=== PATIENT | female | born 1965 | race Caucasian/White ===

== ENCOUNTER 2016-06-19 12:49 | Emergency (ER) | payer SELFPAY ==
[~2016-06-19] VITALS: Ht 162.6 cm; Wt 118.0 kg
[~2016-06-19 12:49] MED LIST: AUGM875T PO; CYCL5TAB PO; GLIP5TAB8 PO; METF500T PO; OMEP40CA2 PO; VENTAER INH
[2016-06-19 12:55] VITALS: BP 136/88; PULSE 80; RESP 20; TEMP 97.7; O2SAT 97
--- NOTE | 2016-06-19 13:01 | PD ---
Physical Exam Date Seen by Provider: Jun 19, 2016 Time Seen by Provider: 12:56 Narrative Patient seen in Triage with Complaints of possible Hyperglycemia. Patient hasn' t been checking her Glucose due to being low on her Test Strips. Patient hasn' t felt well the past couple of days, with increased ROSADO, generalized Weakness, and increased Urination. Denies Fever, Chills, Nausea, Vomiting, Diarrhea, or Abdominal Pain. Glucose Finger Stick 326 in Triage. Vital Signs Stable. Patient awaiting Bed Placement. [facility] Medical Record Reviewed: Yes Supervised Visit with ARTURO: Yes Condition: Stable Alex Hernandez Jun 19, 2016 13:01
[2016-06-19] MEDS ORDERED: SODIUM CHLOR 0.9% 1000 ML INJ 1,000 ML IV SCH (14:09)
[2016-06-19] MEDS ORDERED: SODIUM CHLOR 0.9% 1000 ML INJ 1,000 ML IV ONE (14:15)
[2016-06-19] MEDS ORDERED: SODIUM CHLORIDE 0.9% FLUSH 10 ML FLUSH IV FLUSH PRN (14:15)
[2016-06-19] MEDS ORDERED: ONDANSETRON HCL 4 MG/2 ML VIAL IVP ONE (14:15)
--- NOTE | 2016-06-19 14:42 | RADRPT ---
EXAM DATE/TIME: 06/19/2016 14:21 [place] COMPARISON: CHEST SINGLE AP, February 16, 2016, 21:34. INDICATIONS : Cough, wheezing, shortness of breath for 1 week. MEDICAL HISTORY : None. SURGICAL HISTORY : None. ENCOUNTER: Initial ACUITY: 1 week PAIN SCORE: 0/10 LOCATION: chest FINDINGS: A single view of the chest demonstrates the lungs to be symmetrically aerated without evidence of mas s, infiltrate or effusion. The cardiomediastinal contours are unremarkable. Osseous structures are intact. CONCLUSION: 1. No acute cardiopulmonary disease. Alden Aguirre MD on June 19, 2016 at 14:41 Board Certified Radiologist. This report was verified electronically.
--- NOTE | 2016-06-19 14:53 | PD ---
HPI Chief Complaint: Diabetic Time Seen by Provider: 14:04 Travel History International Travel<30 days: No Contact w/Intl Traveler<30days: No Traveled to known affect area: No History of Present Illness HPI Patient is a 51-year-old female with history of diabetes type II who presents to emergency room with multiple complaints. Patient reports that she has not been feeling well for the past few days. Patient reports that she has been coughing, reports that she has been bringing up thick green mucous. Reports that she has grandchildren at home who were sick with similar symptoms. Patient reports that she has been having subjective fevers and chills, reports that she isn't feeling nauseous but has not vomited. Reports no recent travels or trips. Reports that she is not having any chest pain or shortness of breath at this time. Patient was concerned as she has overall decreased by mouth intake but blood sugar prior to coming to the emergency room was 439. PFSH Past Medical History Asthma: Yes Autoimmune Disease: No Blood Disorders: No Heart Rhythm Problems: No Cancer: No Cardiac Catheterization: Yes (2011) Cardiovascular Problems: Yes High Cholesterol: No Chest Pain: Yes Congestive Heart Failure: No COPD: No Diabetes: Yes Patient Takes Glucophage: Yes Diminished Hearing: No Endocrine: No Gastrointestinal Disorders: Yes (gerd) GERD: Yes Genitourinary: No Headaches: Yes Hypertension: No Implanted Vascular Access Dvce: No Kidney Stones: Yes Musculoskeletal: Yes (lower back pain) Neurologic: Yes Psychiatric: No Reproductive: No Respiratory: No Immunizations Current: Yes Migraines: Yes Myocardial Infarction: No Sleep Apnea: No Thyroid Disease: No Ulcer: No Tetanus Vaccination: > 5 Years Influenza Vaccination: No ?: Not Menopausal: Yes : 3 Para: 3 Tubal Ligation: Yes Past Surgical History Abdominal Surgery: Yes (EXPLORATORY FOR A MASS IN ABDOMEN) Cardiac Surgery: Yes (CATH, NO STENT. ARTERY OCCLUSION IN RIGHT FOREARM) Coronary Artery Bypass Graft: No Ear Surgery: No Endocrine Surgery: No Eye Surgery: No Genitourinary Surgery: No Gynecologic Surgery: Yes (OOPHERECTOMY 1998) Hysterectomy: Yes Neurologic Surgery: No Oral Surgery: No Thoracic Surgery: No Other Surgery: Yes (EXP LAP) Family History Family Myocardial Infarction: Yes (mother and father) Social History Alcohol Use: No Tobacco Use: No (never) Substance Use: No Allergies-Medications (Allergen,Severity, Reaction): Coded Allergies: Chocolate (Verified Allergy, Severe, Anaphylaxis, 06/19/16) Vancomycin (Verified Allergy, Severe, ITCH AND FEELS HOT STS LIKE RED MAN SYNDROME, 06/19/16) Reported Meds & Prescriptions Reported Meds & Active Scripts Active Azithromycin 500 Mg Tab 500 Mg PO DAILY Omeprazole 40 Mg Cap 40 Mg PO DAILY Reported Glipizide 5 Mg Tab 5 Mg PO BIDAC Take 30 minutes before a meal Metformin (Metformin HCl) 500 Mg Tab 500 Mg PO QID With meals Review of Systems General / Constitutional: No: Fever Eyes: No: Visual changes HENT: No: Headaches Cardiovascular: No: Chest Pain or Discomfort Respiratory: Positive: Cough, No: Shortness of Breath Gastrointestinal: Positive: Nausea, No: Vomiting, Abdominal Pain Genitourinary: No: Dysuria Musculoskeletal: No: Pain Skin: No Rash Neurologic: No: Weakness Psychiatric: No: Depression Endocrine: No: Polydipsia Hematologic/Lymphatic: No: Easy Bruising Physical Exam Narrative GENERAL: NAD, Nontoxic SKIN: Focused skin assessment warm/dry. HEAD: Atraumatic. Normocephalic. EYES: Pupils equal and round. ENT: No nasal bleeding or discharge. Mucous membranes pink and moist. NECK: Trachea midline. No JVD. CARDIOVASCULAR: Regular rate and rhythm. No murmur appreciated. RESPIRATORY: No accessory muscle use. Clear to auscultation. Breath sounds equal bilaterally. GASTROINTESTINAL: Abdomen soft, non-tender, nondistended. Hepatic and splenic margins not palpable. MUSCULOSKELETAL: No obvious deformities. No clubbing. No cyanosis. No edema. NEUROLOGICAL: Awake and alert. Normal speech. PSYCHIATRIC: Appropriate mood and affect; insight and judgment normal. Data Data Last Documented VS Vital Signs Date Time Temp Pulse Resp B/P Pulse Ox O2 Delivery O2 Flow Rate FiO2 06/19/16 16:00 65 16 98 Room Air 06/19/16 12:55 97.7 136/88 Orders Complete Blood Count With Diff (06/19/16 14:09) Comprehensive Metabolic Panel (06/19/16 14:09) Urinalysis - C+S If Indicated (06/19/16 14:09) Iv Access Insert/Monitor (06/19/16 14:09) Ecg Monitoring (06/19/16 14:09) Ondansetron Inj (Zofran Inj) (06/19/16 14:15) Sodium Chlor 0.9% 1000 Ml Inj (Ns 1000 M (06/19/16 14:09) Sodium Chloride 0.9% Flush (Ns Flush) (06/19/16 14:15) Chest, Single Ap (06/19/16 14:09) Influenzae A/B Antigen (06/19/16 14:09) Bedside Glucose IVANNA.AC&HS (06/19/16 14:09) Sodium Chlor 0.9% 1000 Ml Inj (Ns 1000 M (06/19/16 14:15) Azithromycin (Zithromax) (06/19/16 16:45) Azithromycin (Zithromax) (06/19/16 16:45) Bedside Glucose IVANNA.AC&HS (06/19/16 16:39) Labs Laboratory Tests Test 06/19/16 06/19/16 14:30 14:50 Urine Color YELLOW Urine Turbidity CLEAR Urine pH 5.0 Urine Specific [place] 1.022 Urine Protein NEG mg/dL Urine Glucose (UA) 1000 mg/dL Urine Ketones NEG mg/dL Urine Occult Blood NEG Urine Nitrite NEG Urine Bilirubin NEG Urine Urobilinogen LESS THAN 2.0 MG/DL Urine Leukocyte Esterase NEG Urine RBC 1 /hpf Urine WBC 3 /hpf Urine Squamous Epithelial <1 /hpf Cells Urine Bacteria FEW /hpf Urine Mucus FEW /lpf Urine Yeast (Budding) FEW Microscopic Urinalysis Comment CULT NOT INDICATED White Blood Count 7.5 TH/MM3 Red Blood Count 5.66 MIL/MM3 Hemoglobin 15.9 GM/DL Hematocrit 46.9 % Mean Corpuscular Volume 82.9 FL Mean Corpuscular Hemoglobin 28.2 PG Mean Corpuscular Hemoglobin 34.0 % Concent Red Cell Distribution Width 13.3 % Platelet Count 227 TH/MM3 Mean Platelet Volume 8.1 FL Neutrophils (%) (Auto) 62.8 % Lymphocytes (%) (Auto) 28.0 % Monocytes (%) (Auto) 6.9 % Eosinophils (%) (Auto) 1.9 % Basophils (%) (Auto) 0.4 % Neutrophils # (Auto) 4.7 TH/MM3 Lymphocytes # (Auto) 2.1 TH/MM3 Monocytes # (Auto) 0.5 TH/MM3 Eosinophils # (Auto) 0.1 TH/MM3 Basophils # (Auto) 0.0 TH/MM3 CBC Comment DIFF FINAL Differential Comment Sodium Level 136 MEQ/L Potassium Level 3.9 MEQ/L Chloride Level 102 MEQ/L Carbon Dioxide Level 25.1 MEQ/L Anion Gap 9 MEQ/L Blood Urea Nitrogen 10 MG/DL Creatinine 0.81 MG/DL Estimat Glomerular Filtration 75 ML/MIN Rate Random Glucose 291 MG/DL Calcium Level 9.9 MG/DL Total Bilirubin 0.5 MG/DL Aspartate Amino Transf 60 U/L (AST/SGOT) Alanine Aminotransferase 70 U/L (ALT/SGPT) Alkaline Phosphatase 162 U/L Total Protein 7.8 GM/DL Albumin 4.0 GM/DL MDM Medical Decision Making Medical Screen Exam Complete: Yes Emergency Medical Condition: Yes Interpretation(s) Vital Signs Date Time Temp Pulse Resp B/P Pulse Ox O2 Delivery O2 Flow Rate FiO2 06/19/16 14:23 16 97 Room Air 06/19/16 12:55 97.7 80 20 136/88 97 Room Air Differential Diagnosis Hyperglycemia, pneumonia, influenza, viral illness, electrolyte abnormality Narrative Course Patient is a 51-year-old female who presents to emergency room with multiple complaints. Patient reports that she has not been feeling well for the past few days, reports that she has been coughing, reports that she has been bringing up thick green mucous. Patient reports that she has also had subjective fevers and chills, reports that her grandchildren are sick with similar symptoms at home. Patient was concerned today as her blood sugar was elevated a low she has been taking her metformin and glipizide. Patient reports her blood sugar was 439 prior to arrival to emergency room. Overall, patient is nontoxic and evaluation, patient is afebrile with a temperature of 97.7, vital signs are stable. Labs as well as x-ray of the chest, influenza, ordered. Blood sugar checked here which was 326. Will give IVF at this time. CBC & BMP Diagram 06/19/16 14:50 Last Impressions Chest X-Ray 06/19/16 1409 Signed Impressions: Service Date/Time: May 14:21 - CONCLUSION: 1. No acute cardiopulmonary disease. Alden Aguirre MD Last Impressions Chest X-Ray 06/19/16 1409 Signed Impressions: Service Date/Time: May 14:21 - CONCLUSION: 1. No acute cardiopulmonary disease. Alden Aguirre MD Microbiology Date/Time Procedure Status Source Growth 06/19/16 14:33 Influenza Types A,B Antigen (SELENE) - Final Complete Nasal Aspirate NEGATIVE FOR FLU A AND B ANTIGEN.... Patient feeling much better at this time, did all labs and all studies with patient detail. Will treat patient for her bronchitis. Discussed need to follow up with PCP. She will return to ER if symptoms progress or worsen Diagnosis Primary Impression: Bronchitis Additional Impression: Hyperglycemia Patient Instructions: General Instructions Additional Instructions: Please follow-up with your primary care doctor Please drink plenty of fluids Take all medications as prescribed Return to emergency room if symptoms progress or worsen Med/Other Pt SpecificInfo: Prescription(s) given Scripts Azithromycin 500 Mg [id number] Mg PO DAILY #5 TAB Ref 0 Prov:Skylar Morales DO 06/19/16 Disposition: 01 DISCHARGE HOME Condition: Stable Skylar Morales DO Jun 19, 2016 14:53
[2016-06-19 15:09] LABS: AUTOMATED NEUTROPHIL # 4.7 TH/MM3 (1.8-7.7); BASOPHIL % 0.4 % (0.0-2.0); EOSINOPHIL # 0.1 TH/MM3 (0-0.4); EOSINOPHIL % 1.9 % (0.0-4.0); HEMATOCRIT 46.9 % (35.0-46.0); HEMO FLAGS DIFF FINAL; LYMPHOCYTE # 2.1 TH/MM3 (1.0-4.8); MEAN CELL VOLUME 82.9 FL (80.0-100.0); MEAN CORPUSCULAR HEMOGLOBIN 28.2 PG (27.0-34.0); MONO % 6.9 % (0.0-8.0); NEUT % 62.8 % (16.0-70.0); PLATELET COUNT 227 TH/MM3 (150-450); RED BLOOD COUNT 5.66 MIL/MM3 (4.00-5.30); RED CELL DISTRIBUTION WIDTH 13.3 % (11.6-17.2); WHITE BLOOD COUNT 7.5 TH/MM3 (4.0-11.0)
[2016-06-19 15:15] LABS: BACTERIA, URINE FEW /hpf; BLOOD, URINE NEG (NEG); COMMENT (UR) CULT NOT INDICATED; CULTURE IF INDICATED CULT NOT INDICATED; GLUCOSE,URINE 1000 mg/dL (NEG); KETONE, URINE NEG (NEG); MUCUS URINE FEW /lpf (OCC); NITRITE,URINE NEG (NEG); SQUAMOUS EPITHELIAL CELL URINE <1 /hpf (0-5); URINE COLOR YELLOW (YELLW/STRAW)
[2016-06-19 15:27] LABS: ALT (GPT) 70 U/L (10-53); ANION GAP 9 MEQ/L (5-15); AST (GOT) 60 U/L (15-37); BICARBONATE 25.1 MEQ/L (21.0-32.0); BLOOD UREA NITROGEN 10 MG/DL (7-18); CHLORIDE 102 MEQ/L (98-107); GLOMERULAR FILTRATION RATE 75 ML/MIN (>89); POTASSIUM 3.9 MEQ/L (3.5-5.1); SODIUM (NA) 136 MEQ/L (136-145)
[2016-06-19 15:28] LABS: ALKALINE PHOSPHATASE 162 U/L (45-117); TOTAL BILIRUBIN ADULT 0.5 MG/DL (0.2-1.0)
[2016-06-19 16:00] VITALS: PULSE 65; RESP 16; O2SAT 98
[2016-06-19] MEDS ORDERED: AZIT500T2 PO (16:37)
[2016-06-19] MEDS ORDERED: AZITHROMYCIN 250 MG TAB PO ONE ×2 (16:45)
[2016-06-19 17:04] VITALS: BP 119/72; PULSE 68; RESP 16; O2SAT 98
== END 2016-06-19 18:06 | disposition home or self-care (01) ==
LOC: NEPB 12:49
DX: J40 Bronchitis, not specified as acute or chronic (principal); E11.65 Type 2 diabetes mellitus with hyperglycemia; Z79.84 Long term (current) use of oral hypoglycemic drugs
CPT/HCPCS: 71010; 80053; 81001; 85025; 87804; 96361; 96374; 99285; J2405; J7030

== ENCOUNTER 2016-09-29 07:20 | Emergency (ER) | payer SELFPAY ==
[~2016-09-29] VITALS: Ht 162.6 cm; Wt 110.0 kg
[~2016-09-29 07:20] MED LIST changes: -AUGM875T PO; +AZIT500T2 PO; -CYCL5TAB PO; -VENTAER INH
[2016-09-29 07:22] VITALS: BP 130/78; PULSE 72; RESP 20; TEMP 97.8; O2SAT 98
--- NOTE | 2016-09-29 07:55 | PD ---
HPI Chief Complaint: Tele Marketing Executive Problem/Complaint Time Seen by Provider: 07:53 Travel History International Travel<30 days: No Contact w/Intl Traveler<30days: No Traveled to known affect area: No History of Present Illness HPI 51-year-old female with history of diabetes, presents to the ER today with several weeks' history of vaginal discharge, burning on urination and irritation around the vaginal area. She also feels like she has been having low -grade fevers. She denies any nausea, abdominal pains, vomiting, or any other symptoms. Modifying Factors: None Associated Signs & Symptoms: Vaginal discharge, itchiness, urinary burning Risk Factors: Diabetes PFSH Past Medical History Hx Anticoagulant Therapy: Yes (asa) Asthma: Yes Autoimmune Disease: No Blood Disorders: No Heart Rhythm Problems: No Cancer: No Cardiac Catheterization: Yes (2011) Cardiovascular Problems: Yes High Cholesterol: No Chest Pain: Yes Congestive Heart Failure: No COPD: No Diabetes: Yes (metformin) Patient Takes Glucophage: No Diminished Hearing: No Endocrine: No Gastrointestinal Disorders: Yes (gerd) GERD: Yes Genitourinary: No Headaches: Yes Hypertension: No Implanted Vascular Access Dvce: No Kidney Stones: Yes Musculoskeletal: Yes (lower back pain) Neurologic: Yes Psychiatric: No Reproductive: No Respiratory: No Immunizations Current: Yes Migraines: Yes Myocardial Infarction: No Sleep Apnea: No Thyroid Disease: No Ulcer: No ?: Not Menopausal: Yes : 3 Para: 3 Tubal Ligation: Yes Past Surgical History Abdominal Surgery: Yes (EXPLORATORY FOR A MASS IN ABDOMEN) Cardiac Surgery: Yes (CATH, NO STENT. ARTERY OCCLUSION IN RIGHT FOREARM) Coronary Artery Bypass Graft: No Ear Surgery: No Endocrine Surgery: No Eye Surgery: No Genitourinary Surgery: No Gynecologic Surgery: Yes (OOPHERECTOMY 1998) Hysterectomy: Yes Neurologic Surgery: No Oral Surgery: No Thoracic Surgery: No Other Surgery: Yes (EXP LAP) Family History Family Myocardial Infarction: Yes (mother and father) Social History Alcohol Use: No Tobacco Use: No (never) Substance Use: No Allergies-Medications (Allergen,Severity, Reaction): Coded Allergies: Chocolate (Verified Allergy, Severe, Anaphylaxis, 09/29/16) Vancomycin (Verified Allergy, Severe, ITCH AND FEELS HOT STS LIKE RED MAN SYNDROME, 09/29/16) Reported Meds & Prescriptions Reported Meds & Active Scripts Active Azithromycin 500 Mg Tab 500 Mg PO DAILY Omeprazole 40 Mg Cap 40 Mg PO DAILY Reported Glipizide 5 Mg Tab 5 Mg PO BIDAC Take 30 minutes before a meal Metformin (Metformin HCl) 500 Mg Tab 500 Mg PO QID With meals Review of Systems Except as stated in HPI: all other systems reviewed are Neg Physical Exam Narrative GENERAL: Well-developed middle age female patient currently in no acute distress. SKIN: Focused skin assessment warm/dry. HEAD: Atraumatic. Normocephalic. EYES: Pupils equal and round. No scleral icterus. No injection or drainage. ENT: No nasal bleeding or discharge. Mucous membranes pink and moist. NECK: Trachea midline. No JVD. CARDIOVASCULAR: Regular rate and rhythm. No murmur appreciated. RESPIRATORY: No accessory muscle use. Clear to auscultation. Breath sounds equal bilaterally. GASTROINTESTINAL: Abdomen soft, non-tender, nondistended. Hepatic and splenic margins not palpable. GENITOURINARY: Normal external genitalia without lesions or erythema. Vaginal vault without blood but notable for whitish drainage. MUSCULOSKELETAL: No obvious deformities. No clubbing. No cyanosis. No edema. NEUROLOGICAL: Awake and alert. No obvious cranial nerve deficits. Motor grossly within normal limits. Normal speech. PSYCHIATRIC: Appropriate mood and affect; insight and judgment normal. Data Data Last Documented VS Vital Signs Date Time Temp Pulse Resp B/P Pulse Ox O2 Delivery O2 Flow Rate FiO2 09/29/16 07:22 97.8 72 20 130/78 98 Room Air Orders Gc And Chlamydia Pcr (09/29/16 07:43) Wet Prep Profile (09/29/16 07:43) Urinalysis - C+S If Indicated (09/29/16 07:43) Labs Laboratory Tests Test 09/29/16 07:53 Urine Color YELLOW Urine Turbidity CLEAR Urine pH 5.5 Urine Specific [place] 1.046 Urine Protein NEG mg/dL Urine Glucose (UA) 1000 mg/dL Urine Ketones NEG mg/dL Urine Occult Blood NEG Urine Nitrite NEG Urine Bilirubin NEG Urine Urobilinogen LESS THAN 2.0 MG/DL Urine Leukocyte Esterase TRACE Urine RBC 1 /hpf Urine WBC 1 /hpf Urine Squamous Epithelial 1 /hpf Cells Urine Yeast (Budding) RARE Microscopic Urinalysis Comment CULT NOT INDICATED Clue Cells (Wet Prep) NONE SEEN Vaginal Trichomonas (Wet Prep) NONE SEEN Vaginal Yeast (Wet Prep) NONE SEEN MDM Medical Decision Making Medical Screen Exam Complete: Yes Emergency Medical Condition: Yes Medical Record Reviewed: Yes Interpretation(s) Laboratory Tests Test 09/29/16 07:53 Urine Specific [place] 1.046 (1.002-1.035) Urine Glucose (UA) 1000 mg/dL (NEG) Urine Leukocyte Esterase TRACE (NEG) Urine Yeast (Budding) RARE (NONE) Differential Diagnosis Vaginal discharge, dysuriavaginitis versus yeast infection versus UTI Narrative Course Exam and urine are indicative of a yeast infection. My plan would be to give her Diflucan and have her follow-up as necessary with primary care physician. Return for worsening in symptoms as needed. The plan has been discussed with her and she states understanding. Diagnosis Primary Impression: Yeast vaginitis Med/Other Pt SpecificInfo: Prescription(s) given Scripts Fluconazole (Diflucan)150 Mg [id number] Mg PO ONCE #1 TAB Ref 0 Prov:Max Schwarz MD 09/29/16 Disposition: 01 DISCHARGE HOME Condition: Stable Max Schwarz MD Sep 29, 2016 07:55
[2016-09-29 08:44] LABS: BLOOD, URINE NEG (NEG); COMMENT (UR) CULT NOT INDICATED; CULTURE IF INDICATED CULT NOT INDICATED; GLUCOSE,URINE 1000 mg/dL (NEG); KETONE, URINE NEG (NEG); NITRITE,URINE NEG (NEG); PH, URINE 5.5 (5.0-8.5); SQUAMOUS EPITHELIAL CELL URINE 1 /hpf (0-5); URINE COLOR YELLOW (YELLW/STRAW)
[2016-09-29] MEDS ORDERED: DIFL150T PO (09:23)
[2016-09-29 09:39] VITALS: BP 128/78; PULSE 74; RESP 20; O2SAT 98
[2016-09-29 11:10] LABS: CHLAMYDIA PCR NOT DETECTED (NOT DETECT); NEISSERIA PCR NOT DETECTED (NOT DETECT)
== END 2016-09-29 09:42 | disposition home or self-care (01) ==
LOC: NEPC 07:20
DX: N76.0 Acute vaginitis (principal); E11.9 Type 2 diabetes mellitus without complications; J45.909 Unspecified asthma, uncomplicated; K21.9 Gastro-esophageal reflux disease without esophagitis; Z79.899 Other long term (current) drug therapy
CPT/HCPCS: 81001; 87210; 87491; 87591; 99283

== ENCOUNTER 2016-11-14 17:34 | Observation (INO) | payer SELFPAY ==
[~2016-11-14] VITALS: Ht 162.6 cm; Wt 95.0 kg
[~2016-11-14 17:34] MED LIST changes: +DIFL150T PO
[2016-11-14] MEDS ORDERED: IOHEXOL 350 MG/ML 10 ML VIAL (for RAD DIAG) IVCONTRAST ONE (17:35)
[2016-11-14 17:37] VITALS: BP 149/89; PULSE 81; RESP 15; TEMP 98.4; O2SAT 99
[2016-11-14] MEDS ORDERED: MORPHINE SULFATE 4 MG/ML INJ IV PUSH ONE (20:00)
[2016-11-14] MEDS ORDERED: SODIUM CHLORID 0.9% 500 ML INJ 500 ML IV ONE (20:00)
[2016-11-14] MEDS ORDERED: ONDANSETRON HCL 4 MG/2 ML VIAL IV PUSH ONE (20:00)
[2016-11-14] MEDS ORDERED: SODIUM CHLORIDE 0.9% FLUSH 10 ML FLUSH IVF PRN (20:00)
[2016-11-14 20:06] VITALS: BP 117/90; PULSE 82; TEMP 97.9; O2SAT 100
[2016-11-14 20:09] VITALS: O2SAT 99
--- NOTE | 2016-11-14 20:26 | PD ---
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 She states the pain worsens with movement and deep breaths. She states that it feels like Imbler he had hit her on the chest. She states it feels different from her "heart pain" which she states feels more like a pressure. She states that she has had intermittent problems with pain in this arm in the past. Modifying Factors: None Associated Signs & Symptoms: Right arm pain and right sided chest pain Risk Factors: Previous right arm arterial injury and occlusion PFSH Past Medical History Hx Anticoagulant Therapy: Yes (asa) Asthma: Yes Autoimmune Disease: No Blood Disorders: No Heart Rhythm Problems: No Cancer: No Cardiac Catheterization: Yes (2011) Cardiovascular Problems: Yes High Cholesterol: No Chest Pain: Yes Congestive Heart Failure: No COPD: No Diabetes: Yes Patient Takes Glucophage: Yes Diminished Hearing: No Endocrine: No Gastrointestinal Disorders: Yes (gerd) GERD: Yes Genitourinary: No Headaches: Yes Hypertension: No Implanted Vascular Access Dvce: No Kidney Stones: Yes Musculoskeletal: Yes (lower back pain) Neurologic: Yes Psychiatric: No Reproductive: No Respiratory: No Immunizations Current: No Migraines: Yes Myocardial Infarction: No Sleep Apnea: No Thyroid Disease: No Ulcer: No Influenza Vaccination: No ?: Not LMP: N/A Menopausal: Yes : 3 Para: 2 Tubal Ligation: Yes Past Surgical History Abdominal Surgery: Yes (EXPLORATORY FOR A MASS IN ABDOMEN) Cardiac Surgery: Yes (CATH, NO STENT. ARTERY OCCLUSION IN RIGHT FOREARM) Section: No Coronary Artery Bypass Graft: No Ear Surgery: No Endocrine Surgery: No Eye Surgery: No Genitourinary Surgery: No Gynecologic Surgery: Yes (OOPHERECTOMY 1998) Hysterectomy: Yes Neurologic Surgery: No Oral Surgery: No Thoracic Surgery: No Other Surgery: Yes (EXP LAP) Social History Alcohol Use: No Tobacco Use: No Substance Use: No Allergies-Medications (Allergen,Severity, Reaction): Coded Allergies: chocolate flavor (Unverified Allergy, Severe, Anaphylaxis, 11/04/16) vancomycin (Unverified Allergy, Severe, ITCH AND FEELS HOT STS LIKE RED MAN SYNDROME, 11/04/16) Reported Meds & Prescriptions Reported Meds & Active Scripts Active Omeprazole 40 Mg Cap 40 Mg PO DAILY Reported Glipizide 5 Mg Tab 5 Mg PO BIDAC Take 30 minutes before a meal Metformin (Metformin HCl) 500 Mg Tab 500 Mg PO QID With meals Review of Systems Except as stated in HPI: all other systems reviewed are Neg Physical Exam Narrative GENERAL: Well-developed middle age white female patient currently in mild distress. Awake and oriented 3. SKIN: Focused skin assessment warm/dry. HEAD: Atraumatic. Normocephalic. EYES: Pupils equal and round. No scleral icterus. No injection or drainage. ENT: No nasal bleeding or discharge. Mucous membranes pink and moist. NECK: Trachea midline. No JVD. CARDIOVASCULAR: Regular rate and rhythm. No murmur appreciated. CHEST: Tender to palpation of the right anterior chest wall, right shoulder, and down the arm. No retractions or use of accessory muscles. EXTREMITIES: No clubbing, cyanosis, or edema. I am not able to palpate a radial pulse in the right arm although I do not see any signs of obvious cyanosis. There is a strong palpable ulnar pulse. RESPIRATORY: No accessory muscle use. Clear to auscultation. Breath sounds equal bilaterally. GASTROINTESTINAL: Abdomen soft, non-tender, nondistended. Hepatic and splenic margins not palpable. MUSCULOSKELETAL: No obvious deformities. No clubbing. No cyanosis. No edema. NEUROLOGICAL: Awake and alert. No obvious cranial nerve deficits. Motor grossly within normal limits. Normal speech. PSYCHIATRIC: Appropriate mood and affect; insight and judgment normal. Data Data Last Documented VS Vital Signs Date Time Temp Pulse Resp B/P (MAP) Pulse Ox O2 Delivery O2 Flow Rate FiO2 11/14/16 20:09 99 11/14/16 20:09 Room Air 11/14/16 20:06 97.9 82 11/14/16 17:37 15 Orders Orders Electrocardiogram (11/14/16 19:49) Ckmb (Isoenzyme) Profile (11/14/16 19:49) Complete Blood Count With Diff (11/14/16 19:49) Comprehensive Metabolic Panel (11/14/16 19:49) Magnesium (Mg) (11/14/16 19:49) Prothrombin Time / Inr (Pt) (11/14/16 19:49) Act Partial Throm Time (Ptt) (11/14/16 19:49) Troponin I (11/14/16 19:49) Chest, Single Ap (11/14/16 19:49) Ecg Monitoring (11/14/16 19:49) Bilateral Bp Monitoring (11/14/16 19:49) Iv Access Insert/Monitor (11/14/16 19:49) Oximetry (11/14/16 19:49) Oxygen Administration (11/14/16 19:49) Morphine Inj (Morphine Inj) (11/14/16 20:00) Sodium Chloride 0.9% Flush (Ns Flush) (11/14/16 20:00) Sodium Chlorid 0.9% 500 Ml Inj (Ns 500 M (11/14/16 20:00) Ondansetron Inj (Zofran Inj) (11/14/16 20:00) Cta Up Extrem W Iv Cont W 3d (11/14/16 ) Iohexol 350 Inj (Omnipaque 350 Inj) (11/14/16 17:35) Admit Order (Ed Use Only) (11/14/16 22:02) Activity Bed Rest With Brp (11/14/16 22:02) Vital Signs (Adult) Q4H (11/14/16 22:02) Cardiac Rhythm .As Directed (11/14/16 22:02) Labs Laboratory Tests Test 11/14/16 20:30 White Blood Count 8.7 TH/MM3 Red Blood Count 5.95 MIL/MM3 Hemoglobin 17.1 GM/DL Hematocrit 50.6 % Mean Corpuscular Volume 85.0 FL Mean Corpuscular Hemoglobin 28.7 PG Mean Corpuscular Hemoglobin Concent 33.8 % Red Cell Distribution Width 13.3 % Platelet Count 267 TH/MM3 Mean Platelet Volume 8.0 FL Neutrophils (%) (Auto) 61.0 % Lymphocytes (%) (Auto) 30.2 % Monocytes (%) (Auto) 6.8 % Eosinophils (%) (Auto) 1.7 % Basophils (%) (Auto) 0.3 % Neutrophils # (Auto) 5.3 TH/MM3 Lymphocytes # (Auto) 2.6 TH/MM3 Monocytes # (Auto) 0.6 TH/MM3 Eosinophils # (Auto) 0.1 TH/MM3 Basophils # (Auto) 0.0 TH/MM3 CBC Comment DIFF FINAL Differential Comment Prothrombin Time 10.4 SEC Prothromb Time International Ratio 0.9 RATIO Activated Partial Thromboplast Time 24.5 SEC Blood Urea Nitrogen 17 MG/DL Creatinine 0.86 MG/DL Random Glucose 240 MG/DL Total Protein 8.2 GM/DL Albumin 4.0 GM/DL Calcium Level 9.0 MG/DL Magnesium Level 2.1 MG/DL Alkaline Phosphatase 171 U/L Aspartate Amino Transf (AST/SGOT) 29 U/L Alanine Aminotransferase (ALT/SGPT) 60 U/L Total Bilirubin 0.4 MG/DL Sodium Level 136 MEQ/L Potassium Level 3.7 MEQ/L Chloride Level 101 MEQ/L Carbon Dioxide Level 26.6 MEQ/L Anion Gap 8 MEQ/L Estimat Glomerular Filtration Rate 70 ML/MIN Total Creatine Kinase 33 U/L Troponin I LESS THAN 0.02 NG/ML [facility] Medical Decision Making Medical Screen Exam Complete: Yes Emergency Medical Condition: Yes Medical Record Reviewed: Yes Interpretation(s) EKG shows NSR, no ST elevation or depression, and no arrhythmias. No significant T-wave inversions. Laboratory Tests Test 11/14/16 20:30 Red Blood Count 5.95 MIL/MM3 (4.00-5.30) Hemoglobin 17.1 GM/DL (11.6-15.3) Hematocrit 50.6 % (35.0-46.0) Random Glucose 240 MG/DL (74-106) Alkaline Phosphatase 171 U/L (45-117) Alanine Aminotransferase (ALT/SGPT) 60 U/L (10-53) Estimat Glomerular Filtration Rate 70 ML/MIN (>89) Troponin I LESS THAN 0.02 NG/ML Differential Diagnosis Chronic claudication of the right arm secondary to arterial injury years ago versus acute arterial occlusion versus muscle strain versus ACS versus chest wall strain versus pulmonary issues Narrative Course Chest x-ray did not show any signs of acute pulmonary processes. I do not see any signs of obvious arm cyanosis. She has an area tenderness of her entire anterior chest down her right arm. Chest pain is fairly atypical although patient does have cardiac history and does not have follow-up. Her CTA of the arm did not show any signs of vascular compromise. Cardiac enzymes are negative and EKG was unremarkable. At this point, I have talked to the patient regarding findings and my plan would be to admit her for further evaluation for atypical chest pain. Diagnosis Primary Impression: Chest pain, atypical Admitting Information Admitting Physician Requests: it Max Schwarz MD Nov 14, 2016 20:26
[2016-11-14 20:58] LABS: AUTOMATED NEUTROPHIL # 5.3 TH/MM3 (1.8-7.7); BASOPHIL % 0.3 % (0.0-2.0); EOSINOPHIL # 0.1 TH/MM3 (0-0.4); EOSINOPHIL % 1.7 % (0.0-4.0); HEMATOCRIT 50.6 % (35.0-46.0); HEMO FLAGS DIFF FINAL; LYMPH % 30.2 % (9.0-44.0); LYMPHOCYTE # 2.6 TH/MM3 (1.0-4.8); MEAN CORPUSCULAR HEMOGLOBIN 28.7 PG (27.0-34.0); MEAN CORPUSCULAR HGB CONC 33.8 % (32.0-36.0); MONO % 6.8 % (0.0-8.0); PLATELET COUNT 267 TH/MM3 (150-450); RED BLOOD COUNT 5.95 MIL/MM3 (4.00-5.30); RED CELL DISTRIBUTION WIDTH 13.3 % (11.6-17.2); WHITE BLOOD COUNT 8.7 TH/MM3 (4.0-11.0)
--- NOTE | 2016-11-14 20:59 | RADRPT ---
EXAM DATE/TIME: 11/14/2016 20:48 [facility] COMPARISON: CHEST SINGLE AP, June 19, 2016, 14:21. INDICATIONS : Chest pain and shortness of breath. MEDICAL HISTORY : Diabetes mellitus type II. SURGICAL HISTORY : None. ENCOUNTER: Initial ACUITY: 1 week PAIN SCORE: 8/10 LOCATION: Bilateral chest FINDINGS: A single view of the chest demonstrates the lungs to be symmetrically aerated without evidence of mas s, infiltrate or effusion. The cardiomediastinal contours are unremarkable. Osseous structures are intact. CONCLUSION: No evidence of acute cardiopulmonary disease. Luis Bates MD on November 14, 2016 at 20:57 Board Certified Radiologist. This report was verified electronically.
[2016-11-14 21:06] LABS: ANION GAP 8 MEQ/L (5-15); AST (GOT) 29 U/L (15-37); BICARBONATE 26.6 MEQ/L (21.0-32.0); BLOOD UREA NITROGEN 17 MG/DL (7-18); CHLORIDE 101 MEQ/L (98-107); GLOMERULAR FILTRATION RATE 70 ML/MIN (>89); MAGNESIUM 2.1 MG/DL (1.5-2.5); POTASSIUM 3.7 MEQ/L (3.5-5.1); SODIUM (NA) 136 MEQ/L (136-145)
[2016-11-14 21:12] LABS: ALKALINE PHOSPHATASE 171 U/L (45-117); ALT (GPT) 60 U/L (10-53); TOTAL BILIRUBIN ADULT 0.4 MG/DL (0.2-1.0)
[2016-11-14 21:18] LABS: CREATINE KINASE 33 U/L (26-192)
[2016-11-14 21:26] LABS: APTT (PATIENT) 24.5 SEC (24.3-30.1); INTERNATIONAL NORMALIZED RATIO 0.9 RATIO; PROTHROMBIN TIME - PATIENT 10.4 SEC (9.8-11.6)
--- NOTE | 2016-11-14 21:51 | RADRPT ---
EXAM DATE/TIME: 11/14/2016 21:19 [facility] COMPARISON: CHEST SINGLE AP, November 14, 2016, 20:48. INDICATIONS : Right arm and chest pain with movement and deep breaths. IV CONTRAST: 99 cc Omnipaque 350 (iohexol) IV RADIATION DOSE: 8.4 CTDIvol (mGy) MEDICAL HISTORY : Cardiovascular disease. Diabetes mellitus type 1. SURGICAL HISTORY : Hysterectomy. ENCOUNTER: Initial ACUITY: 1 day PAIN SCALE: 7/10 LOCATION: Right arm TECHNIQUE: Volumetric scanning was performed using a multirow detector CT scanner. Using automated exposure cont rol and adjustment of the mA and/or kV according to patient size, radiation dose was kept as low as r easonably achievable to obtain optimal diagnostic quality images. The data was post processed with a variety of visualization algorithms including full-volume maximum intensity projection, multiplanar sliding thin-slab reformation, curved-planar reformation, and surface-rendering techniques. Using au tomated exposure control and adjustment of the mA and/or kV according to patient size, radiation dose was kept as low as reasonably achievable to obtain optimal diagnostic quality images. DICOM format image data is available electronically for review and comparison. FINDINGS: Right upper extremity arteries have normal course and caliber. No aneurysm or thrombosis. No mass or fluid collection demonstrated. There is no evidence of an acute bony abnormality. CONCLUSION: Negative CTA of the right upper extremity. Luis Bates MD on November 14, 2016 at 21:46 Board Certified Radiologist. This report was verified electronically.
[2016-11-14] MEDS ORDERED: SODIUM CHLORIDE 0.9% FLUSH 10 ML FLUSH IV FLUSH PRN (22:15)
[2016-11-14 22:22] VITALS: O2SAT 97
[2016-11-14 23:41] LABS: CREATINE KINASE 33 U/L (26-192)
[2016-11-14 23:49] VITALS: BP 122/58; PULSE 74; RESP 18; TEMP 97.1; O2SAT 98
[2016-11-15] VITALS (7 sets, daily range): BP systolic 94–127; BP diastolic 53–66; PULSE 67–73; RESP 16–20; TEMP 98.1–98.2; O2SAT 97–100
[2016-11-15 03:34] LABS: CREATINE KINASE 25 U/L (26-192)
[2016-11-15] MEDS ORDERED: ONDANSETRON HCL 4 MG/2 ML VIAL IV PRN (07:45)
[2016-11-15] MEDS ORDERED: ACETAMINOPHEN 500 MG CPLT PO PRN (07:45)
[2016-11-15] MEDS ORDERED: NITROGLYCERIN 0.4 MG SL 25 TABS/BTL SL PRN (07:45)
--- NOTE | 2016-11-15 08:33 | HHI.HP ---
HPI Primary Care Physician No Primary Care Physician Chief Complaint Chest pain History of Present Illness 51-year-old female with history of type 2 diabetes, GERD, and asthma presents to emergency room for further evaluation of chest pain. Onset yesterday while moving a washing machine. Location right anterior chest. Characterized as someone "pushing on me." No radiation of pain. Although states she also hurt her right shoulder while moving yesterday. Duration chest pain 45-60 minutes. No associated symptoms of nausea, vomiting, diaphoresis, or shortness of breath. No known precipitating or relieving factors. Upon further discussion endorses intermittent right-sided chest pain occurs twice weekly for the past 2 weeks. Nonexertional. Review of Systems General: No fatigue,weakness, fever, chills, or recent illness. Has been in her general state of health. HEENT: History of migraines, reports she has been experiencing more headaches lately. Current mild headache. CV: As stated above. No current chest pain or pressure. RESP: No SOB, cough, or sputum production. History of asthma. GI: No nausea, vomiting, or bowel changes. : No dysuria EXT: No lower leg edema, no paraesthesias MS: Right shoulder severe discomfort with movement. No numbness or tingling of extremities. No change in ROM NEURO: No LOC, motor/sensory deficits PSYCH: No anxiety, depression, or situational stress. Past Family Social History Allergies: Coded Allergies: chocolate flavor (Unverified Allergy, Severe, Anaphylaxis, 11/04/16) vancomycin (Unverified Allergy, Severe, ITCH AND FEELS HOT STS LIKE RED MAN SYNDROME, 11/04/16) Past Medical History Diabetes type 2, GERD, migraines, asthma, right arm arterial occlusion from past cardiac catheterization in 2011. Past Surgical History Tubal ligation, hysterectomy, benign gastric mass removed Reported Medications Active Omeprazole 40 Mg Cap 40 Mg PO DAILY Glipizide 5 Mg Tab 5 Mg PO BIDAC Take 30 minutes before a meal Metformin (Metformin HCl) 500 Mg Tab 500 Mg PO QID With meals Active Ordered Medications Current Medications Medications (Trade) Dose Ordered Sig/Diony Route Start Time Stop Time Status Last Admin (NS Flush) 2 ml UNSCH PRN IVF 11/14/16 20:00 (NS Flush) 2 ml UNSCH PRN IV FLUSH 11/14/16 22:15 (Pneumovax-23 Inj) 25 mcg ONCE ONCE IM 11/16/16 10:00 11/16/16 10:01 (Tylenol) 500 mg Q4H PRN PO 11/15/16 07:45 (Zofran Inj) 4 mg Q6H PRN IV 11/15/16 07:45 (Nitrostat Sl) 0.4 mg Q5M PRN SL 11/15/16 07:45 (Aspirin) 325 mg DAILY PO 11/15/16 09:00 Social History Known diabetes. Denies any known hypertension or hyperlipidemia. Lifelong nonsmoker. Denies any alcohol or illegal drug use. Past cardiac testing 11/23/14-Lexiscan Scintigraphic finding concern for ischemia in circumflex region , EF 70%. 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 Results of lexiscan thought to be unremarkable and was discharged home. 2011 cardiac catheterization-completed on [facility] (cannot remember name of hospital)-reported no intervention required, although experienced right radial artery occlusion complication. Physical Exam Vital Signs Vital Signs Date Time Temp Pulse Resp B/P (MAP) Pulse Ox O2 Delivery O2 Flow Rate FiO2 11/15/16 07:23 98.1 70 17 96/53 (67) 100 11/15/16 04:41 70 11/15/16 03:39 98.1 73 16 94/54 (67) 98 11/15/16 03:36 72 11/14/16 23:49 97.1 74 18 122/58 (79) 98 11/14/16 23:18 11/14/16 22:22 97 11/14/16 20:09 99 11/14/16 20:09 99 Room Air 11/14/16 20:06 97.9 82 117/90 (99) 100 Nasal Cannula 11/14/16 20:06 100 Nasal Cannula 11/14/16 17:37 98.4 81 15 149/89 (109) 99 Physical Exam GENERAL: Alert WN, WD, NAD, pleasant, obese female HEAD: NC, AT CV: RRR, without murmur, rub, gallop, no JVD, S1-S2 no S3-S4. RESP: Clear lungs throughout bilateral, no crackles, wheeze, rhonchi, symmetrical chest rise, nonlabored, able to speak in full sentences ABD: Soft, NT, ND, no masses, positive bowel tones, obese EXT: Pulses +24, no dependent edema MS: Right shoulder tender with passive ROM. Normal tone 4 extremities, Right anterior chest and shoulder pain tender with palpation. no obvious deformities, full range of motion NEURO: CN II through CN XII grossly intact, motor strength 5/5 PSYCH: A+O 3, pleasant affect, appropriate speech, appropriate mood and affect , insight and judgment SKIN: Normal turgor, normal texture, tattoos Laboratory Laboratory Tests Test 11/14/16 20:30 11/14/16 23:05 11/15/16 02:35 White Blood Count 8.7 Red Blood Count 5.95 Hemoglobin 17.1 Hematocrit 50.6 Mean Corpuscular Volume 85.0 Mean Corpuscular Hemoglobin 28.7 Mean Corpuscular Hemoglobin Concent 33.8 Red Cell Distribution Width 13.3 Platelet Count 267 Mean Platelet Volume 8.0 Neutrophils (%) (Auto) 61.0 Lymphocytes (%) (Auto) 30.2 Monocytes (%) (Auto) 6.8 Eosinophils (%) (Auto) 1.7 Basophils (%) (Auto) 0.3 Neutrophils # (Auto) 5.3 Lymphocytes # (Auto) 2.6 Monocytes # (Auto) 0.6 Eosinophils # (Auto) 0.1 Basophils # (Auto) 0.0 CBC Comment DIFF FINAL Differential Comment Prothrombin Time 10.4 Prothromb Time International Ratio 0.9 Activated Partial Thromboplast Time 24.5 Blood Urea Nitrogen 17 Creatinine 0.86 Random Glucose 240 Total Protein 8.2 Albumin 4.0 Calcium Level 9.0 Magnesium Level 2.1 Alkaline Phosphatase 171 Aspartate Amino Transf (AST/SGOT) 29 Alanine Aminotransferase (ALT/SGPT) 60 Total Bilirubin 0.4 Sodium Level 136 Potassium Level 3.7 Chloride Level 101 Carbon Dioxide Level 26.6 Anion Gap 8 Estimat Glomerular Filtration Rate 70 Total Creatine Kinase 33 33 25 Troponin I LESS THAN 0.02 LESS THAN 0.02 LESS THAN 0.02 Result Diagram: 11/14/16202911/14/162029 Imaging Last Impressions Chest X-Ray 11/14/161948 Signed Impressions: Service Date/Time: Monday, November 14, 2016 20:48 - CONCLUSION: No evidence of acute cardiopulmonary disease. Luis Bates MD Upper Extremity CTA 11/14/16 0000 Signed Impressions: Service Date/Time: Monday, November 14, 2016 21:19 - CONCLUSION: Negative CTA of the right upper extremity. Luis Bates MD Course EKG Normal sinus rhythm, normal axis, no ST or T-segment changes Caprini VTE Risk Assessment Caprini VTE Risk Assessment: No/Low Risk (score <= 1) Caprini Risk Assessment Model Point Value = 1 Point Value = 2 Point Value = 3 Point Value = 5 Age 41-60 Minor surgery BMI > 25 kg/m2 Swollen legs Varicose veins or History of unexplained or recurrent spontaneous Oral contraceptives or hormone replacement Sepsis (< 1 month) Serious lung disease, including pneumonia (< 1 month) Abnormal pulmonary function Acute myocardial infarction Congestive heart failure (< 1 month) History of inflammatory bowel disease Medical patient at bed rest Age 61-74 Arthroscopic surgery Major open surgery (> 45 min) Laparoscopic surgery (> 45 min) Malignancy Confined to bed (> 72 hours) Immobilizing plaster cast Central venous access Age >= 75 History of VTE Family history of VTE Factor V Leiden Prothrombin [id number] Lupus anticoagulant Anticardiolipin antibodies Elevated serum homocysteine Heparin-induced thrombocytopenia Other congenital or acquired thrombophilia Stroke (< 1 month) Elective arthroplasty Hip, pelvis, or leg fracture Acute spinal cord injury (< 1 month) Prophylaxis Regimen Total Risk Factor Score Risk Level Prophylaxis Regimen 0-1 Low Early ambulation 2 Moderate Order ONE of the following: *Sequential Compression Device (SCD) *Heparin 5000 units SQ BID 3-4 Higher Order ONE of the following medications: *Heparin 5000 units SQ TID *Enoxaparin/Lovenox 40 mg SQ daily (WT < 150 kg, CrCl > 30 mL/min) *Enoxaparin/Lovenox 30 mg SQ daily (WT < 150 kg, CrCl > 10-29 mL/min) *Enoxaparin/Lovenox 30 mg SQ BID (WT < 150 kg, CrCl > 30 mL/min) AND/OR *Sequential Compression Device (SCD) 5 or more Highest Order ONE of the following medications: *Heparin 5000 units SQ TID (Preferred with Epidurals) *Enoxaparin/Lovenox 40 mg SQ daily (WT < 150 kg, CrCl > 30 mL/min) *Enoxaparin/Lovenox 30 mg SQ daily (WT < 150 kg, CrCl > 10-29 mL/min) *Enoxaparin/Lovenox 30 mg SQ BID (WT < 150 kg, CrCl > 30 mL/min) AND *Sequential Compression Device (SCD) Assessment and Plan Assessment and Plan #1 Atypical chest pain-admitted to chest pain center. Ruled out with 3 sets of EKGs, cardiac enzymes, and monitored overnight. Seen and evaluated by Dr. Alden Lee. Will proceed with chemical stress test. If unremarkable will later discharged this afternoon. Patient agreeable to plan of care. #2 Diabetes-hold oral glycemics at this time, after testing will reorder as appropriate. #3 GERD-continue omeprazole #4 Right shoulder sprain-CTA of right upper extremity unremarkable. No acute findings on exam. Painful with passive ROM. muscle strain and should improve with time. Toradol 30mg IV x1 dose. Encouraged to use warm heat to affected area and Aleve or Motrin PRN, instructed to take with food. Instructed to keep moving shoulder as able to avoid a frozen shoulder. Follow up with PCP if pain persists. Awaiting case management for possible readmittance with Dr. Mckenzie. #5 Migraine-when discussing discharge with patient, expresses her headache is now a migraine, requesting Imitrex. Imitrex 25mg po x1 dose before discharge. Case management consult placed for possible blue card. Angle Abreu Nov 15, 2016 08:33
[2016-11-15] MEDS ORDERED: ASPIRIN 325 MG TAB PO SCH ×2 (09:00)
[2016-11-15] MEDS ORDERED: REGADENOSON INJ 0.4 MG/5 ML SYR ONE (10:57)
--- NOTE | 2016-11-15 11:56 | RADRPT ---
EXAM DATE/TIME: 11/15/2016 10:21 [facility] COMPARISON: MYOCARDIAL PERF PHARM SPECT, GATED W/EF, November 23, 2014, 9:24. INDICATIONS : Right chest pain radiating to right arm. Atrial fibrillation. Coronary artery disease. DOSE: 25.9 mCi Tc99m Myoview at stress. 8.2 mCi Tc99m Myoview at rest. 0.4 mg Lexiscan STRESS SYMPTOMS: None. EJECTION FRACTION: > 70% MEDICAL HISTORY : Hypertension. SURGICAL HISTORY : Hysterectomy. Tubal ligation. Coronary artery stent. ENCOUNTER: Initial ACUITY: 1 day PAIN SCALE: 8/10 LOCATION: Right chest TECHNIQUE: The patient underwent pharmacologic stress with infusion of prescribed dose. Continuous ECG tracing was monitored during stress. Gated SPECT imaging was performed after stress and conventional SPECT i maging was performed at rest. The examination was performed on a SPECT/CT scanner, both attenuation and non-corrected datasets were reviewed. FINDINGS: DISTRIBUTION: The maximum perfused segment at stress is in the lateral wall. PERFUSION STUDY: The pattern of perfusion at stress is within normal limits. GATED STUDY: There is intact wall motion and thickening without hypokinetic or dyskinetic segments. CONCLUSION: Within normal limits. No significant stress-induced ischemia demonstrated. Normal wall motion. RISK CATEGORY: Low Luis Bates MD on November 15, 2016 at 11:52 Board Certified Radiologist. This report was verified electronically.
[2016-11-15] MEDS ORDERED: METF500T PO (12:44)
--- NOTE | 2016-11-15 12:44 | HHI.DCPOC ---
Discharge Care Plan Diagnosis: (1) Atypical chest pain (2) Musculoskeletal strain (3) Migraines (4) DM (diabetes mellitus) (5) GERD (gastroesophageal reflux disease) Goals to Promote Your Health * To prevent worsening of your condition and complications * To maintain your health at the optimal level Directions to Meet Your Goals Take your medications as prescribed Follow your dietary instruction Follow activity as directed Keep your appointments as scheduled Take your immunizations and boosters as scheduled If your symptoms worsen call your PCP, if no PCP go to Urgent Care Center or Emergency Room Smoking is Dangerous to Your Health. Avoid second hand smoke Call the 24-hour hour crisis hotline for domestic abuse at Angle Abreu Nov 15, 2016 12:44
[2016-11-15] MEDS ORDERED: GLIP5TAB8 PO (12:45)
[2016-11-15] MEDS ORDERED: PANTOPRAZOLE SOD 40 MG DELAYED RELEASE TAB PO SCH (13:00)
[2016-11-15] MEDS ORDERED: metFORMIN HCL 500 MG TAB PO SCH (13:00)
[2016-11-15] MEDS ORDERED: KETOROLAC TROMETHAMINE 30 MG/ML (IVP) VIAL IV PUSH ONE (13:00)
[2016-11-15] MEDS ORDERED: SUMAtriptan SUCCINATE 25 MG TAB PO ONE (13:45)
[2016-11-15] MEDS ORDERED: glipiZIDE 5 MG TAB PO SCH (16:00)
[2016-11-16] MEDS ORDERED: PNEUMOCOCCAL POLYVALENT INJ 25 MCG/0.5 ML SYR IM ONE (10:00)
[2016-11-16] MEDS ORDERED: INFLUENZA VIRUS VACCINE (QUADRIVALENT) 0.5 ML SYR IM ONE (10:00)
--- NOTE | 2016-11-17 11:09 | EKG ---
Date Performed: 11/15/2016 Time Performed: 02:48:16 PTAGE: 51 years EKG: Sinus rhythm NORMAL ECG PREVIOUS TRACING : 11/14/2016 19.51 Since previous tracing, no significant change noted DOCTOR: Alden Lee Interpretating Date/Time 11/17/2016 11:08:27
--- NOTE | 2016-11-17 11:10 | EKG ---
Date Performed: 11/14/2016 Time Performed: 19:51:13 PTAGE: 51 years EKG: Sinus rhythm NORMAL ECG PREVIOUS TRACING : 02/16/2016 21.36 Since previous tracing, no significant change noted DOCTOR: Alden Lee Interpretating Date/Time 11/17/2016 11:10:09
--- NOTE | 2016-11-17 11:10 | EKG ---
Date Performed: 11/14/2016 Time Performed: 22:58:08 PTAGE: 51 years EKG: Sinus rhythm NORMAL ECG INTERPRETATION BASED ON A DEFAULT AGE OF 41 YEARS NO PREVIOUS TRACING DOCTOR: Alden Lee Interpretating Date/Time 11/17/2016 11:09:06
--- NOTE | 2016-11-17 12:13 | TR ---
Date Performed: 11/15/2016 Time Performed: 11:07:42 DOCTOR: Alden Lee DRUG LIST: CLINICAL HISTORY: ANGINA REASON FOR TEST: REASON FOR ENDING: OBSERVATION: CONCLUSION: Lexiscan stress test was performed under standard four minute protocol. Radionuclid e was injected one minute prior to ending the test. No electrocardiographic abormalities were present to suggest ischemia. Nuclear imaging and interpretation are pending. COMMENTS:
[2016-12-09] MEDS ORDERED: METF500T PO (14:47)
[2016-12-09] MEDS ORDERED: BAYETES (14:47)
[2016-12-09] MEDS ORDERED: OMEP40CA2 PO (14:47)
[2016-12-09] MEDS ORDERED: GLIP5TAB8 PO (14:47)
== END 2016-11-15 15:21 | disposition home or self-care (01) ==
LOC: NEPE 17:34 → NEDA 22:07 → NEPFCDU 23:17
PROVIDERS: ADMIT Internal Medicine Cardiovascular Disease; ATTEND Internal Medicine Cardiovascular Disease
DX: R07.89 Other chest pain (principal); S43.401A Unspecified sprain of right shoulder joint, initial encounter; R06.02 Shortness of breath; M79.601 Pain in right arm; I25.119 Atherosclerotic heart disease of native coronary artery with unspecified angina pectoris; I10 Essential (primary) hypertension; I74.8 Embolism and thrombosis of other arteries; E10.9 Type 1 diabetes mellitus without complications; K21.9 Gastro-esophageal reflux disease without esophagitis; J45.909 Unspecified asthma, uncomplicated; G43.909 Migraine, unspecified, not intractable, without status migrainosus; Z95.5 Presence of coronary angioplasty implant and graft; Z79.899 Other long term (current) drug therapy; Z79.84 Long term (current) use of oral hypoglycemic drugs; Z79.82 Long term (current) use of aspirin
CPT/HCPCS: 71010; 73206; 78452; 80053; 82550; 82948; 83735; 84484; 85025; 85610; 85730; 93005; 93017; 96361; 96374; 96375; 96376; 99285; A9502; G0378; J1885; J2270; J2405; J2785; J7040; Q9967

== ENCOUNTER 2017-02-12 14:03 | Inpatient (IN) | payer SELFPAY ==
[~2017-02-12] VITALS: Ht 162.6 cm; Wt 115.4 kg
[2017-02-12] VITALS (8 sets, daily range): BP systolic 76–161; BP diastolic 47–118; PULSE 69–119; RESP 16–20; TEMP 98.3–102.8; O2SAT 93–96
[~2017-02-12 14:03] MED LIST changes: -AZIT500T2 PO; +BAYETES; -DIFL150T PO
[2017-02-12] MEDS ORDERED: KETOROLAC TROMETHAMINE 30 MG/ML (IVP) VIAL IV PUSH ONE (14:30)
[2017-02-12] MEDS ORDERED: SODIUM CHLOR 0.9% 1000 ML INJ 1,000 ML IV ONE ×4 (14:30→23:00)
[2017-02-12] MEDS ORDERED: PROCHLORPERAZINE INJ 10 MG/2 ML VIAL IV PUSH ONE (14:30)
[2017-02-12] MEDS ORDERED: diphenhydrAMINE HCL 50 MG/ML VIAL IV PUSH ONE ×2 (14:30→17:30)
[2017-02-12] MEDS ORDERED: SODIUM CHLORIDE 0.9% FLUSH 10 ML FLUSH IVF PRN (14:30)
--- NOTE | 2017-02-12 14:36 | PD ---
HPI Chief Complaint: GI Complaint Time Seen by Provider: 14:13 Travel History International Travel<30 days: No Contact w/Intl Traveler<30days: No Traveled to known affect area: No History of Present Illness HPI 51-year-old female presents to the emergency department for evaluation of nausea and vomiting for 4 hours. She also reports approximately 4 episodes of diarrhea. No blood in her stool. She states she has vomited "60 times". Patient is noted to have a temperature of 102.8 upon arrival. She states she is unsure when she started running a fever, but had chills for a few days. Patient reports a migraine headache which is typical of her migraine headaches. She denies any chest pain or shortness of breath. She denies any abdominal pain. She does report some urinary symptoms. Patient was given Zofran by EMS which has helped her nausea. Severity is moderate. No exacerbating or alleviating factors. PFSH Past Medical History Hx Anticoagulant Therapy: Yes (asa) Asthma: No Autoimmune Disease: No Blood Disorders: No Anxiety: Yes Depression: Yes Heart Rhythm Problems: Yes (INTERMITTENT A-FIB) Cancer: No Cardiac Catheterization: Yes Cardiovascular Problems: No High Cholesterol: No Chemotherapy: No Chest Pain: Yes Congestive Heart Failure: No COPD: No Diabetes: Yes Patient Takes Glucophage: Yes Diminished Hearing: No Endocrine: No Gastrointestinal Disorders: Yes (gerd) GERD: Yes Genitourinary: Yes (RECURRENT UPPER UTI) Headaches: Yes Hypertension: No Immune Disorder: No Implanted Vascular Access Dvce: No Kidney Stones: Yes Musculoskeletal: No Neurologic: No Psychiatric: No Reproductive: No Respiratory: No Immunizations Current: No Migraines: Yes Myocardial Infarction: No Radiation Therapy: No Sleep Apnea: No Thyroid Disease: No Ulcer: No ?: Not Menopausal: Yes : 3 Para: 3 Tubal Ligation: Yes Past Surgical History Abdominal Surgery: Yes (EXPLORATORY FOR A MASS IN ABDOMEN) Cardiac Surgery: Yes (CATH, NO STENT. ARTERY OCCLUSION IN RIGHT FOREARM) Section: No Coronary Artery Bypass Graft: Yes Ear Surgery: No Endocrine Surgery: No Eye Surgery: No Genitourinary Surgery: No Gynecologic Surgery: Yes (OOPHERECTOMY 1998) Hysterectomy: Yes Neurologic Surgery: No Oral Surgery: No Thoracic Surgery: No Other Surgery: Yes (TUBAL LIGATION 1990) Social History Alcohol Use: No Tobacco Use: No Substance Use: No Allergies-Medications (Allergen,Severity, Reaction): Coded Allergies: chocolate flavor (Unverified Allergy, Severe, Anaphylaxis, 02/12/17) Chocolate vancomycin (Unverified Allergy, Severe, ITCH AND FEELS HOT STS LIKE RED MAN SYNDROME, 02/12/17) Reported Meds & Prescriptions Reported Meds & Active Scripts Active Oli Contour Blood Glucose Strips (Blood Glucose Test Strips) Strip Strip 1 Strip .ROUTE BID Glipizide 5 Mg Tab 5 Mg PO BIDAC Take 30 minutes before a meal Metformin (Metformin HCl) 500 Mg Tab 500 Mg PO BID With meals Omeprazole 40 Mg Cap 40 Mg PO DAILY Review of Systems Except as stated in HPI: all other systems reviewed are Neg Physical Exam Narrative GENERAL: Well-nourished, well-developed female patient, temperature of 102.8. SKIN: Focused skin assessment warm/dry. HEAD: Normocephalic. Atraumatic. ENT: Mucosa pink and moist. No erythema or exudates. No uvular edema. No uvular , palatal, or tonsillar deviation. Airway patent. Nasal turbinates appear normal without nasal blood, purulent drainage or septal hematoma. EYES: No scleral icterus. No injection or drainage. NECK: Supple, trachea midline. No JVD or lymphadenopathy. CARDIOVASCULAR: Regular rate and rhythm without murmurs, gallops, or rubs. RESPIRATORY: Breath sounds equal bilaterally. No accessory muscle use. Lungs sounds diminished throughout. GASTROINTESTINAL: Abdomen soft, non-tender, nondistended. No abdominal tenderness to palpation. MUSCULOSKELETAL: No cyanosis, or edema. BACK: Nontender without obvious deformity. No CVA tenderness. Data Data Last Documented VS Vital Signs Date Time Temp Pulse Resp B/P (MAP) Pulse Ox O2 Delivery O2 Flow Rate FiO2 02/12/17 15:26 106 17 128/65 (86) 96 Nasal Cannula 2.00 02/12/17 15:00 102.8 Orders Orders Complete Blood Count With Diff (02/12/17 14:18) Comprehensive Metabolic Panel (02/12/17 14:18) Influenzae A/B Antigen (02/12/17 14:18) Chest, Single Ap (02/12/17 14:18) Oximetry (02/12/17 14:18) Sodium Chloride 0.9% Flush (Ns Flush) (02/12/17 14:30) Sepsis Workup Initiated (02/12/17 ) Prothrombin Time / Inr (Pt) (02/12/17 14:18) Act Partial Throm Time (Ptt) (02/12/17 14:18) Lactic Acid Sepsis Protocol (02/12/17 14:18) Magnesium (Mg) (02/12/17 14:18) Lipase (02/12/17 14:18) Urinalysis - C+S If Indicated (02/12/17 14:18) Blood Culture (02/12/17 14:18) Blood Glucose (02/12/17 14:18) Ecg Monitoring (02/12/17 14:18) Iv Access Insert/Monitor (02/12/17 14:18) Oxygen Administration (02/12/17 14:18) Sodium Chlor 0.9% 1000 Ml Inj (Ns 1000 M (02/12/17 14:30) Sodium Chlor 0.9% 1000 Ml Inj (Ns 1000 M (02/12/17 14:30) Ketorolac Inj (Toradol Inj) (02/12/17 14:30) Prochlorperazine Inj (Compazine Inj) (02/12/17 14:30) Diphenhydramine Inj (Benadryl Inj) (02/12/17 14:30) Vascular Access Team Consult/P PRN (02/12/17 15:24) Vascular Poc Ultrasound (02/12/17 ) Sodium Chlor 0.9% 1000 Ml Inj (Ns 1000 M (02/12/17 15:30) Urine Culture (02/12/17 15:25) Ct Abd/Pel W Iv Contrast(Rout) (02/12/17 ) Iohexol 350 Inj (Omnipaque 350 Inj) (02/12/17 16:52) Piperacil-Tazo 3.375 Gm Premix (Zosyn 3. (02/12/17 17:30) Vancomycin Inj (Vancomycin Inj) (02/12/17 17:30) Diphenhydramine Inj (Benadryl Inj) (02/12/17 17:30) Admit Order (Ed Use Only) (02/12/17 17:44) Labs Laboratory Tests Test 02/12/17 14:20 02/12/17 14:35 02/12/17 15:25 02/12/17 15:50 White Blood Count 12.3 TH/MM3 Red Blood Count 5.27 MIL/MM3 Hemoglobin 15.4 GM/DL Hematocrit 43.9 % Mean Corpuscular Volume 83.4 FL Mean Corpuscular Hemoglobin 29.3 PG Mean Corpuscular Hemoglobin Concent 35.1 % Red Cell Distribution Width 12.9 % Platelet Count 235 TH/MM3 Mean Platelet Volume 8.3 FL Neutrophils (%) (Auto) 92.3 % Lymphocytes (%) (Auto) 6.1 % Monocytes (%) (Auto) 1.1 % Eosinophils (%) (Auto) 0.4 % Basophils (%) (Auto) 0.1 % Neutrophils # (Auto) 11.4 TH/MM3 Lymphocytes # (Auto) 0.8 TH/MM3 Monocytes # (Auto) 0.1 TH/MM3 Eosinophils # (Auto) 0.0 TH/MM3 Basophils # (Auto) 0.0 TH/MM3 CBC Comment DIFF FINAL Differential Comment Blood Urea Nitrogen 13 MG/DL Creatinine 0.96 MG/DL Random Glucose 288 MG/DL Total Protein 7.1 GM/DL Albumin 3.3 GM/DL Calcium Level 8.9 MG/DL Magnesium Level 1.3 MG/DL Alkaline Phosphatase 167 U/L Aspartate Amino Transf (AST/SGOT) 55 U/L Alanine Aminotransferase (ALT/SGPT) 63 U/L Total Bilirubin 0.7 MG/DL Sodium Level 135 MEQ/L Potassium Level 3.7 MEQ/L Chloride Level 101 MEQ/L Carbon Dioxide Level 23.2 MEQ/L Anion Gap 11 MEQ/L Estimat Glomerular Filtration Rate 62 ML/MIN Lipase 207 U/L Lactic Acid Level 4.1 mmol/L Urine Color YELLOW Urine Turbidity CLEAR Urine pH 5.0 Urine Specific [place] 1.012 Urine Protein NEG mg/dL Urine Glucose (UA) 300 mg/dL Urine Ketones TRACE mg/dL Urine Occult Blood NEG Urine Nitrite NEG Urine Bilirubin NEG Urine Urobilinogen LESS THAN 2.0 MG/DL Urine Leukocyte Esterase TRACE Urine RBC 1 /hpf Urine WBC 3 /hpf Urine Squamous Epithelial Cells 1 /hpf Urine Amorphous Sediment RARE Urine Bacteria RARE /hpf Urine Mucus FEW /lpf Microscopic Urinalysis Comment CATH-CULTURE IND Prothrombin Time 12.0 SEC Prothromb Time International Ratio 1.1 RATIO Activated Partial Thromboplast Time 23.8 SEC Test 02/12/17 17:18 MDM Medical Decision Making Medical Screen Exam Complete: Yes Emergency Medical Condition: Yes Medical Record Reviewed: Yes Interpretation(s) Last Impressions Chest X-Ray 02/12/17 1418 Signed Impressions: Service Date/Time: January 14:32 - CONCLUSION: The lungs are clear. Dragan Brenner MD Abdomen/Pelvis CT 02/12/17 0000 Signed Impressions: Service Date/Time: , February 12, 2017 16:41 - CONCLUSION: 1. No acute findings. Postoperative hysterectomy. Fatty liver. Basilar atelectasis in the lungs. Jung Coppola MD Differential Diagnosis UTI versus pyelonephritis versus pneumonia versus influenza versus viral syndrome versus sepsis Narrative Course 51-year-old female presents to the emergency department for evaluation nausea vomiting for 4 hours. She is also noted to have a temperature of 102.8. IV access established. CBC, CMP, lactic acid, magnesium, lipase, PTT, PT/INR, UA, blood cultures 2, and influenza are ordered and pending. Chest x-ray is ordered and pending. Patient is given normal saline IV bolus 3, Toradol 30 mg IV, Compazine 10 mg IV, Benadryl 25 mg IV. CBC shows leukocytosis of 12.3. CMP shows slightly elevated liver enzymes with AST 55, ALT 63. Lactic acid is 4.1. Magnesium is 1.3. Lipase is 207. UA shows trace leukocyte esterase, rare bacteria. Influenza is negative. Chest x- ray shows the lungs are clear. CT abdomen/pelvis with IV contrast is ordered to rule out colitis, etc. CT abdomen/pelvis shows no acute findings. Patient meets sepsis criteria. Patient states that she can take vancomycin along or she gets Benadryl with it as it causes itching. Patient is started on vancomycin and Zosyn. She is given Benadryl with the vancomycin. [facility] is paged for admission. Dr. Logan accepted admission. Sepsis Criteria SIRS Criteria (2 or more): Temp > 100.9 or < 96.8, Heart rate over 90, WBC > 01487, < 4000 or > 10% bands Diagnosis Primary Impression: Sepsis Qualified Codes: A41.9 - Sepsis, unspecified organism Admitting Information Admitting Physician Requests: Admit CadenWendy Feb 12, 2017 14:36
--- NOTE | 2017-02-12 14:45 | RADRPT ---
EXAM DATE/TIME: 02/12/2017 14:32 [facility] COMPARISON: CHEST SINGLE AP, November 14, 2016, 20:48. INDICATIONS : Fever. MEDICAL HISTORY : Hypertension. SURGICAL HISTORY : Hysterectomy. Tubal ligation. Coronary artery stent ENCOUNTER: Initial ACUITY: 1 day PAIN SCORE: 3/10 LOCATION: Bilateral chest FINDINGS: A single view of the chest demonstrates the lungs to be symmetrically aerated without evidence of mas s, infiltrate or effusion. The cardiomediastinal contours are unremarkable. Osseous structures are intact. CONCLUSION: The lungs are clear. Dragan Brenner MD on February 12, 2017 at 14:43 Board Certified Radiologist. This report was verified electronically.
[2017-02-12 15:03] LABS: AUTOMATED NEUTROPHIL # 11.4 TH/MM3 (1.8-7.7); BASOPHIL % 0.1 % (0.0-2.0); EOSINOPHIL % 0.4 % (0.0-4.0); HEMATOCRIT 43.9 % (35.0-46.0); HEMO FLAGS DIFF FINAL; LYMPH % 6.1 % (9.0-44.0); LYMPHOCYTE # 0.8 TH/MM3 (1.0-4.8); MEAN CELL VOLUME 83.4 FL (80.0-100.0); MEAN CORPUSCULAR HEMOGLOBIN 29.3 PG (27.0-34.0); MEAN CORPUSCULAR HGB CONC 35.1 % (32.0-36.0); MONO % 1.1 % (0.0-8.0); NEUT % 92.3 % (16.0-70.0); PLATELET COUNT 235 TH/MM3 (150-450); RED BLOOD COUNT 5.27 MIL/MM3 (4.00-5.30); RED CELL DISTRIBUTION WIDTH 12.9 % (11.6-17.2); WHITE BLOOD COUNT 12.3 TH/MM3 (4.0-11.0)
[2017-02-12 15:27] LABS: ALKALINE PHOSPHATASE 167 U/L (45-117); TOTAL BILIRUBIN ADULT 0.7 MG/DL (0.2-1.0)
[2017-02-12 15:28] LABS: ALT (GPT) 63 U/L (10-53); ANION GAP 11 MEQ/L (5-15); AST (GOT) 55 U/L (15-37); BICARBONATE 23.2 MEQ/L (21.0-32.0); BLOOD UREA NITROGEN 13 MG/DL (7-18); CHLORIDE 101 MEQ/L (98-107); GLOMERULAR FILTRATION RATE 62 ML/MIN (>89); MAGNESIUM 1.3 MG/DL (1.5-2.5); SODIUM (NA) 135 MEQ/L (136-145)
[2017-02-12 15:32] LABS: POTASSIUM 3.7 MEQ/L (3.5-5.1)
[2017-02-12 15:50] LABS: BACTERIA, URINE RARE /hpf; BLOOD, URINE NEG (NEG); GLUCOSE,URINE 300 mg/dL (NEG); KETONE, URINE TRACE mg/dL (NEG); MUCUS URINE FEW /lpf (OCC); NITRITE,URINE NEG (NEG); SQUAMOUS EPITHELIAL CELL URINE 1 /hpf (0-5); URINE COLOR YELLOW (YELLW/STRAW)
[2017-02-12 15:51] LABS: COMMENT (UR) CATH-CULTURE IND; CULTURE IF INDICATED CATH CULTURE IND
--- NOTE | 2017-02-12 15:54 | PD ---
Physical Exam Date Seen by Provider: Feb 12, 2017 Time Seen by Provider: 15:45 Narrative Patient presented with subjective fevers so sedated with vomiting and diarrhea Data Data Last Documented VS Vital Signs Date Time Temp Pulse Resp B/P (MAP) Pulse Ox O2 Delivery O2 Flow Rate FiO2 02/12/17 15:26 106 17 128/65 (86) 96 Nasal Cannula 2.00 02/12/17 15:00 102.8 Orders Orders Complete Blood Count With Diff (02/12/17 14:18) Comprehensive Metabolic Panel (02/12/17 14:18) Influenzae A/B Antigen (02/12/17 14:18) Chest, Single Ap (02/12/17 14:18) Oximetry (02/12/17 14:18) Sodium Chloride 0.9% Flush (Ns Flush) (02/12/17 14:30) Sepsis Workup Initiated (02/12/17 ) Prothrombin Time / Inr (Pt) (02/12/17 14:18) Act Partial Throm Time (Ptt) (02/12/17 14:18) Lactic Acid Sepsis Protocol (02/12/17 14:18) Magnesium (Mg) (02/12/17 14:18) Lipase (02/12/17 14:18) Urinalysis - C+S If Indicated (02/12/17 14:18) Blood Culture (02/12/17 14:18) Blood Glucose (02/12/17 14:18) Ecg Monitoring (02/12/17 14:18) Iv Access Insert/Monitor (02/12/17 14:18) Oxygen Administration (02/12/17 14:18) Sodium Chlor 0.9% 1000 Ml Inj (Ns 1000 M (02/12/17 14:30) Sodium Chlor 0.9% 1000 Ml Inj (Ns 1000 M (02/12/17 14:30) Ketorolac Inj (Toradol Inj) (02/12/17 14:30) Prochlorperazine Inj (Compazine Inj) (02/12/17 14:30) Diphenhydramine Inj (Benadryl Inj) (02/12/17 14:30) Vascular Access Team Consult/P PRN (02/12/17 15:24) Vascular Poc Ultrasound (02/12/17 ) Sodium Chlor 0.9% 1000 Ml Inj (Ns 1000 M (02/12/17 15:30) Urine Culture (02/12/17 15:25) Labs Laboratory Tests Test 02/12/17 14:20 02/12/17 14:35 02/12/17 15:25 White Blood Count 12.3 TH/MM3 Red Blood Count 5.27 MIL/MM3 Hemoglobin 15.4 GM/DL Hematocrit 43.9 % Mean Corpuscular Volume 83.4 FL Mean Corpuscular Hemoglobin 29.3 PG Mean Corpuscular Hemoglobin Concent 35.1 % Red Cell Distribution Width 12.9 % Platelet Count 235 TH/MM3 Mean Platelet Volume 8.3 FL Neutrophils (%) (Auto) 92.3 % Lymphocytes (%) (Auto) 6.1 % Monocytes (%) (Auto) 1.1 % Eosinophils (%) (Auto) 0.4 % Basophils (%) (Auto) 0.1 % Neutrophils # (Auto) 11.4 TH/MM3 Lymphocytes # (Auto) 0.8 TH/MM3 Monocytes # (Auto) 0.1 TH/MM3 Eosinophils # (Auto) 0.0 TH/MM3 Basophils # (Auto) 0.0 TH/MM3 CBC Comment DIFF FINAL Differential Comment Blood Urea Nitrogen 13 MG/DL Creatinine 0.96 MG/DL Random Glucose 288 MG/DL Total Protein 7.1 GM/DL Albumin 3.3 GM/DL Calcium Level 8.9 MG/DL Magnesium Level 1.3 MG/DL Alkaline Phosphatase 167 U/L Aspartate Amino Transf (AST/SGOT) 55 U/L Alanine Aminotransferase (ALT/SGPT) 63 U/L Total Bilirubin 0.7 MG/DL Sodium Level 135 MEQ/L Potassium Level 3.7 MEQ/L Chloride Level 101 MEQ/L Carbon Dioxide Level 23.2 MEQ/L Anion Gap 11 MEQ/L Estimat Glomerular Filtration Rate 62 ML/MIN Lipase 207 U/L Lactic Acid Level 4.1 mmol/L Urine Color YELLOW Urine Turbidity CLEAR Urine pH 5.0 Urine Specific [place] 1.012 Urine Protein NEG mg/dL Urine Glucose (UA) 300 mg/dL Urine Ketones TRACE mg/dL Urine Occult Blood NEG Urine Nitrite NEG Urine Bilirubin NEG Urine Urobilinogen LESS THAN 2.0 MG/DL Urine Leukocyte Esterase TRACE Urine RBC 1 /hpf Urine WBC 3 /hpf Urine Squamous Epithelial Cells 1 /hpf Urine Amorphous Sediment RARE Urine Bacteria RARE /hpf Urine Mucus FEW /lpf Microscopic Urinalysis Comment CATH-CULTURE IND MDM Supervised Visit with ARTURO: Yes Narrative Course I, Dr. Hamilton, have reviewed the advance practice practitioner's documentation and am in agreement, met with the patient face to face, made the diagnosis, and the medical decision making was done by me. *My assessment and Findings: This patient meets septic criteria. No obvious source for her symptoms based upon the lab studies done most part. CT of her abdomen and pelvis will be done to rule out colitis, etc. Please see Wendy Negrete NP's note for laboratory and radiology results, final diagnosis and disposition Ruthy Hamilton MD Feb 12, 2017 15:54
[2017-02-12 16:15] LABS: INTERNATIONAL NORMALIZED RATIO 1.1 RATIO
[2017-02-12 16:17] LABS: APTT (PATIENT) 23.8 SEC (24.3-30.1)
[2017-02-12] MEDS ORDERED: IOHEXOL 350 MG/ML 10 ML VIAL (for RAD DIAG) IVCONTRAST ONE (16:52)
[2017-02-12 16:58] LABS: LACTIC ACID GHOST NOT REPORTABLE
--- NOTE | 2017-02-12 17:06 | RADRPT ---
EXAM DATE/TIME: 02/12/2017 16:41 [facility] COMPARISON: CT ABDOMEN & PELVIS W/O CONTRAST, September 28, 2015, 21:29. CTA CARDIAC W/IV CONTRAST,CORONARY ARTERIES W/3D, November 23, 2014, 14:03. INDICATIONS : Abdomen pain. IV CONTRAST: 100 cc Omnipaque 350 (iohexol) IV ORAL CONTRAST: No oral contrast ingested. RADIATION DOSE: 16.28 CTDIvol (mGy) ; Patient body habitus MEDICAL HISTORY : Cardiovascular disease. SURGICAL HISTORY : Hysterectomy. ENCOUNTER: Initial ACUITY: 1 day PAIN SCALE: 4/10 LOCATION: Bilateral abdomen TECHNIQUE: Volumetric scanning of the abdomen and pelvis was performed. Using automated exposure control and ad justment of the mA and/or kV according to patient size, radiation dose was kept as low as reasonably achievable to obtain optimal diagnostic quality images. DICOM format image data is available electro nically for review and comparison. FINDINGS: There is dependent atelectasis at the lung bases. Diffuse mild fatty liver. Spleen, adrenals, kidneys and pancreas demonstrate no acute findings. No free fluid. No bowel obstruction. No adenopathy. Bladder unremarkable. No acute bony abnormalities . CONCLUSION: 1. No acute findings. Postoperative hysterectomy. Fatty liver. Basilar atelectasis in the lungs. Jung Coppola MD on February 12, 2017 at 17:00 Board Certified Radiologist. This report was verified electronically.
[2017-02-12] MEDS ORDERED: VANCOMYCIN INJ 1,000 MG in SODIUM CHLOR 0.9% 250 ML INJ 250 ML IV ONE (17:30)
[2017-02-12] MEDS ORDERED: PIPERACIL-TAZO 3.375 GM PREMIX 50 ML IV ONE (17:30)
--- NOTE | 2017-02-12 17:57 | HHI.HP ---
[facility] No Primary Care Physician Admission Diagnosis sepsis without source Diagnoses: Chief Complaint: Nausea and vomiting. Travel History International Travel<30 Days: No Contact w/Intl Traveler <30 Da: No Traveled to Known Affected Are: No History of Present Illness This is a 51-year-old female with history of atrial fibrillation and diabetes presenting with nausea and nonbilious, nonbloody psot-prandial vomiting for the last couple of days, associated with one loose watery bowel movement which started today, nonbloody, nonmucoid. No associated abdominal pain. Patient also started having subjective fever with chills. Patient denies any headache, neck pain, chest pain, shortness of breath, cough, rash, urinary symptoms like dysuria, frequency or urgency. There is also no open wound, denies IV drug use or recent antibiotic use. Review of Systems ROS Limitations: Other (All other pertinent systems were reviewed and are negative.) Past Family Social History Past Medical History DM Afib Migraines Heart murmur GERD Past Surgical History Hysterectomy Reported Medications Design Clinicals Contour Blood Glucose Strips (Blood Glucose Test Strips) Strip Strip 1 Strip .ROUTE BID Glipizide 5 Mg Tab 5 Mg PO BIDAC Take 30 minutes before a meal Metformin (Metformin HCl) 500 Mg Tab 500 Mg PO BID With meals Omeprazole 40 Mg Cap 40 Mg PO DAILY Allergies: Coded Allergies: chocolate flavor (Unverified Allergy, Severe, Anaphylaxis, 02/12/17) Chocolate vancomycin (Unverified Allergy, Severe, ITCH AND FEELS HOT STS LIKE RED MAN SYNDROME, 02/12/17) Family History Dad has both HTN and DM Social History Patient denies smoking, significant alcohol intake or use of any illicit drugs. Physical Exam Vital Signs Vital Signs Date Time Temp Pulse Resp B/P (MAP) Pulse Ox O2 Delivery O2 Flow Rate FiO2 02/12/17 17:52 99.4 02/12/17 15:26 106 17 128/65 (86) 96 Nasal Cannula 2.00 02/12/17 15:00 102.8 02/12/17 14:07 119 16 161/118 (132) 93 Physical Exam Not in distress, well-nourished, looks stated age PERRL, pink conjunctiva without injection, anicteric Nose without bleeding, airway patent, oropharynx clear Supple neck, no masses or thyromegaly, trachea midline Normal rate and regular rhythm, no murmurs gallops or rubs appreciated. Clear to auscultation and symmetric bilaterally, normal respiratory effort. Normal bowel sounds, soft, non-tender, nondistended, no guarding. Obese. Extremities without clubbing, cyanosis, or edema. No rash of generalized distribution. Skin is warm and dry. AAO x3, no cranial nerve deficits, moves all 4 extremities, no focal neurologic deficits, negative for meningeal signs, negative Kernig's and Brudzinski. Laboratory Laboratory Tests Test 02/12/17 14:20 02/12/17 14:35 02/12/17 15:25 02/12/17 15:50 White Blood Count 12.3 Red Blood Count 5.27 Hemoglobin 15.4 Hematocrit 43.9 Mean Corpuscular Volume 83.4 Mean Corpuscular Hemoglobin 29.3 Mean Corpuscular Hemoglobin Concent 35.1 Red Cell Distribution Width 12.9 Platelet Count 235 Mean Platelet Volume 8.3 Neutrophils (%) (Auto) 92.3 Lymphocytes (%) (Auto) 6.1 Monocytes (%) (Auto) 1.1 Eosinophils (%) (Auto) 0.4 Basophils (%) (Auto) 0.1 Neutrophils # (Auto) 11.4 Lymphocytes # (Auto) 0.8 Monocytes # (Auto) 0.1 Eosinophils # (Auto) 0.0 Basophils # (Auto) 0.0 CBC Comment DIFF FINAL Differential Comment Blood Urea Nitrogen 13 Creatinine 0.96 Random Glucose 288 Total Protein 7.1 Albumin 3.3 Calcium Level 8.9 Magnesium Level 1.3 Alkaline Phosphatase 167 Aspartate Amino Transf (AST/SGOT) 55 Alanine Aminotransferase (ALT/SGPT) 63 Total Bilirubin 0.7 Sodium Level 135 Potassium Level 3.7 Chloride Level 101 Carbon Dioxide Level 23.2 Anion Gap 11 Estimat Glomerular Filtration Rate 62 Lipase 207 Lactic Acid Level 4.1 Urine Color YELLOW Urine Turbidity CLEAR Urine pH 5.0 Urine Specific [place] 1.012 Urine Protein NEG Urine Glucose (UA) 300 Urine Ketones TRACE Urine Occult Blood NEG Urine Nitrite NEG Urine Bilirubin NEG Urine Urobilinogen LESS THAN 2.0 Urine Leukocyte Esterase TRACE Urine RBC 1 Urine WBC 3 Urine Squamous Epithelial Cells 1 Urine Amorphous Sediment RARE Urine Bacteria RARE Urine Mucus FEW Microscopic Urinalysis Comment CATH-CULTURE IND Prothrombin Time 12.0 Prothromb Time International Ratio 1.1 Activated Partial Thromboplast Time 23.8 Test 02/12/17 17:18 Date/Time Source Procedure Growth Status 02/12/17 14:35 Blood Peripheral Aerobic Blood Culture Pending Received 02/12/17 14:35 Blood Peripheral Anaerobic Blood Culture Pending Received 02/12/17 14:34 Nasal Aspirate Influenza Types A,B Antigen (SELENE) - Final NEGATIVE FOR FLU A AND B ANTIGEN.... Complete 02/12/17 15:25 Urine Catheterized Urine Urine Culture Pending Received Result Diagram: 02/12/17 1420 02/12/17 1420 Imaging Last Impressions Chest X-Ray 02/12/17 1418 Signed Impressions: Service Date/Time: January 14:32 - CONCLUSION: The lungs are clear. Dragan Brenner MD Abdomen/Pelvis CT 02/12/17 0000 Signed Impressions: Service Date/Time: January 16:41 - CONCLUSION: 1. No acute findings. Postoperative hysterectomy. Fatty liver. Basilar atelectasis in the lungs. Jung Coppola MD Caprini VTE Risk Assessment Caprini VTE Risk Assessment: Mod/High Risk (score >= 2) Caprini Risk Assessment Model Point Value = 1 Point Value = 2 Point Value = 3 Point Value = 5 Age 41-60 Minor surgery BMI > 25 kg/m2 Swollen legs Varicose veins or History of unexplained or recurrent spontaneous Oral contraceptives or hormone replacement Sepsis (< 1 month) Serious lung disease, including pneumonia (< 1 month) Abnormal pulmonary function Acute myocardial infarction Congestive heart failure (< 1 month) History of inflammatory bowel disease Medical patient at bed rest Age 61-74 Arthroscopic surgery Major open surgery (> 45 min) Laparoscopic surgery (> 45 min) Malignancy Confined to bed (> 72 hours) Immobilizing plaster cast Central venous access Age >= 75 History of VTE Family history of VTE Factor V Leiden Prothrombin [id number] Lupus anticoagulant Anticardiolipin antibodies Elevated serum homocysteine Heparin-induced thrombocytopenia Other congenital or acquired thrombophilia Stroke (< 1 month) Elective arthroplasty Hip, pelvis, or leg fracture Acute spinal cord injury (< 1 month) Prophylaxis Regimen Total Risk Factor Score Risk Level Prophylaxis Regimen 0-1 Low Early ambulation 2 Moderate Order ONE of the following: *Sequential Compression Device (SCD) *Heparin 5000 units SQ BID 3-4 Higher Order ONE of the following medications: *Heparin 5000 units SQ TID *Enoxaparin/Lovenox 40 mg SQ daily (WT < 150 kg, CrCl > 30 mL/min) *Enoxaparin/Lovenox 30 mg SQ daily (WT < 150 kg, CrCl > 10-29 mL/min) *Enoxaparin/Lovenox 30 mg SQ BID (WT < 150 kg, CrCl > 30 mL/min) AND/OR *Sequential Compression Device (SCD) 5 or more Highest Order ONE of the following medications: *Heparin 5000 units SQ TID (Preferred with Epidurals) *Enoxaparin/Lovenox 40 mg SQ daily (WT < 150 kg, CrCl > 30 mL/min) *Enoxaparin/Lovenox 30 mg SQ daily (WT < 150 kg, CrCl > 10-29 mL/min) *Enoxaparin/Lovenox 30 mg SQ BID (WT < 150 kg, CrCl > 30 mL/min) AND *Sequential Compression Device (SCD) Assessment and Plan Problem List: (1) DM (diabetes mellitus) ICD Code: E11.9 - Type 2 diabetes mellitus without complications Status: Chronic (2) Sepsis ICD Code: A41.9 - Sepsis, unspecified organism Status: Acute Assessment and Plan This is a 51-year-old female with history of atrial fibrillation and diabetes presenting with nausea and vomiting Sepsis, unknown etiology, likely secondary to gastroenteritis- sepsis based on fever, leukocytosis, tachycardia and lactic acidosis. Possible systemic Viral illness with LFT elevation. Chest x-ray reviewed personally, unremarkable. CT abdomen reviewed, unremarkable. No obvious etiology. Patient will ever had one episode of loose bowel movements today. Patient continues to have nausea and vomiting, treat symptomatically with Zofran. Check stool studies, recheck KUB tomorrow, continue vancomycin and Zosyn for now, recheck CBC and BMP in the morning. Status post 3 L of normal saline, will continue fluids, recheck lactic acid, follow-up blood culture and urine culture. Doubt meningitis, negative meningeal signs. Rapid flu negative. Diabetes mellitus type II - hold oral hypoglycemic agents, monitor BGs/ accuchecks ACHS, administer insulin via sliding scale Atrial fibrillation-currently in sinus rhythm, check EKG, keep on telemetry. Hypomagnesemia-replaced Mild LFT elevation-could be a Viral illness adenovirus, recheck LFTs tomorrow. DVT prophylaxis: Lovenox Physician Certification 2 Midnight Certification Type: Admission for Inpatient Services Order for Inpatient Services The services are ordered in accordance with Medicare regulations or non- Medicare payer requirements, as applicable. In the case of services not specified as inpatient-only, they are appropriately provided as inpatient services in accordance with the 2-midnight benchmark. Estimated LOS (days): 2 days is the estimated time the patient will need to remain in the hospital, assuming treatment plan goals are met and no additional complications. Post-Hospital Plan: Home Problem Qualifiers (1) Sepsis: Qualified Codes: A41.9 - Sepsis, unspecified organism Afshan Logan MD Feb 12, 2017 17:57
[2017-02-12] MEDS ORDERED: GLUCAGON 1 MG/ML VIAL OTHER PRN (18:45)
[2017-02-12] MEDS ORDERED: Vancomycin Consult Pharmacy 1 EA OTHER SCH (18:45)
[2017-02-12] MEDS ORDERED: DEXTROSE 50% IN WATER 50 ML VIAL(D50) IV PUSH PRN (18:45)
[2017-02-12] MEDS ORDERED: SODIUM CHLORIDE 0.9% FLUSH 10 ML FLUSH IV FLUSH PRN (18:45)
[2017-02-12] MEDS ORDERED: ONDANSETRON HCL 4 MG/2 ML VIAL IVP PRN (18:45)
[2017-02-12] MEDS ORDERED: NALOXONE HCL 0.4 MG/ML AMP IV PUSH PRN (18:45)
[2017-02-12] MEDS ORDERED: PIPERACIL-TAZO 3.375 GM PREMIX 50 ML IV SCH (19:00)
[2017-02-12] MEDS: ENOXAPARIN SODIUM 30 MG/0.3 ML SYRINGE SQ SCH (19:23)
[2017-02-12] MEDS: D5-1/2 NS + KCL 20 MEQ INJ 1,000 ML IV SCH ×2 (19:57→22:09)
[2017-02-12] MEDS ORDERED: VANCOMYCIN 1,000 MG/NS 250 ML IV ONE ×2 (20:00)
[2017-02-12] MEDS: MAGNESIUM SULFATE 1 GM PREMIX 100 ML IV SCH ×2 (20:03→21:46)
[2017-02-12] MEDS: SODIUM CHLORIDE 0.9% FLUSH 10 ML FLUSH IV FLUSH SCH (21:00)
[2017-02-12] MEDS: INSULIN ASPART SUPPLEMENTAL SCALE SQ SCH (22:10)
[2017-02-12] MEDS ORDERED: diphenhydrAMINE HCL 50 MG CAP PO ONE (23:00)
[2017-02-13] VITALS (10 sets, daily range): BP systolic 71–104; BP diastolic 40–63; PULSE 59–74; RESP 16–19; TEMP 98–99.2; O2SAT 94–97
[2017-02-13] MEDS ORDERED: MIDODRINE 5 MG TAB PO PRN (03:00)
[2017-02-13] MEDS: PIPERACIL-TAZO 3.375 GM PREMIX 50 ML IV SCH ×4 (03:27→22:41)
[2017-02-13] MEDS: D5-1/2 NS + KCL 20 MEQ INJ 1,000 ML IV SCH (04:31)
[2017-02-13] MEDS ORDERED: SODIUM CHLOR 0.9% 1000 ML INJ 1,000 ML IV ONE ×2 (05:30→10:30)
[2017-02-13] MEDS ORDERED: VANCOMYCIN INJ 1,500 MG in SODIUM CHLORID 0.9% 500 ML INJ 500 ML IV SCH (08:00)
[2017-02-13] MEDS: INSULIN ASPART SUPPLEMENTAL SCALE SQ SCH ×4 (08:00→22:50)
--- NOTE | 2017-02-13 08:12 | RADRPT ---
EXAM DATE/TIME: 02/13/2017 05:45 [place] COMPARISON: CT ABDOMEN & PELVIS W CONTRAST, February 12, 2017, 16:41. INDICATIONS : Patient complains of pain in the hypogastric region for 1 week. MEDICAL HISTORY : Cardiovascular disease. SURGICAL HISTORY : Hysterectomy. ENCOUNTER: Subsequent ACUITY: 1 week PAIN SCORE: 7/10 LOCATION: Bilateral Abdomen. FINDINGS: Supine view of the abdomen was performed. Air is seen throughout the colon. No dilated loops of bowel . No gross free air or pneumatosis. Contrast is seen in the bladder from recent contrast administrati on. No abnormal calcifications. Remainder of the exam is unchanged. CONCLUSION: 1. Nonobstructive bowel gas pattern. Azael Patricio MD on February 13, 2017 at 8:09 Board Certified Radiologist. This report was verified electronically.
[2017-02-13 08:37] LABS: BICARBONATE 22.3 MEQ/L (21.0-32.0)
[2017-02-13 08:39] LABS: POTASSIUM 3.8 MEQ/L (3.5-5.1)
[2017-02-13 08:40] LABS: CALCIUM-PROTEIN CORRECTED 8.5 MG/DL (8.5-10.1); TOTAL BILIRUBIN ADULT 0.6 MG/DL (0.2-1.0)
[2017-02-13] MEDS ORDERED: PNEUMOCOCCAL POLYVALENT INJ 25 MCG/0.5 ML SYR IM ONE (09:00)
[2017-02-13] MEDS: SODIUM CHLORIDE 0.9% FLUSH 10 ML FLUSH IV FLUSH SCH ×2 (09:00→21:00)
[2017-02-13] MEDS ORDERED: INFLUENZA VIRUS VACCINE (QUADRIVALENT) 0.5 ML SYR IM ONE (09:00)
--- NOTE | 2017-02-13 10:35 | HHI.PR ---
Subjective Remarks states 3-4 days of diarrhea, liquid brown stools- 4-5x a day yesterday-evening - nausea and vomiting no BM since admission now hungry earlier complained of chest pain- lasting for seconds states also history of reflux now hungry denies any recent surgery denies any urinary symptoms or flanks pain- history of frequent UTI- last treated about 3 months ago- does not recall meds- but then she had burning urination no recent surgery does complain of whitish vaginal discharge and pruritus- sounds like she has recurrent yeast infection- received Diflucan in the "couple of months ago" states blood sugars 200s Objective Vitals Vital Signs Date Time Temp Pulse Resp B/P (MAP) Pulse Ox O2 Delivery O2 Flow Rate FiO2 02/13/17 05:20 75/40 (52) 02/13/17 05:04 59 02/13/17 03:31 98.6 59 18 84/50 (61) 95 02/13/17 01:39 98.2 64 19 71/46 (54) 97 02/12/17 23:27 80/51 (61) 02/12/17 20:45 98.3 69 16 76/47 (57) 96 02/12/17 20:14 73 16 89/50 (63) 98 02/12/17 18:27 89 20 93 Room Air 02/12/17 17:52 99.4 02/12/17 15:26 106 17 128/65 (86) 96 Nasal Cannula 2.00 02/12/17 15:00 102.8 02/12/17 14:07 119 16 161/118 (132) 93 I/O 02/12/17 02/12/17 02/12/17 02/13/17 02/13/17 02/13/17 07:00 15:00 23:00 07:00 15:00 23:00 Intake Total 3450 ml 2900 ml Balance 3450 ml 2900 ml Intake IV Total 3450 ml 2900 ml # Voids 1 Result Diagram: 02/12/17 1420 02/13/17 0655 Imaging Last Impressions Abdomen X-Ray 02/13/17 0715 Signed Impressions: Service Date/Time: Monday, February 13, 2017 05:45 - CONCLUSION: 1. Nonobstructive bowel gas pattern. Azael Patricio MD Chest X-Ray 02/12/17 1418 Signed Impressions: Service Date/Time: January 14:32 - CONCLUSION: The lungs are clear. Dragan Brenner MD Abdomen/Pelvis CT 02/12/17 0000 Signed Impressions: Service Date/Time: January 16:41 - CONCLUSION: 1. No acute findings. Postoperative hysterectomy. Fatty liver. Basilar atelectasis in the lungs. Jung Coppola MD Objective Remarks awake and alert dry oral mucosa anicteric no nuchal rigidity lungs clear abdomen soft, nontender no guarding, no CVA tenderness extremities no edema, no calf tenderness neuro exam- non focal A/P Problem List: (1) DM (diabetes mellitus) ICD Code: E11.9 - Type 2 diabetes mellitus without complications Status: Chronic (2) Sepsis ICD Code: A41.9 - Sepsis, unspecified organism Status: Acute Assessment and Plan 51 years old female Gram negative sepsis- likely source UTI started on Zosyn will ff blood cultures and urine cultures monitor Blood sugars Hypotension- likely from volume loss and sepsis per patient though she usually runs int 80-90s will give another IV 1L bolus and change IVF to NS 100 cc/hr no melena or hematochezia REcent diarrhea- Gastroenteritis- sound like viral check stools she has diarrhea here Chest pain- atypical- GERD- severe "reflux" EKG negative she had a myocardial perfusions study done here in 10/2016 - normal with good EF check troponin now and d dimer at one time on Zantac- not working start PPI consider GI consult- can be done as OP Vaginitis- smells like Candidiasis give X1 Diflucan Elevated LFTs- near baseline from comparison likely fatty liver Lovenox- hold now due to hypotension- will check a CBC to make sure no bleeding or drop in H and H accounting for hypotension PPI Problem Qualifiers (1) Sepsis: Qualified Codes: A41.9 - Sepsis, unspecified organism Rashida Redd MD Feb 13, 2017 10:35
[2017-02-13] MEDS ORDERED: PANTOPRAZOLE SODIUM 40 MG VIAL IV PUSH SCH (11:00)
[2017-02-13] MEDS ORDERED: FAMOTIDINE 20 MG/2 ML VIAL IV PUSH SCH (11:00)
[2017-02-13 11:31] LABS: AUTOMATED NEUTROPHIL # 5.5 TH/MM3 (1.8-7.7); BASOPHIL % 0.1 % (0.0-2.0); EOSINOPHIL # 0.1 TH/MM3 (0-0.4); EOSINOPHIL % 1.1 % (0.0-4.0); HEMATOCRIT 36.8 % (35.0-46.0); HEMO FLAGS DIFF FINAL; LYMPH % 23.6 % (9.0-44.0); MEAN CELL VOLUME 84.1 FL (80.0-100.0); MEAN CORPUSCULAR HEMOGLOBIN 28.2 PG (27.0-34.0); MEAN CORPUSCULAR HGB CONC 33.6 % (32.0-36.0); MONO % 8.9 % (0.0-8.0); NEUT % 66.3 % (16.0-70.0); PLATELET COUNT 202 TH/MM3 (150-450); RED BLOOD COUNT 4.37 MIL/MM3 (4.00-5.30); RED CELL DISTRIBUTION WIDTH 13.2 % (11.6-17.2); WHITE BLOOD COUNT 8.3 TH/MM3 (4.0-11.0)
--- NOTE | 2017-02-13 13:20 | EKG ---
Date Performed: 02/12/2017 Time Performed: 20:24:52 PTAGE: 51 years EKG: Sinus rhythm Since previous tracing, no significant change noted NORMAL ECG PREVIOUS TRACING : 11/15/2016 02.48 DOCTOR: Vlad Pressley Interpretating Date/Time 02/13/2017 13:18:11
--- NOTE | 2017-02-13 13:20 | EKG ---
Date Performed: 02/13/2017 Time Performed: 09:48:42 PTAGE: 51 years EKG: Sinus rhythm Since previous tracing, no significant change noted NORMAL ECG PREVIOUS TRACING : 02/12/2017 20.24 DOCTOR: Vlad Pressley Interpretating Date/Time 02/13/2017 13:19:18
[2017-02-13] MEDS: POTASSIUM CHLORIDE INJ 10 MEQ in SODIUM CHLOR 0.9% 1000 ML INJ 1,000 ML IV SCH (14:24)
--- NOTE | 2017-02-13 14:54 | PD.ID.CON ---
History of Present Illness Service ID Consult Requested By Dr Ledesma Reason for Consult Gram negative sepsis Primary Care Physician No Primary Care Physician Diagnoses: History of Present Illness 51-year-old morbidly obese diabetic female presents to the emergency department for evaluation of nausea and multiple episodes of vomiting for 4 hours. She also reports approximately 4 episodes of diarrhea. She presented with a temperature of 102.8 upon arrival. She reports frequent UTIs and cloudy urine On presentation fever, leukocytosis, lactic acidosis of 4.1 Started on broad spectrum abx Past Family Social History Allergies: Coded Allergies: chocolate flavor (Unverified Allergy, Severe, Anaphylaxis, 02/12/17) Chocolate vancomycin (Unverified Allergy, Severe, ITCH AND FEELS HOT STS LIKE RED MAN SYNDROME, 02/12/17) Past Medical History DM Afib Migraines Heart murmur GERD Past Surgical History Hysterectomy Active Ordered Medications Medications where reviewed in EMR Antibiotics Include: zosyn Family History Father with HTN and DM Social History Patient denies smoking, significant alcohol intake or use of any illicit drugs. Physical Exam Vital Signs Vital Signs Date Time Temp Pulse Resp B/P (MAP) Pulse Ox O2 Delivery O2 Flow Rate FiO2 02/13/17 12:00 98.4 69 18 102/63 (76) 96 02/13/17 11:10 98.0 64 17 96/54 (68) 94 02/13/17 05:20 75/40 (52) 02/13/17 05:04 59 02/13/17 03:31 98.6 59 18 84/50 (61) 95 02/13/17 01:39 98.2 64 19 71/46 (54) 97 02/12/17 23:27 80/51 (61) 02/12/17 20:45 98.3 69 16 76/47 (57) 96 02/12/17 20:14 73 16 89/50 (63) 98 02/12/17 18:27 89 20 93 Room Air 02/12/17 17:52 99.4 02/12/17 15:26 106 17 128/65 (86) 96 Nasal Cannula 2.00 02/12/17 15:00 102.8 Physical Exam CONSTITUTIONAL/GENERAL: This is a morbidly onbese female patient, in no apparent distress. TUBES/LINES/DRAINS: SKIN: No jaundice, rashes, or lesions. Skin temperature appropriate. Not diaphoretic. HEAD: Atraumatic. Normocephalic. EYES: Pupils equal and round and reactive. Extraocular motions intact. No scleral icterus. No injection or drainage. Fundi not examined. ENT: Hearing grossly normal. Nose without bleeding or purulent drainage. Oral mucosa without visible erythema, exudates, masses, or lesions. NECK: Trachea midline. Supple, nontender. CARDIOVASCULAR: Regular rate and rhythm without murmurs, gallops, or rubs. No JVD. Peripheral pulses symmetric. RESPIRATORY/CHEST: Symmetric, unlabored respirations. Clear to auscultation. Breath sounds equal bilaterally. No wheezes, rales, or rhonchi. GASTROINTESTINAL: Abdomen soft, non-tender, nondistended. No hepato-splenomegaly , or palpable masses. No guarding. Bowel sounds present. GENITOURINARY: Without palpable bladder distension. No CVA tenderness b/l MUSCULOSKELETAL: Extremities without clubbing, cyanosis, or edema. No joint tenderness or effusion noted. No calf tenderness. No mottling or clubbing. LYMPHATICS: No palpable cervical or supraclavicular adenopathy. NEUROLOGICAL: Awake and alert. Motor and sensory grossly within normal limits. Follows commands. Clear speech. Moves all extremities. PSYCHIATRIC: No obvious anxiety/depression. no apparent hallucinations or other psychotic thought process. Laboratory Laboratory Tests Test 02/12/17 15:25 02/12/17 15:50 02/12/17 17:18 02/13/17 06:55 Urine Color YELLOW Urine Turbidity CLEAR Urine pH 5.0 Urine Specific [place] 1.012 Urine Protein NEG Urine Glucose (UA) 300 Urine Ketones TRACE Urine Occult Blood NEG Urine Nitrite NEG Urine Bilirubin NEG Urine Urobilinogen LESS THAN 2.0 Urine Leukocyte Esterase TRACE Urine RBC 1 Urine WBC 3 Urine Squamous Epithelial Cells 1 Urine Amorphous Sediment RARE Urine Bacteria RARE Urine Mucus FEW Microscopic Urinalysis Comment CATH-CULTURE IND Prothrombin Time 12.0 Prothromb Time International Ratio 1.1 Activated Partial Thromboplast Time 23.8 Lactic Acid Level 1.9 Blood Urea Nitrogen 9 Creatinine 0.63 Random Glucose 195 Total Protein 5.2 Albumin 2.5 Calcium Level 7.4 Alkaline Phosphatase 98 Aspartate Amino Transf (AST/SGOT) 50 Alanine Aminotransferase (ALT/SGPT) 59 Total Bilirubin 0.6 Sodium Level 142 Potassium Level 3.8 Chloride Level 110 Carbon Dioxide Level 22.3 Anion Gap 10 Estimat Glomerular Filtration Rate 100 Protein Corrected Calcium 8.5 Test 02/13/17 11:08 White Blood Count 8.3 Red Blood Count 4.37 Hemoglobin 12.3 Hematocrit 36.8 Mean Corpuscular Volume 84.1 Mean Corpuscular Hemoglobin 28.2 Mean Corpuscular Hemoglobin Concent 33.6 Red Cell Distribution Width 13.2 Platelet Count 202 Mean Platelet Volume 7.8 Neutrophils (%) (Auto) 66.3 Lymphocytes (%) (Auto) 23.6 Monocytes (%) (Auto) 8.9 Eosinophils (%) (Auto) 1.1 Basophils (%) (Auto) 0.1 Neutrophils # (Auto) 5.5 Lymphocytes # (Auto) 2.0 Monocytes # (Auto) 0.7 Eosinophils # (Auto) 0.1 Basophils # (Auto) 0.0 CBC Comment DIFF FINAL Differential Comment D-Dimer Quantitative (PE/DVT) 0.47 Troponin I LESS THAN 0.02 Date/Time Source Procedure Growth Status 02/12/17 14:35 Blood Peripheral Aerobic Blood Culture - Preliminary NO GROWTH IN 1 DAY Resulted 02/12/17 14:35 Blood Peripheral Anaerobic Blood Culture - Preliminary NO GROWTH IN 1 DAY Resulted 02/12/17 14:34 Nasal Aspirate Influenza Types A,B Antigen (SELENE) - Final NEGATIVE FOR FLU A AND B ANTIGEN.... Complete 02/12/17 15:25 Urine Catheterized Urine Urine Culture - Preliminary Gram Negative Tommy Resulted Result Diagram: 02/13/17 1108 02/13/17 0655 Imaging Last Impressions Abdomen X-Ray 02/13/17 0715 Signed Impressions: Service Date/Time: Monday, February 13, 2017 05:45 - CONCLUSION: 1. Nonobstructive bowel gas pattern. Azael Patricio MD Chest X-Ray 02/12/17 1418 Signed Impressions: Service Date/Time: January 14:32 - CONCLUSION: The lungs are clear. Dragan Brenner MD Abdomen/Pelvis CT 02/12/17 0000 Signed Impressions: Service Date/Time: January 16:41 - CONCLUSION: 1. No acute findings. Postoperative hysterectomy. Fatty liver. Basilar atelectasis in the lungs. Jung Coppola MD Assessment and Plan Assessment and Plan UTI, E.coli, bacteremic Sepsis on presentation (fever, leukocyutosis, lactioc acidosis) cont zosyn fu blood and urine clx anticipate eventuual transition to po abx Jael Rainey MD Feb 13, 2017 14:54
[2017-02-13] MEDS ORDERED: FLUCONAZOLE 100 MG TAB PO ONE (15:00)
[2017-02-13] MEDS: ENOXAPARIN SODIUM 30 MG/0.3 ML SYRINGE SQ SCH (18:04)
[2017-02-13] MEDS: ACETAMINOPHEN 500 MG CPLT PO PRN (22:41)
[2017-02-14] VITALS (8 sets, daily range): BP systolic 100–144; BP diastolic 47–73; PULSE 69–81; RESP 17–20; TEMP 98.8–100.1; O2SAT 94–97
[2017-02-14] MEDS: POTASSIUM CHLORIDE INJ 10 MEQ in SODIUM CHLOR 0.9% 1000 ML INJ 1,000 ML IV SCH ×2 (01:50→07:06)
[2017-02-14] MEDS ORDERED: ACETAMIN 325 MG/BUTALBITAL 50 MG/CAFFEINE 40 MG TAB PO ONE (04:45)
[2017-02-14] MEDS: PIPERACIL-TAZO 3.375 GM PREMIX 50 ML IV SCH ×2 (05:03→08:39)
[2017-02-14] MEDS ORDERED: PHARMACY ORDERED LAB ONE (07:45)
[2017-02-14] MEDS: SODIUM CHLORIDE 0.9% FLUSH 10 ML FLUSH IV FLUSH SCH ×2 (08:32→20:03)
[2017-02-14] MEDS: INSULIN ASPART SUPPLEMENTAL SCALE SQ SCH ×4 (08:38→20:04)
--- NOTE | 2017-02-14 10:30 | HHI.PR ---
Subjective Remarks feeling better no urinary complains no flank pain afebrile ambulating and had a shower Objective Vitals Vital Signs Date Time Temp Pulse Resp B/P (MAP) Pulse Ox O2 Delivery O2 Flow Rate FiO2 02/14/17 08:00 99.0 71 20 100/55 (70) 96 02/14/17 05:25 98.8 71 18 117/47 (70) 95 02/14/17 05:14 144/73 (96) 02/14/17 00:08 99.1 71 18 100/59 (73) 97 02/13/17 21:00 99.2 68 16 104/54 (71) 95 02/13/17 19:00 74 02/13/17 16:00 98.8 69 18 100/57 (71) 94 02/13/17 12:00 98.4 69 18 102/63 (76) 96 I/O 02/13/17 02/13/17 02/13/17 02/14/17 02/14/17 02/14/17 07:00 15:00 23:00 07:00 15:00 23:00 Intake Total 2900 ml 50 ml Balance 2900 ml 50 ml Intake IV Total 2900 ml 50 ml # Voids 1 2 Result Diagram: 02/13/17 1108 02/13/17 0655 Imaging Last Impressions Abdomen X-Ray 02/13/17 0715 Signed Impressions: Service Date/Time: Monday, February 13, 2017 05:45 - CONCLUSION: 1. Nonobstructive bowel gas pattern. Azael Patricio MD Chest X-Ray 02/12/17 1418 Signed Impressions: Service Date/Time: January 14:32 - CONCLUSION: The lungs are clear. Dragan Brenner MD Abdomen/Pelvis CT 02/12/17 0000 Signed Impressions: Service Date/Time: January 16:41 - CONCLUSION: 1. No acute findings. Postoperative hysterectomy. Fatty liver. Basilar atelectasis in the lungs. Jung Coppola MD Objective Remarks awake and alert moist oral mucosa anicteric no nuchal rigidity lungs clear abdomen soft, nontender no guarding, no CVA tenderness extremities no edema, no calf tenderness neuro exam- non focal A/P Problem List: (1) DM (diabetes mellitus) ICD Code: E11.9 - Type 2 diabetes mellitus without complications Status: Chronic (2) Sepsis ICD Code: A41.9 - Sepsis, unspecified organism Status: Acute Assessment and Plan 51 years old female E coli sepsis- likely source UTI- started on Zosyn monitor Blood sugars Repeat Blood cultures today- Hypotension- likely from volume loss and sepsis- Resolved monitor - heplock REcent diarrhea- Gastroenteritis- sound like viral - no further episodes Chest pain- atypical- GERD- severe "reflux" EKG negative she had a myocardial perfusions study done here in 10/2016 - normal with good EF check troponin now and d dimer at one time on Zantac- not working on PPI Vaginitis- smells like Candidiasis- improved S/P give X1 Diflucan Elevated LFTs- near baseline from comparison likely fatty liver up and ambulating PPI repeat blood cultures CM- assist- no insurance- for OP antiboitcs + oral hypoglycemics Problem Qualifiers (1) Sepsis: Qualified Codes: A41.9 - Sepsis, unspecified organism Rashida Redd MD Feb 14, 2017 10:30
[2017-02-14] MEDS: ACETAMIN 325 MG/BUTALBITAL 50 MG/CAFFEINE 40 MG TAB PO PRN ×2 (12:22→20:00)
[2017-02-14 13:07] LABS: HEMOGLOBIN A1a 0.8 %; HEMOGLOBIN A1b 1.2 %; HEMOGLOBIN Ao 79.6 %; HEMOGLOBIN F 1.2 %; HEMOGLOBIN LA1C 2.7 %; HEMOGLOBIN P3 4.4 %
--- NOTE | 2017-02-14 14:02 | HHI.IDPN ---
Subjective Subjective Remarks having low grade fever no disuria Antibiotics zosyn Allergies: Coded Allergies: chocolate flavor (Unverified Allergy, Severe, Anaphylaxis, 02/12/17) Chocolate vancomycin (Unverified Allergy, Severe, ITCH AND FEELS HOT STS LIKE RED MAN SYNDROME, 02/12/17) Objective . Vital Signs Date Time Temp Pulse Resp B/P (MAP) Pulse Ox O2 Delivery O2 Flow Rate FiO2 02/14/17 12:00 100.1 78 17 123/66 (85) 97 02/14/17 08:03 69 02/14/17 08:00 99.0 71 20 100/55 (70) 96 02/14/17 05:25 98.8 71 18 117/47 (70) 95 02/14/17 05:14 144/73 (96) 02/14/17 00:08 99.1 71 18 100/59 (73) 97 02/13/17 21:00 99.2 68 16 104/54 (71) 95 02/13/17 19:00 74 02/13/17 16:00 98.8 69 18 100/57 (71) 94 02/14/17 02/14/17 02/15/17 15:00 23:00 07:00 Intake Total 250 ml Balance 250 ml Intake IV Total 250 ml . Laboratory Tests Test 02/12/17 14:20 02/13/17 11:08 White Blood Count 12.3 TH/MM3 8.3 TH/MM3 Red Blood Count 5.27 MIL/MM3 4.37 MIL/MM3 Hemoglobin 15.4 GM/DL 12.3 GM/DL Hematocrit 43.9 % 36.8 % Mean Corpuscular Volume 83.4 FL 84.1 FL Mean Corpuscular Hemoglobin 29.3 PG 28.2 PG Mean Corpuscular Hemoglobin Concent 35.1 % 33.6 % Red Cell Distribution Width 12.9 % 13.2 % Platelet Count 235 TH/MM3 202 TH/MM3 Mean Platelet Volume 8.3 FL 7.8 FL Neutrophils (%) (Auto) 92.3 % 66.3 % Lymphocytes (%) (Auto) 6.1 % 23.6 % Monocytes (%) (Auto) 1.1 % 8.9 % Eosinophils (%) (Auto) 0.4 % 1.1 % Basophils (%) (Auto) 0.1 % 0.1 % Neutrophils # (Auto) 11.4 TH/MM3 5.5 TH/MM3 Lymphocytes # (Auto) 0.8 TH/MM3 2.0 TH/MM3 Monocytes # (Auto) 0.1 TH/MM3 0.7 TH/MM3 Eosinophils # (Auto) 0.0 TH/MM3 0.1 TH/MM3 Basophils # (Auto) 0.0 TH/MM3 0.0 TH/MM3 CBC Comment DIFF FINAL DIFF FINAL Differential Comment Laboratory Tests Test 02/12/17 14:20 02/12/17 14:35 02/12/17 17:18 02/13/17 06:55 Blood Urea Nitrogen 13 MG/DL 9 MG/DL Creatinine 0.96 MG/DL 0.63 MG/DL Random Glucose 288 MG/DL 195 MG/DL Total Protein 7.1 GM/DL 5.2 GM/DL Albumin 3.3 GM/DL 2.5 GM/DL Calcium Level 8.9 MG/DL 7.4 MG/DL Magnesium Level 1.3 MG/DL Alkaline Phosphatase 167 U/L 98 U/L Aspartate Amino Transf (AST/SGOT) 55 U/L 50 U/L Alanine Aminotransferase (ALT/SGPT) 63 U/L 59 U/L Total Bilirubin 0.7 MG/DL 0.6 MG/DL Sodium Level 135 MEQ/L 142 MEQ/L Potassium Level 3.7 MEQ/L 3.8 MEQ/L Chloride Level 101 MEQ/L 110 MEQ/L Carbon Dioxide Level 23.2 MEQ/L 22.3 MEQ/L Anion Gap 11 MEQ/L 10 MEQ/L Estimat Glomerular Filtration Rate 62 ML/MIN 100 ML/MIN Lipase 207 U/L Lactic Acid Level 4.1 mmol/L 1.9 mmol/L Protein Corrected Calcium 8.5 MG/DL Test 02/13/17 11:08 02/14/17 07:10 Troponin I LESS THAN 0.02 NG/ML Hemoglobin A1c 9.6 % Microbiology Date/Time Source Procedure Growth Status 02/14/17 11:50 Blood Peripheral Aerobic Blood Culture Pending Received 02/14/17 11:50 Blood Peripheral Anaerobic Blood Culture Pending Received 02/14/17 11:45 Blood Peripheral Aerobic Blood Culture Pending Received 02/14/17 11:45 Blood Peripheral Anaerobic Blood Culture Pending Received 02/12/17 14:35 Blood Peripheral Aerobic Blood Culture - Preliminary NO GROWTH IN 2 DAYS Resulted 02/12/17 14:35 Blood Peripheral Anaerobic Blood Culture - Preliminary NO GROWTH IN 2 DAYS Resulted 02/12/17 14:20 Blood Peripheral Aerobic Blood Culture - Preliminary NO GROWTH IN 2 DAYS Resulted 02/12/17 14:20 Anaerobic Blood Culture - Preliminary Escherichia Coli Resulted 02/12/17 14:34 Nasal Aspirate Influenza Types A,B Antigen (SELENE) - Final NEGATIVE FOR FLU A AND B ANTIGEN.... Complete 02/12/17 15:25 Urine Catheterized Urine Urine Culture - Final Escherichia Coli Complete Imaging Last Impressions Abdomen X-Ray 02/13/17 0715 Signed Impressions: Service Date/Time: Monday, February 13, 2017 05:45 - CONCLUSION: 1. Nonobstructive bowel gas pattern. Azael Patricio MD Chest X-Ray 02/12/17 1418 Signed Impressions: Service Date/Time: January 14:32 - CONCLUSION: The lungs are clear. Dragan Brenner MD Abdomen/Pelvis CT 02/12/17 0000 Signed Impressions: Service Date/Time: January 16:41 - CONCLUSION: 1. No acute findings. Postoperative hysterectomy. Fatty liver. Basilar atelectasis in the lungs. Jung Coppola MD Physical Exam CONSTITUTIONAL/GENERAL: This is a morbidly onbese female patient, in no apparent distress. TUBES/LINES/DRAINS: SKIN: No jaundice, rashes, or lesions. EYES: Pupils equal and round and reactive. Extraocular motions intact. No scleral icterus. No injection or drainage. Fundi not examined. CARDIOVASCULAR: Regular rate and rhythm without murmurs, gallops, or rubs. No JVD. Peripheral pulses symmetric. RESPIRATORY/CHEST: Symmetric, unlabored respirations. Clear to auscultation. Breath sounds equal bilaterally. No wheezes, rales, or rhonchi. GASTROINTESTINAL: Abdomen soft, non-tender, nondistended. No hepato-splenomegaly , or palpable masses. No guarding. Bowel sounds present. GENITOURINARY: Without palpable bladder distension. MUSCULOSKELETAL: Extremities without clubbing, cyanosis, or edema. NEUROLOGICAL: Awake and alert. non focal PSYCHIATRIC:calm, pleasant Assessment & Plan Remarks UTI, E.coli, bacteremic Sepsis on presentation (fever, leukocytosis, lactic acidosis) Still fever dc zosyn start CFTX anticipate eventuual transition to po abx (cirpo) and dc if remainas afberile fu repeat blolood clx Jael Rainey MD Feb 14, 2017 14:02
[2017-02-14] MEDS: cefTRIAXone INJ 2,000 MG in SODIUM CHLORIDE 0.9% INJ 100 ML IV SCH (15:17)
[2017-02-14] MEDS: glipiZIDE 5 MG TAB PO SCH (15:19)
[2017-02-14] MEDS: ENOXAPARIN SODIUM 30 MG/0.3 ML SYRINGE SQ SCH (17:18)
[2017-02-14] MEDS: metFORMIN HCL 500 MG TAB PO SCH (20:03)
[2017-02-14] MEDS ORDERED: metFORMIN HCL 500 MG TAB PO SCH (21:00)
[2017-02-15] VITALS (9 sets, daily range): BP systolic 96–133; BP diastolic 55–67; PULSE 69–95; RESP 17–18; TEMP 97.8–101.2; O2SAT 94–97
[2017-02-15] MEDS: ACETAMINOPHEN 500 MG CPLT PO PRN ×2 (04:20→17:38)
--- NOTE | 2017-02-15 07:55 | HHI.PR ---
Subjective Remarks no headaches, neck pain, nausea or vomiting fever 101.2 last evening with sweating patient - no urinary symptoms at all, no flank pain or abdominal pain minmal cough- non productive Objective Vitals Vital Signs Date Time Temp Pulse Resp B/P (MAP) Pulse Ox O2 Delivery O2 Flow Rate FiO2 02/15/17 06:06 97.8 02/15/17 05:39 101.2 95 18 104/55 (71) 02/15/17 01:51 99.9 75 18 133/67 (89) 96 02/14/17 21:27 99.7 81 18 106/58 (74) 96 02/14/17 16:00 100.1 78 17 112/58 (76) 94 02/14/17 12:00 100.1 78 17 123/66 (85) 97 02/14/17 08:03 69 02/14/17 08:00 99.0 71 20 100/55 (70) 96 I/O 02/14/17 02/14/17 02/14/17 02/15/17 02/15/17 02/15/17 07:00 15:00 23:00 07:00 15:00 23:00 Intake Total 250 ml 2500 ml Balance 250 ml 2500 ml Intake Oral 2400 ml IV Total 250 ml 100 ml # Voids 2 7 # Bowel Movements 0 Result Diagram: 02/13/17 1108 02/13/17 0655 Imaging Last Impressions Abdomen X-Ray 02/13/17 0715 Signed Impressions: Service Date/Time: Monday, February 13, 2017 05:45 - CONCLUSION: 1. Nonobstructive bowel gas pattern. Azael Patricio MD Chest X-Ray 02/12/17 1418 Signed Impressions: Service Date/Time: January 14:32 - CONCLUSION: The lungs are clear. Dragan Brenner MD Abdomen/Pelvis CT 02/12/17 0000 Signed Impressions: Service Date/Time: January 16:41 - CONCLUSION: 1. No acute findings. Postoperative hysterectomy. Fatty liver. Basilar atelectasis in the lungs. Jung Coppola MD Objective Remarks awake and alert moist oral mucosa, no exudates anicteric no nuchal rigidity lungs clear abdomen soft, nontender, no guarding, no CVA tenderness extremities no edema, no calf tenderness neuro exam- non focal A/P Problem List: (1) DM (diabetes mellitus) ICD Code: E11.9 - Type 2 diabetes mellitus without complications Status: Chronic (2) Sepsis ICD Code: A41.9 - Sepsis, unspecified organism Status: Acute Assessment and Plan 51 years old female E coli sepsis- likely source UTI- Tmax 101.2 was on Zosyn. changed to Ceftriaxone 02/14 by ID Repeat Blood cultures drawn 02/14- ff results Hypotension- likely from volume loss and sepsis- Resolved REcent diarrhea- Gastroenteritis- sound like viral - no further episodes Chest pain- atypical- no further complains EKG negative she had a myocardial perfusions study done here in 10/2016 - normal with good EF check troponin and d dimer engative GERD at one time on Zantac- not working on PPI- symptoms improving Vaginitis- smells like Candidiasis- improved S/P give X1 Diflucan Elevated LFTs- near baseline from comparison likely fatty liver DM- type 2 - A1C- 9.6 on metformin 1 gm bid and glipizide 5 mg bid. Monitor and adjust- beter readings dietitian consult and diabetes education- reinforcements up and ambulating CM- assist- no insurance- for OP antibiotics + oral hypoglycemics Problem Qualifiers (1) Sepsis: Qualified Codes: A41.9 - Sepsis, unspecified organism Rashida Redd MD Feb 15, 2017 07:55
[2017-02-15 08:55] LABS: AUTOMATED NEUTROPHIL # 7.1 TH/MM3 (1.8-7.7); BASOPHIL % 0.3 % (0.0-2.0); EOSINOPHIL # 0.1 TH/MM3 (0-0.4); EOSINOPHIL % 0.7 % (0.0-4.0); HEMATOCRIT 37.9 % (35.0-46.0); HEMO FLAGS DIFF FINAL; LYMPH % 23.3 % (9.0-44.0); LYMPHOCYTE # 2.5 TH/MM3 (1.0-4.8); MEAN CELL VOLUME 83.1 FL (80.0-100.0); MEAN CORPUSCULAR HEMOGLOBIN 29.2 PG (27.0-34.0); MEAN CORPUSCULAR HGB CONC 35.1 % (32.0-36.0); NEUT % 66.7 % (16.0-70.0); PLATELET COUNT 216 TH/MM3 (150-450); RED BLOOD COUNT 4.56 MIL/MM3 (4.00-5.30); RED CELL DISTRIBUTION WIDTH 12.8 % (11.6-17.2); WHITE BLOOD COUNT 10.6 TH/MM3 (4.0-11.0)
[2017-02-15] MEDS: INSULIN ASPART SUPPLEMENTAL SCALE SQ SCH ×4 (09:10→21:00)
[2017-02-15] MEDS: glipiZIDE 5 MG TAB PO SCH ×2 (09:11→15:35)
[2017-02-15] MEDS: SODIUM CHLORIDE 0.9% FLUSH 10 ML FLUSH IV FLUSH SCH ×2 (09:11→21:08)
[2017-02-15] MEDS: PANTOPRAZOLE SOD 40 MG DELAYED RELEASE TAB PO SCH (09:12)
[2017-02-15] MEDS: metFORMIN HCL 500 MG TAB PO SCH ×2 (09:12→21:09)
[2017-02-15 09:37] LABS: ALKALINE PHOSPHATASE 114 U/L (45-117); ALT (GPT) 55 U/L (10-53); ANION GAP 8 MEQ/L (5-15); AST (GOT) 29 U/L (15-37); BICARBONATE 25.6 MEQ/L (21.0-32.0); BLOOD UREA NITROGEN 5 MG/DL (7-18); CHLORIDE 107 MEQ/L (98-107); GLOMERULAR FILTRATION RATE 90 ML/MIN (>89); POTASSIUM 3.9 MEQ/L (3.5-5.1); SODIUM (NA) 141 MEQ/L (136-145); TOTAL BILIRUBIN ADULT 0.5 MG/DL (0.2-1.0)
[2017-02-15] MEDS: cefTRIAXone INJ 2,000 MG in SODIUM CHLORIDE 0.9% INJ 100 ML IV SCH (15:37)
[2017-02-15] MEDS: ENOXAPARIN SODIUM 30 MG/0.3 ML SYRINGE SQ SCH (17:35)
[2017-02-16] VITALS: BP 115/63; PULSE 72; RESP 17; TEMP 98.4; O2SAT 97
[2017-02-16 04:00] VITALS: BP 100/56; PULSE 75; RESP 16; TEMP 98.5; O2SAT 95
[2017-02-16 07:38] VITALS: BP 106/62; PULSE 78; RESP 20; TEMP 98.6; O2SAT 96
[2017-02-16] MEDS: PANTOPRAZOLE SOD 40 MG DELAYED RELEASE TAB PO SCH (09:18)
[2017-02-16] MEDS: glipiZIDE 5 MG TAB PO SCH (09:18)
[2017-02-16] MEDS: metFORMIN HCL 500 MG TAB PO SCH (09:19)
[2017-02-16] MEDS: INSULIN ASPART SUPPLEMENTAL SCALE SQ SCH (09:20)
--- NOTE | 2017-02-16 10:44 | HHI.PR ---
Subjective Remarks afebrile, no chills feels great Objective Vitals Vital Signs Date Time Temp Pulse Resp B/P (MAP) Pulse Ox O2 Delivery O2 Flow Rate FiO2 02/16/17 07:38 98.6 78 20 106/62 (77) 96 02/16/17 04:00 98.5 75 16 100/56 (71) 95 02/16/17 00:00 98.4 72 17 115/63 (80) 97 02/15/17 20:51 98.9 76 18 118/56 (76) 95 02/15/17 20:00 75 02/15/17 16:00 99.4 76 17 96/63 (74) 94 02/15/17 12:00 98.6 89 17 127/56 (79) 97 I/O 02/15/17 02/15/17 02/15/17 02/16/17 02/16/17 02/16/17 06:59 14:59 22:59 06:59 14:59 22:59 Intake Total 2980 ml 480 ml Balance 2980 ml 480 ml Intake Oral 2880 ml 480 ml IV Total 100 ml # Voids 10 4 # Bowel Movements 3 Result Diagram: 02/15/17 0820 02/15/17 0820 Imaging Last Impressions Abdomen X-Ray 02/13/17 0715 Signed Impressions: Service Date/Time: Monday, February 13, 2017 05:45 - CONCLUSION: 1. Nonobstructive bowel gas pattern. Azael Patricio MD Chest X-Ray 02/12/17 1418 Signed Impressions: Service Date/Time: January 14:32 - CONCLUSION: The lungs are clear. Dragan Brenner MD Abdomen/Pelvis CT 02/12/17 0000 Signed Impressions: Service Date/Time: January 16:41 - CONCLUSION: 1. No acute findings. Postoperative hysterectomy. Fatty liver. Basilar atelectasis in the lungs. Jung Coppola MD Objective Remarks awake and alert moist oral mucosa, no exudates anicteric no nuchal rigidity lungs clear abdomen soft, nontender, no guarding, no CVA tenderness extremities no edema, no calf tenderness neuro exam- non focal A/P Problem List: (1) DM (diabetes mellitus) ICD Code: E11.9 - Type 2 diabetes mellitus without complications Status: Chronic (2) Sepsis ICD Code: A41.9 - Sepsis, unspecified organism Status: Acute Assessment and Plan 51 years old female E coli sepsis- likely source UTI- Tmax 101.2 was on Zosyn. changed to Ceftriaxone 02/14 by ID Repeat Blood cultures drawn 02/14- negative so far change to po ciprofloxacin 500 mg po bid x 10 days Hypotension- likely from volume loss and sepsis- Resolved REcent diarrhea- Gastroenteritis- sound like viral - no further episodes Chest pain- atypical- no further complains EKG negative she had a myocardial perfusions study done here in 10/2016 - normal with good EF check troponin and d dimer engative GERD at one time on Zantac- not working on PPI- symptoms improving Vaginitis- smells like Candidiasis- improved S/P give X1 Diflucan Elevated LFTs- near baseline from comparison likely fatty liver DM- type 2 - A1C- 9.6 on metformin 1 gm bid and glipizide 5 mg bid. Monitor and adjust- better readings dietitian consult and diabetes education- reinforced goals with her up and ambulating CM- assist- no insurance- for OP antibiotics + oral hypoglycemics she will set up with a PCP as OP Problem Qualifiers (1) Sepsis: Qualified Codes: A41.9 - Sepsis, unspecified organism Rashida Redd MD Feb 16, 2017 10:44
[2017-02-16] MEDS ORDERED: CIPR-9 PO (10:55)
[2017-02-16] MEDS ORDERED: METF500 PO (10:55)
[2017-02-16 11:55] VITALS: BP 112/71; PULSE 78; RESP 18; TEMP 98.3; O2SAT 96
[2017-02-16] MEDS: cefTRIAXone INJ 2,000 MG in SODIUM CHLORIDE 0.9% INJ 100 ML IV SCH (12:09)
--- NOTE | 2017-02-16 17:22 | HHI.DS ---
Discharge Summary Admission Date Feb 12, 2017 at 17:45 Discharge Date: Feb 16, 2017 Admitting Diagnosis sepsis without source (1) Sepsis ICD Code: A41.9 - Sepsis, unspecified organism Diagnosis: Principal Status: Acute (2) DM (diabetes mellitus) ICD Code: E11.9 - Type 2 diabetes mellitus without complications Diagnosis: Secondary Status: Chronic Procedures none Brief History - From Admission This is a 51-year-old female with history of atrial fibrillation and diabetes presenting with nausea and nonbilious, nonbloody psot-prandial vomiting for the last couple of days, associated with one loose watery bowel movement which started today, nonbloody, nonmucoid. No associated abdominal pain. Patient also started having subjective fever with chills. Patient denies any headache, neck pain, chest pain, shortness of breath, cough, rash, urinary symptoms like dysuria, frequency or urgency. There is also no open wound, denies IV drug use or recent antibiotic use. CBC/BMP: 02/15/17 0820 02/15/17 0820 Significant Findings Laboratory Tests Test 02/14/17 07:10 02/15/17 08:20 Hemoglobin A1c 9.6 % (4.3-6.0) Monocytes (%) (Auto) 9.0 % (0.0-8.0) Blood Urea Nitrogen 5 MG/DL (7-18) Random Glucose 151 MG/DL (74-106) Albumin 2.5 GM/DL (3.4-5.0) Alanine Aminotransferase (ALT/SGPT) 55 U/L (10-53) Imaging Last Impressions Abdomen X-Ray 02/13/17 0715 Signed Impressions: Service Date/Time: Monday, February 13, 2017 05:45 - CONCLUSION: 1. Nonobstructive bowel gas pattern. Azael Patricio MD Chest X-Ray 02/12/17 1418 Signed Impressions: Service Date/Time: January 14:32 - CONCLUSION: The lungs are clear. Dragan Brenner MD Abdomen/Pelvis CT 02/12/17 0000 Signed Impressions: Service Date/Time: January 16:41 - CONCLUSION: 1. No acute findings. Postoperative hysterectomy. Fatty liver. Basilar atelectasis in the lungs. Jung Coppola MD PE at Discharge awake and alert moist oral mucosa, no exudates anicteric no nuchal rigidity lungs clear abdomen soft, nontender, no guarding, no CVA tenderness extremities no edema, no calf tenderness neuro exam- non focal Pt update on day of discharge awake and alert, afebrile no pain very motivated with care and control of DM Hospital Course 51 years old female E coli sepsis- likely source UTI- Tmax 101.2 was on Zosyn. changed to Ceftriaxone 02/14 by ID Repeat Blood cultures drawn 02/14- negative so far change to po ciprofloxacin 500 mg po bid x 10 days Hypotension- likely from volume loss and sepsis- Resolved REcent diarrhea- Gastroenteritis- sound like viral - no further episodes Chest pain- atypical- no further complains EKG negative she had a myocardial perfusions study done here in 10/2016 - normal with good EF check troponin and d dimer engative GERD at one time on Zantac- not working on PPI- symptoms improving Vaginitis- smells like Candidiasis- improved S/P give X1 Diflucan Elevated LFTs- near baseline from comparison likely fatty liver DM- type 2 - A1C- 9.6 on metformin 1 gm bid and glipizide 5 mg bid. Monitor and adjust- better readings dietitian consult and diabetes education- reinforced goals with her up and ambulating CM- assist- no insurance- for OP antibiotics + oral hypoglycemics she will set up with a PCP as OP Pt Condition on Discharge: Stable Discharge Disposition: Discharge Home Discharge Time: <= 30 minutes Discharge Instructions DIET: Follow Instructions for: Diabetic Diet Speech Therapy-Diet Recommends: Regular Activities you can perform: Weight Bearing as [place] Follow up Referrals: PCP Follow-up with PCP PCP Follow-up New Medications: Ciprofloxacin (Cipro) 500 Mg Tab 500 MG PO BID for Infection for 10 Days, #20 TAB 0 Refills Metformin (Glucophage) 500 Mg Tab 1000 MG PO BID for DM for 30 Days, #120 TAB Continued Medications: Glipizide (Glipizide) 5 Mg Tab 5 MG PO BIDAC for Blood Sugar Management, #60 TAB 3 Refills Take 30 minutes before a meal Omeprazole (Omeprazole) 40 Mg Cap 40 MG PO DAILY, #30 CAP 3 Refills Rashida Redd MD Feb 16, 2017 17:22
== END 2017-02-16 15:35 | disposition home or self-care (01) | DRG 872 ==
LOC: NEPE 14:03 → NEDA 17:45 → N05B 20:41
PROVIDERS: ADMIT Internal Medicine; ATTEND Internal Medicine
DX: A41.51 Sepsis due to Escherichia coli [E. coli] (principal); E87.2 Acidosis; E83.42 Hypomagnesemia; E66.01 Morbid (severe) obesity due to excess calories; B37.3 Candidiasis of vulva and vagina; I48.91 Unspecified atrial fibrillation; N39.0 Urinary tract infection, site not specified; G43.909 Migraine, unspecified, not intractable, without status migrainosus; F32.9 Major depressive disorder, single episode, unspecified; E11.9 Type 2 diabetes mellitus without complications; R11.2 Nausea with vomiting, unspecified; Z79.01 Long term (current) use of anticoagulants; F41.9 Anxiety disorder, unspecified; K21.9 Gastro-esophageal reflux disease without esophagitis; Z87.442 Personal history of urinary calculi; Z87.440 Personal history of urinary (tract) infections; Z23 Encounter for immunization; A08.4 Viral intestinal infection, unspecified; R00.0 Tachycardia, unspecified; R07.89 Other chest pain; Z79.84 Long term (current) use of oral hypoglycemic drugs; Z95.5 Presence of coronary angioplasty implant and graft
CPT/HCPCS: 71010; 74000; 74177; 76937; 80053; 80307; 81001; 82948; 83036; 83605; 83690; 83735; 84484; 85025; 85379; 85610; 85730; 87040; 87077; 87086; 87186; 87205; 87804; 90686; 90732; 93005; 96361; 96374; 96375; C9113; J0696; J0780; J1200; J1650; J1815; J1885; J2543; J3370; J3475; J3480; J7030; J7050; Q0163; Q2038; Q9967

== ENCOUNTER 2017-04-22 12:54 | Emergency (ER) | payer SELFPAY ==
[~2017-04-22 12:54] MED LIST changes: +CIPR-9 PO; +METF500 PO
[2017-04-22 12:56] VITALS: BP 133/81; PULSE 84; RESP 16; TEMP 98.2; O2SAT 99
--- NOTE | 2017-04-22 15:14 | PD ---
HPI Chief Complaint: Musculoskeletal Complaint Time Seen by Provider: 14:07 Travel History International Travel<30 days: No Contact w/Intl Traveler<30days: No Traveled to known affect area: No History of Present Illness HPI This is a 51-year-old female here with right hip pain 4 days. Patient cannot recall specific injury. She reports the pain has steadily increased making weightbearing difficult. Eyes to the right hip and radiates down into her thigh. Worse with weightbearing and range of motion slightly relieved with rest. Symptom severity is moderate. PFSH Past Medical History Hx Anticoagulant Therapy: Yes (asa) Asthma: No Autoimmune Disease: No Blood Disorders: No Anxiety: Yes Depression: No Heart Rhythm Problems: Yes (INTERMITTENT A-FIB) Cancer: No Cardiac Catheterization: Yes Cardiovascular Problems: Yes (PT STATES SHE TENDS TO HAVE HYPOTENSION ) High Cholesterol: No Chemotherapy: No Chest Pain: No Congestive Heart Failure: No COPD: No Cerebrovascular Accident: No Diabetes: Yes Diminished Hearing: No Endocrine: No Gastrointestinal Disorders: Yes (gerd) GERD: Yes Genitourinary: Yes (RECURRENT UPPER UTI) Headaches: Yes Hiatal Hernia: No Hypertension: No Immune Disorder: No Implanted Vascular Access Dvce: No Kidney Stones: No Musculoskeletal: No Neurologic: Yes (VERTIGO ) Psychiatric: No Reproductive: No Respiratory: No Immunizations Current: No Migraines: Yes Myocardial Infarction: No Radiation Therapy: No Sleep Apnea: No Thyroid Disease: No Ulcer: No ?: Not Menopausal: Yes : 3 Para: 3 Tubal Ligation: Yes Past Surgical History Abdominal Surgery: Yes (EXPLORATORY FOR A MASS IN ABDOMEN) Cardiac Surgery: Yes (CATH, NO STENT. ARTERY OCCLUSION IN RIGHT FOREARM) Section: No Coronary Artery Bypass Graft: Yes Ear Surgery: No Endocrine Surgery: No Eye Surgery: No Genitourinary Surgery: No Gynecologic Surgery: Yes (OOPHERECTOMY 1998) Hysterectomy: Yes Insulin Pump: No Neurologic Surgery: No Oral Surgery: No Thoracic Surgery: No Other Surgery: Yes (TUBAL LIGATION 1990) Social History Alcohol Use: No Tobacco Use: No Substance Use: No Allergies-Medications (Allergen,Severity, Reaction): Coded Allergies: chocolate flavor (Unverified Allergy, Severe, Anaphylaxis, 04/22/17) Chocolate vancomycin (Unverified Allergy, Severe, ITCH AND FEELS HOT STS LIKE RED MAN SYNDROME, 04/22/17) Reported Meds & Prescriptions Reported Meds & Active Scripts Active Glucophage (Metformin HCl) 500 Mg Tab 1,000 Mg PO BID 30 Days Oli Contour Blood Glucose Strips (Blood Glucose Test Strips) Strip Strip 1 Strip .ROUTE BID Glipizide 5 Mg Tab 5 Mg PO BIDAC Take 30 minutes before a meal Omeprazole 40 Mg Cap 40 Mg PO DAILY Physical Exam Narrative GENERAL: Alert and well-appearing 51 female. No distress. SKIN: Warm and dry. HEAD: Atraumatic. Normocephalic. EYES: No injection or drainage. NECK: Supple CARDIOVASCULAR: Regular rate and rhythm. RESPIRATORY: No accessory muscle use. Clear to auscultation. Breath sounds equal bilaterally. GASTROINTESTINAL: Abdomen soft, non-tender, nondistended. MUSCULOSKELETAL: Extremities without clubbing, cyanosis, or edema. No obvious deformities. + Tenderness to palpation of the right anterior lateral hip. Pain with external rotation and flexion of the hip. No deformity. 2+ distal pulses. No extremity swelling. Normal sensation. Brisk cap refill. Data Data Last Documented VS Vital Signs Date Time Temp Pulse Resp B/P (MAP) Pulse Ox O2 Delivery O2 Flow Rate FiO2 04/22/17 12:56 98.2 84 16 133/81 (98) 99 Orders Orders Hip, Uni(Ap&Lat) W Ap Pelvis (04/22/17 ) MDM Medical Decision Making Medical Screen Exam Complete: Yes Emergency Medical Condition: Yes Differential Diagnosis Hip fracture, hip strain, pelvic fracture Narrative Course This is a 51-year-old female here with right hip pain 3 days. The extremity is neurovascularly intact. She has tenderness in the anterior lateral aspect of the hip. Worse with movement and twisting motion. X-ray right hip: Negative for fracture Findings discussed with patient. She'll be treated for hip sprain. She was given injection of Toradol. She reports symptom improvement. He is to follow- up with her primary doctor. Diagnosis Primary Impression: Strain of right hip Qualified Codes: S76.011A - Strain of muscle, fascia and tendon of right hip, initial encounter Referrals: Primary Care Physician Additional Instructions: Medications as directed. Muscle relaxer as needed for muscle spasm. Follow-up with her primary doctor. Scripts Methocarbamol (Robaxin) 750 Mg Tab 750 MG PO QID for Muscle Spasm, #12 TAB 0 Refills Prov: Payton Vu 04/22/17 Ibuprofen (Ibuprofen) 800 Mg Tab 800 MG PO Q6HR Y for PAIN, #40 TAB 0 Refills Prov: Payton Vu 04/22/17 Disposition: 01 DISCHARGE HOME Condition: Stable Payton Vu Apr 22, 2017 15:14
[2017-04-22] MEDS ORDERED: IBUP1TAB7 PO (15:18)
[2017-04-22] MEDS ORDERED: ROBA750T PO (15:18)
[2017-04-22] MEDS ORDERED: KETOROLAC TROMETHAMINE 60 MG/2 ML (IM) VIAL IM ONE (15:30)
--- NOTE | 2017-04-22 15:41 | RADRPT ---
EXAM DATE/TIME: 04/22/2017 14:44 [facility] COMPARISON: No previous studies available for comparison. INDICATIONS : Right hip pain in groin area, no known injury. MEDICAL HISTORY : Cardiovascular disease. SURGICAL HISTORY : Hysterectomy. ENCOUNTER: Initial ACUITY: 1 day PAIN SCORE: 10/10 LOCATION: Right hip FINDINGS: Examination of the right hip was performed with AP Pelvis. The primary and secondary trabecular hernandez chad of the femoral neck is intact. The hip joint is of normal width without significant sclerosis or bony hypertrophy. The acetabulum is grossly intact. CONCLUSION: Negative exam. Pedro Napoles MD on April 22, 2017 at 15:30 Board Certified Radiologist. This report was verified electronically.
== END 2017-04-22 15:43 | disposition home or self-care (01) ==
LOC: NEPK 12:54
DX: S76.011A Strain of muscle, fascia and tendon of right hip, initial encounter (principal); E11.9 Type 2 diabetes mellitus without complications; K21.9 Gastro-esophageal reflux disease without esophagitis; X58.XXXA Exposure to other specified factors, initial encounter; Z79.84 Long term (current) use of oral hypoglycemic drugs
CPT/HCPCS: 73502; 99283; E0113

== ENCOUNTER 2017-06-28 15:49 | Emergency (ER) | payer SELFPAY ==
[~2017-06-28] VITALS: Ht 165.1 cm; Wt 109.0 kg
[~2017-06-28 15:49] MED LIST changes: -CIPR-9 PO; +IBUP1TAB7 PO; -METF500T PO; +ROBA750T PO
[2017-06-28 16:05] VITALS: BP 133/77; PULSE 68; RESP 18; TEMP 97.6; O2SAT 98
[2017-06-28] MEDS ORDERED: SODIUM CHLOR 0.9% 1000 ML INJ 1,000 ML IV ONE (17:43)
[2017-06-28] MEDS ORDERED: KETOROLAC TROMETHAMINE 30 MG/ML (IVP) VIAL IV PUSH ONE (17:45)
[2017-06-28] MEDS ORDERED: ONDANSETRON HCL 4 MG/2 ML VIAL IVP ONE (17:45)
--- NOTE | 2017-06-28 17:48 | PD ---
HPI Chief Complaint: Urogynaecologist Problem/Complaint Time Seen by Provider: 17:27 Travel History International Travel<30 days: No Contact w/Intl Traveler<30days: No Traveled to known affect area: No History of Present Illness HPI The patient is a 52-year-old female who presents to the emergency department for 3 weeks of perivaginal irritation, itching, discharge. The patient describes a discharges occasionally thin, occasionally thick, and white to yellow in color. She also complains of some itching and irritation in the perivaginal area. 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 The patient has similar symptoms in January 2017 and was diagnosed with sepsis secondary to urinary tract infection. She does complain of burning with irritation on urination, but thinks it is secondary to the irritation in the perivaginal area. She does complain of a headache, mild nausea, but denies any significant abdominal pain or diarrhea. She does note subjective fevers at home that have been intermittent, did take Tylenol prior to arrival, after work. Symptoms are moderate. PFSH Past Medical History Hx Anticoagulant Therapy: Yes (asa) Asthma: No Autoimmune Disease: No Blood Disorders: No Anxiety: Yes Depression: No Heart Rhythm Problems: Yes (INTERMITTENT A-FIB) Cancer: No Cardiac Catheterization: Yes Cardiovascular Problems: Yes High Cholesterol: No Chemotherapy: No Chest Pain: No Congestive Heart Failure: No COPD: No Cerebrovascular Accident: No Diabetes: Yes Patient Takes Glucophage: No Diminished Hearing: No Endocrine: No Gastrointestinal Disorders: Yes (gerd) GERD: Yes Genitourinary: Yes (RECURRENT UPPER UTI) Headaches: Yes Hiatal Hernia: No Hypertension: No Immune Disorder: No Implanted Vascular Access Dvce: No Kidney Stones: No Musculoskeletal: No Neurologic: Yes (VERTIGO ) Psychiatric: No Reproductive: No Respiratory: No Immunizations Current: No Migraines: Yes Myocardial Infarction: No Radiation Therapy: No Sleep Apnea: No Thyroid Disease: No Ulcer: No ?: Not Menopausal: Yes : 3 Para: 3 Tubal Ligation: Yes Past Surgical History Abdominal Surgery: Yes (EXPLORATORY FOR A MASS IN ABDOMEN) Cardiac Surgery: Yes (CATH, NO STENT. ARTERY OCCLUSION IN RIGHT FOREARM) Section: No Coronary Artery Bypass Graft: Yes Ear Surgery: No Endocrine Surgery: No Eye Surgery: No Genitourinary Surgery: No Gynecologic Surgery: Yes (OOPHERECTOMY 1998) Hysterectomy: Yes Insulin Pump: No Neurologic Surgery: No Oral Surgery: No Thoracic Surgery: No Other Surgery: Yes (TUBAL LIGATION 1990) Social History Alcohol Use: No Tobacco Use: No Substance Use: No Allergies-Medications (Allergen,Severity, Reaction): Coded Allergies: chocolate flavor (Unverified Allergy, Severe, Anaphylaxis, 06/28/17) Chocolate vancomycin (Unverified Allergy, Severe, ITCH AND FEELS HOT STS LIKE RED MAN SYNDROME, 06/28/17) Reported Meds & Prescriptions Reported Meds & Active Scripts Active Robaxin (Methocarbamol) 750 Mg Tab 750 Mg PO QID Ibuprofen 800 Mg Tab 800 Mg PO Q6HR PRN Glucophage (Metformin HCl) 500 Mg Tab 1,000 Mg PO BID 30 Days S B E Contour Blood Glucose Strips (Blood Glucose Test Strips) Strip Strip 1 Strip .ROUTE BID Glipizide 5 Mg Tab 5 Mg PO BIDAC Take 30 minutes before a meal Omeprazole 40 Mg Cap 40 Mg PO DAILY Review of Systems Except as stated in HPI: all other systems reviewed are Neg General / Constitutional: Positive: Fever (Subjective), Other (Generalized malaise and fatigue) HENT: Positive: Headaches Cardiovascular: No: Chest Pain or Discomfort Respiratory: No: Shortness of Breath Gastrointestinal: Positive: Nausea, No: Vomiting, Diarrhea, Abdominal Pain Genitourinary: Positive: Dysuria, Discharge Skin: Positive Itching Physical Exam Narrative GENERAL: Awake, alert, pleasant 52-year-old female who appears her stated age and is in no acute respiratory distress. SKIN: Focused skin assessment warm/dry. HEAD: Atraumatic. Normocephalic. EYES: No injection or drainage. ENT: No nasal bleeding or discharge. Mucous membranes pink and moist. NECK: Trachea midline. No JVD. CARDIOVASCULAR: Regular rate and rhythm. No murmur appreciated. RESPIRATORY: No accessory muscle use. Clear to auscultation. Breath sounds equal bilaterally. GASTROINTESTINAL: Abdomen soft, obese with visible stria. Well-healed midline surgical scar. Back: No CVA tenderness. Genitourinary: A pelvic exam was completed in the presence of a female nurse. The external examination reveals a well-demarcated erythematous rash that is in the perivaginal to perianal area consistent with yeast infection. Speculum examination reveals a blind cuff, thick white discharge in the vaginal vault. MUSCULOSKELETAL: No obvious deformities. No clubbing. No cyanosis. No edema. NEUROLOGICAL: Awake and alert. No obvious cranial nerve deficits. Motor grossly within normal limits. Normal speech. PSYCHIATRIC: Appropriate mood and affect; insight and judgment normal. Data Data Last Documented VS Vital Signs Date Time Temp Pulse Resp B/P (MAP) Pulse Ox O2 Delivery O2 Flow Rate FiO2 06/28/17 16:05 97.6 68 18 133/77 (95) 98 Orders Orders Complete Blood Count With Diff (06/28/17 17:43) Comprehensive Metabolic Panel (06/28/17 17:43) Wet Prep Profile (06/28/17 17:43) Urinalysis - C+S If Indicated (06/28/17 17:43) Sodium Chlor 0.9% 1000 Ml Inj (Ns 1000 M (06/28/17 17:43) Ondansetron Inj (Zofran Inj) (06/28/17 17:45) Ketorolac Inj (Toradol Inj) (06/28/17 17:45) Urine Culture (06/28/17 18:00) Sulfamet-Trimeth Ds 800-160 Mg (Bactrim (06/28/17 19:15) Labs Laboratory Tests Test 06/28/17 18:00 06/28/17 18:15 White Blood Count 6.4 TH/MM3 Red Blood Count 5.88 MIL/MM3 Hemoglobin 16.9 GM/DL Hematocrit 48.9 % Mean Corpuscular Volume 83.2 FL Mean Corpuscular Hemoglobin 28.7 PG Mean Corpuscular Hemoglobin Concent 34.5 % Red Cell Distribution Width 13.2 % Platelet Count 271 TH/MM3 Mean Platelet Volume 8.4 FL Neutrophils (%) (Auto) 57.6 % Lymphocytes (%) (Auto) 34.0 % Monocytes (%) (Auto) 6.9 % Eosinophils (%) (Auto) 1.1 % Basophils (%) (Auto) 0.4 % Neutrophils # (Auto) 3.7 TH/MM3 Lymphocytes # (Auto) 2.2 TH/MM3 Monocytes # (Auto) 0.4 TH/MM3 Eosinophils # (Auto) 0.1 TH/MM3 Basophils # (Auto) 0.0 TH/MM3 CBC Comment AUTO DIFF Differential Comment AUTO DIFF CONFIRMED Urine Color LIGHT-YELLOW Urine Turbidity CLEAR Urine pH 5.5 Urine Specific Sylvia 1.046 Urine Protein NEG mg/dL Urine Glucose (UA) 1000 mg/dL Urine Ketones NEG mg/dL Urine Occult Blood NEG Urine Nitrite POS Urine Bilirubin NEG Urine Urobilinogen LESS THAN 2.0 MG/DL Urine Leukocyte Esterase NEG Urine RBC 1 /hpf Urine WBC 9 /hpf Urine Squamous Epithelial Cells 3 /hpf Urine Bacteria MANY /hpf Urine Mucus FEW /lpf Urine Yeast (Budding) OCC Microscopic Urinalysis Comment CULTURE INDICATED Blood Urea Nitrogen 9 MG/DL Creatinine 0.82 MG/DL Random Glucose 316 MG/DL Total Protein 8.1 GM/DL Albumin 3.7 GM/DL Calcium Level 9.2 MG/DL Alkaline Phosphatase 166 U/L Aspartate Amino Transf (AST/SGOT) 63 U/L Alanine Aminotransferase (ALT/SGPT) 49 U/L Total Bilirubin 0.6 MG/DL Sodium Level 134 MEQ/L Potassium Level MEQ/L Chloride Level 101 MEQ/L Carbon Dioxide Level 26.5 MEQ/L Anion Gap 7 MEQ/L Estimat Glomerular Filtration Rate 73 ML/MIN Clue Cells (Wet Prep) NONE SEEN Vaginal Trichomonas (Wet Prep) NONE SEEN Vaginal Yeast (Wet Prep) NONE SEEN MDM Medical Decision Making Medical Screen Exam Complete: Yes Emergency Medical Condition: Yes Medical Record Reviewed: Yes Interpretation(s) Laboratory Tests Test 06/28/17 18:00 06/28/17 18:15 White Blood Count 6.4 TH/MM3 Red Blood Count 5.88 MIL/MM3 Hemoglobin 16.9 GM/DL Hematocrit 48.9 % Mean Corpuscular Volume 83.2 FL Mean Corpuscular Hemoglobin 28.7 PG Mean Corpuscular Hemoglobin Concent 34.5 % Red Cell Distribution Width 13.2 % Platelet Count 271 TH/MM3 Mean Platelet Volume 8.4 FL Neutrophils (%) (Auto) 57.6 % Lymphocytes (%) (Auto) 34.0 % Monocytes (%) (Auto) 6.9 % Eosinophils (%) (Auto) 1.1 % Basophils (%) (Auto) 0.4 % Neutrophils # (Auto) 3.7 TH/MM3 Lymphocytes # (Auto) 2.2 TH/MM3 Monocytes # (Auto) 0.4 TH/MM3 Eosinophils # (Auto) 0.1 TH/MM3 Basophils # (Auto) 0.0 TH/MM3 CBC Comment AUTO DIFF Differential Comment AUTO DIFF CONFIRMED Urine Color LIGHT-YELLOW Urine Turbidity CLEAR Urine pH 5.5 Urine Specific Sylvia 1.046 Urine Protein NEG mg/dL Urine Glucose (UA) 1000 mg/dL Urine Ketones NEG mg/dL Urine Occult Blood NEG Urine Nitrite POS Urine Bilirubin NEG Urine Urobilinogen LESS THAN 2.0 MG/DL Urine Leukocyte Esterase NEG Urine RBC 1 /hpf Urine WBC 9 /hpf Urine Squamous Epithelial Cells 3 /hpf Urine Bacteria MANY /hpf Urine Mucus FEW /lpf Urine Yeast (Budding) OCC Microscopic Urinalysis Comment CULTURE INDICATED Blood Urea Nitrogen 9 MG/DL Creatinine 0.82 MG/DL Random Glucose 316 MG/DL Total Protein 8.1 GM/DL Albumin 3.7 GM/DL Calcium Level 9.2 MG/DL Alkaline Phosphatase 166 U/L Aspartate Amino Transf (AST/SGOT) 63 U/L Alanine Aminotransferase (ALT/SGPT) 49 U/L Total Bilirubin 0.6 MG/DL Sodium Level 134 MEQ/L Potassium Level MEQ/L Chloride Level 101 MEQ/L Carbon Dioxide Level 26.5 MEQ/L Anion Gap 7 MEQ/L Estimat Glomerular Filtration Rate 73 ML/MIN Clue Cells (Wet Prep) NONE SEEN Vaginal Trichomonas (Wet Prep) NONE SEEN Vaginal Yeast (Wet Prep) NONE SEEN Differential Diagnosis Differential diagnosis includes vaginitis, UTI, trichomonas, bacterial vaginosis , yeast infection, sepsis, cellulitis, herpes. Narrative Course IV was established, labs are drawn and sent, and the patient was placed on cardiac telemetry monitoring and continuous pulse oximetry monitoring. A UA was sent to lab. The patient was administered Toradol, Zofran, and IV fluids. A pelvic exam was completed in the presence of a female nurse. The patient's white count is normal, hemoglobin is slightly elevated, likely secondary to hemoconcentration. The patient's UA does reveal nitrates, WBCs, and bacteria with yeast. Wet prep is negative. The patient does have a UTI, will probable underlying yeast infection as well as candidal yeast infection. T I reviewed the patient's EMR, her last UTI was E. coli that was pansensitive, therefore, patient will be placed on Bactrim twice a day, Diflucan 1 at the end of treatment, and an antifungal lotion. Diagnosis Primary Impression: UTI (urinary tract infection) Qualified Codes: N30.00 - Acute cystitis without hematuria Additional Impression: Yeast infection involving the vagina and surrounding area Referrals: [facility] call for appointment Patient Instructions: General Instructions Additional Instructions: Please provide the patient a copy of her labs at discharge. Medications as directed. Follow-up with a primary physician. Med/Other Pt SpecificInfo: Prescription(s) given Scripts Clotrimazole Topical (Clotrimazole Anti-Fungal Topical) 1% Cream 1 APPLIC TOPICAL BID for Fungal Infection, #1 TUBE 0 Refills Prov: Alok Gabriel MD 06/28/17 Sulfamethoxazole-Trimethoprim (Bactrim DS) 800-160 Mg Tab 1 TAB PO BID for Infection, #14 TAB 0 Refills Prov: Alok Gabriel MD 06/28/17 Fluconazole (Diflucan) 150 Mg Tab 150 MG PO ONCE for Infection, #1 TAB 0 Refills Prov: Alok Gabriel MD 06/28/17 Disposition: 01 DISCHARGE HOME Condition: Stable Alok Gabriel MD Jun 28, 2017 17:48
[2017-06-28 18:30] LABS: BACTERIA, URINE MANY /hpf; BILIRUBIN, URINE NEG (NEG); BLOOD, URINE NEG (NEG); GLUCOSE,URINE 1000 mg/dL (NEG); KETONE, URINE NEG (NEG); MUCUS URINE FEW /lpf (OCC); NITRITE,URINE POS (NEG); PH, URINE 5.5 (5.0-8.5); SQUAMOUS EPITHELIAL CELL URINE 3 /hpf (0-5); URINE COLOR LIGHT-YELLOW (YELLW/STRAW); URINE LEUKOCYTE ESTERASE NEG (NEG)
[2017-06-28 18:38] LABS: AUTOMATED NEUTROPHIL # 3.7 TH/MM3 (1.8-7.7); BASOPHIL % 0.4 % (0.0-2.0); EOSINOPHIL # 0.1 TH/MM3 (0-0.4); EOSINOPHIL % 1.1 % (0.0-4.0); HEMATOCRIT 48.9 % (35.0-46.0); HEMOGLOBIN 16.9 GM/DL (11.6-15.3); LYMPHOCYTE # 2.2 TH/MM3 (1.0-4.8); MEAN CELL VOLUME 83.2 FL (80.0-100.0); MEAN CORPUSCULAR HEMOGLOBIN 28.7 PG (27.0-34.0); MEAN CORPUSCULAR HGB CONC 34.5 % (32.0-36.0); MEAN PLATELET VOLUME 8.4 FL (7.0-11.0); MONO % 6.9 % (0.0-8.0); MONOCYTE # 0.4 TH/MM3 (0-0.9); NEUT % 57.6 % (16.0-70.0); PLATELET COUNT 271 TH/MM3 (150-450); RED BLOOD COUNT 5.88 MIL/MM3 (4.00-5.30); RED CELL DISTRIBUTION WIDTH 13.2 % (11.6-17.2); WHITE BLOOD COUNT 6.4 TH/MM3 (4.0-11.0)
[2017-06-28 18:55] LABS: ALBUMIN 3.7 GM/DL (3.4-5.0); ALT (GPT) 49 U/L (10-53); AST (GOT) 63 U/L (15-37); BICARBONATE 26.5 MEQ/L (21.0-32.0); BLOOD UREA NITROGEN 9 MG/DL (7-18); CALCIUM 9.2 MG/DL (8.5-10.1); CHLORIDE 101 MEQ/L (98-107); CREATININE 0.82 MG/DL (0.50-1.00); GLOMERULAR FILTRATION RATE 73 ML/MIN (>89); GLUCOSE,RANDOM 316 MG/DL (74-106); SODIUM (NA) 134 MEQ/L (136-145)
[2017-06-28 18:57] LABS: ALKALINE PHOSPHATASE 166 U/L (45-117); TOTAL BILIRUBIN ADULT 0.6 MG/DL (0.2-1.0); TOTAL PROTEIN 8.1 GM/DL (6.4-8.2)
[2017-06-28] MEDS ORDERED: SULFAMETHOXAZOLE-TRIMETHOPRIM DS 800-160 MG TAB PO ONE (19:15)
[2017-06-28] MEDS ORDERED: CLOT1CRE6 TOPICAL (19:18)
[2017-06-28] MEDS ORDERED: BACT800T5 PO (19:18)
[2017-06-28] MEDS ORDERED: DIFL150T PO (19:18)
[2017-06-28 20:06] VITALS: BP 106/59
== END 2017-06-28 20:08 | disposition home or self-care (01) ==
LOC: NEPD 15:49
DX: N30.00 Acute cystitis without hematuria (principal); B37.3 Candidiasis of vulva and vagina; K21.9 Gastro-esophageal reflux disease without esophagitis; E11.9 Type 2 diabetes mellitus without complications; Z79.84 Long term (current) use of oral hypoglycemic drugs
CPT/HCPCS: 80053; 81001; 85025; 87077; 87086; 87186; 87210; 96361; 96374; 96375; 99284; J1885; J2405; J7030

== ENCOUNTER 2017-08-26 06:26 | Emergency (ER) | payer SELFPAY ==
[~2017-08-26] VITALS: Ht 165.1 cm; Wt 95.0 kg
[~2017-08-26 06:26] MED LIST changes: +BACT800T5 PO; +CLOT1CRE6 TOPICAL; +DIFL150T PO
[2017-08-26 06:32] VITALS: BP 129/65; PULSE 80; RESP 20; TEMP 98.1
[2017-08-26] MEDS ORDERED: ASPI81CH6 CHEW (06:33)
--- NOTE | 2017-08-26 07:17 | PD ---
HPI Chief Complaint: Injury Time Seen by Provider: 07:08 Travel History International Travel<30 days: No Contact w/Intl Traveler<30days: No Traveled to known affect area: No History of Present Illness HPI 52-year-old female presents emergency department left wrist pain. Patient states she was clearing some brush 3 days ago, when her left wrist got "caught between 2 trees". She states since that time the pain has persisted despite using ice, ibuprofen and Tylenol. She states it is worse with twisting the wrist. She denies numbness, tingling, or significant swelling. Her pain is rated as a 6 out of 10. She has no other injury complaints. She is allergic to chocolate flavor and vancomycin. PFSH Past Medical History Hx Anticoagulant Therapy: Yes (asa) Asthma: No Autoimmune Disease: No Blood Disorders: No Anxiety: Yes Depression: No Heart Rhythm Problems: Yes (INTERMITTENT A-FIB) Cancer: No Cardiac Catheterization: Yes Cardiovascular Problems: Yes High Cholesterol: No Chemotherapy: No Chest Pain: No Congestive Heart Failure: No COPD: No Cerebrovascular Accident: No Diabetes: Yes Patient Takes Glucophage: Yes Diminished Hearing: No Endocrine: No Gastrointestinal Disorders: Yes (gerd) GERD: Yes Genitourinary: Yes (RECURRENT UPPER UTI) Headaches: Yes Hiatal Hernia: No Hypertension: No Immune Disorder: No Implanted Vascular Access Dvce: No Kidney Stones: No Musculoskeletal: No Neurologic: Yes (VERTIGO ) Psychiatric: No Reproductive: No Respiratory: No Immunizations Current: No Migraines: Yes Myocardial Infarction: No Radiation Therapy: No Sleep Apnea: No Thyroid Disease: No Ulcer: No Tetanus Vaccination: < 5 Years Influenza Vaccination: Yes ?: Not Menopausal: Yes : 3 Para: 3 Tubal Ligation: Yes Past Surgical History Abdominal Surgery: Yes (EXPLORATORY FOR A MASS IN ABDOMEN) Cardiac Surgery: Yes (CATH, NO STENT. ARTERY OCCLUSION IN RIGHT FOREARM) Section: No Coronary Artery Bypass Graft: Yes Ear Surgery: No Endocrine Surgery: No Eye Surgery: No Genitourinary Surgery: No Gynecologic Surgery: Yes (OOPHERECTOMY 1998) Hysterectomy: Yes Insulin Pump: No Neurologic Surgery: No Oral Surgery: No Thoracic Surgery: No Other Surgery: Yes (TUBAL LIGATION 1990) Social History Alcohol Use: No Tobacco Use: No Substance Use: No Allergies-Medications (Allergen,Severity, Reaction): Coded Allergies: chocolate flavor (Unverified Allergy, Severe, Anaphylaxis, 08/26/17) Chocolate vancomycin (Unverified Allergy, Severe, ITCH AND FEELS HOT STS LIKE RED MAN SYNDROME, 08/26/17) Reported Meds & Prescriptions Reported Meds & Active Scripts Active Ibuprofen 800 Mg Tab 800 Mg PO Q8H PRN Glucophage (Metformin HCl) 500 Mg Tab 1,000 Mg PO BID 30 Days Oli Contour Blood Glucose Strips (Blood Glucose Test Strips) Strip Strip 1 Strip .ROUTE BID Glipizide 5 Mg Tab 5 Mg PO BIDAC Take 30 minutes before a meal Omeprazole 40 Mg Cap 40 Mg PO DAILY Reported Aspirin Low Dose (Aspirin) 81 Mg Chew 81 Mg CHEW DAILY Review of Systems Except as stated in HPI: all other systems reviewed are Neg General / Constitutional: No: Fever Eyes: No: Visual changes HENT: No: Headaches Cardiovascular: No: Chest Pain or Discomfort Respiratory: No: Shortness of Breath Gastrointestinal: No: Abdominal Pain Genitourinary: No: Dysuria Musculoskeletal: Positive: Myalgias, Arthralgias, Limited ROM, Pain Skin: No Rash Neurologic: No: Weakness Psychiatric: No: Depression Endocrine: No: Polydipsia Hematologic/Lymphatic: No: Easy Bruising Physical Exam Narrative GENERAL: Patient appears in no obvious distress. SKIN: Warm and dry. Normal color. Normal turgor. HEAD: Atraumatic. Normocephalic. EYES: Pupils equal and round. No scleral icterus. No injection or drainage. ENT: No nasal bleeding or discharge. Mucous membranes pink and moist. Pharynx is clear. Airways patent. NECK: Trachea midline. Supple and nontender. CARDIOVASCULAR: Regular rate and rhythm. RESPIRATORY: No accessory muscle use. Clear to auscultation. Breath sounds equal bilaterally. GASTROINTESTINAL: Abdomen soft, non-tender, nondistended. Hepatic and splenic margins not palpable. MUSCULOSKELETAL: Extremities without clubbing, cyanosis, or edema. No obvious deformities. Patient has tenderness along the dorsal surface of the left wrist , worse with movement and palpation. 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 Neurovascular exam is normal in the left wrist and fingers. No significant swelling is noted. No ecchymosis is noted. NEUROLOGICAL: Awake and alert. No obvious cranial nerve deficits. Motor grossly within normal limits. Five out of 5 muscle strength in the arms and legs. Normal speech. PSYCHIATRIC: Appropriate mood and affect; insight and judgment normal. Data Data Last Documented VS Vital Signs Date Time Temp Pulse Resp B/P (MAP) Pulse Ox O2 Delivery O2 Flow Rate FiO2 08/26/17 06:32 98.1 80 20 129/65 (86) Orders Orders Wrist, Complete ([id number]) (08/26/17 07:11) Splint Or Brace Apply/Monitor (08/26/17 08:13) MDM Medical Decision Making Medical Screen Exam Complete: Yes Emergency Medical Condition: Yes Differential Diagnosis Left wrist contusion. Left wrist sprain. Tenosynovitis. Fracture. Narrative Course X-ray of the left wrist is ordered. Ice is applied to the affected area. X-rays show no acute fracture or dislocation. Patient is placed in a Velcro wrist splint. Patient will be treated with ibuprofen 800 mg up to 3 times daily as needed #60. Patient is to use heat, ice, and gentle stretching. Patient should follow-up if symptoms do not improve. Diagnosis Primary Impression: Tenosynovitis of left wrist Patient Instructions: General Instructions, Tendinitis (ED) Additional Instructions: X-rays show no acute fracture or dislocation. Patient is placed in a Velcro wrist splint. Patient will be treated with ibuprofen 800 mg up to 3 times daily as needed #60. Patient is to use heat, ice, and gentle stretching. Patient should follow-up if symptoms do not improve. Med/Other Pt SpecificInfo: Prescription(s) given Scripts Ibuprofen (Ibuprofen) 800 Mg Tab 800 MG PO Q8H Y for Pain/Inflammation, #60 TAB 0 Refills Prov: Brandyn Mcmanus MD 08/26/17 Disposition: 01 DISCHARGE HOME Condition: Stable Alex Hernandez Aug 26, 2017 07:17
--- NOTE | 2017-08-26 08:04 | RADRPT ---
EXAM DATE: 08/26/2017 7:45 AM EDT AGE/SEX: 52 years / Female INDICATIONS: Tree limb fell on wrist Thursday. CLINICAL DATA: This is the patient's initial encounter. Patient reports that signs and symptoms have been present for 3 days and indicates a pain score of 4/10. MEDICAL/SURGICAL HISTORY: Diabetes mellitus type II. None. COMPARISON: No prior [place] exams available for comparison. FINDINGS: Bony structures are intact and in normal alignment. Joints are intact without dislocation or signifi cant arthropathy. Osseous density is normal. Soft tissues are unremarkable. No radiopaque foreign bodies seen. CONCLUSION: Intact left wrist. Electronically signed by: Luis Bates MD 08/26/2017 8:03 AM EDT
[2017-08-26] MEDS ORDERED: IBUP1TAB7 PO (08:33)
== END 2017-08-26 08:50 | disposition home or self-care (01) ==
LOC: NEPD 06:26
DX: M65.9 Synovitis and tenosynovitis, unspecified (principal); E11.9 Type 2 diabetes mellitus without complications; K21.9 Gastro-esophageal reflux disease without esophagitis; Z79.82 Long term (current) use of aspirin; Z79.84 Long term (current) use of oral hypoglycemic drugs
CPT/HCPCS: 73110; 99283; L3908

== ENCOUNTER 2017-09-01 15:46 | Observation (INO) | payer SELFPAY ==
[~2017-09-01] VITALS: Ht 162.6 cm; Wt 110.0 kg
[~2017-09-01 15:46] MED LIST changes: +ASPI81CH6 CHEW; -BACT800T5 PO; -CLOT1CRE6 TOPICAL; -DIFL150T PO; -ROBA750T PO
[2017-09-01 16:18] VITALS: BP 133/69; PULSE 78; RESP 16; TEMP 98.1; O2SAT 99
--- NOTE | 2017-09-01 17:08 | RADRPT ---
EXAM DATE: 09/01/2017 4:56 PM EDT AGE/SEX: 52 years / Female INDICATIONS: Short of breath, pain to anterior chest. CLINICAL DATA: This is the patient's initial encounter. Patient reports that signs and symptoms have been present for 1 day and indicates a pain score of 4/10. MEDICAL/SURGICAL HISTORY: None. None. COMPARISON: [facility] [place], [place]ST PA & LAT, 11/22/2014. . FINDINGS: PA and lateral views of the chest demonstrate the lungs to be symmetrically aerated without evidence of mass, infiltrate or effusion. The cardiomediastinal contours are unremarkable. Osseous structures are intact. CONCLUSION: Negative examination. Electronically signed by: Girma Toth MD 09/01/2017 5:07 PM EDT
[2017-09-01 18:00] LABS: AUTOMATED NEUTROPHIL # 4.4 TH/MM3 (1.8-7.7); BASOPHIL % 0.3 % (0.0-2.0); EOSINOPHIL # 0.2 TH/MM3 (0-0.4); EOSINOPHIL % 2.4 % (0.0-4.0); HEMATOCRIT 45.3 % (35.0-46.0); HEMOGLOBIN 15.7 GM/DL (11.6-15.3); LYMPH % 29.4 % (9.0-44.0); LYMPHOCYTE # 2.1 TH/MM3 (1.0-4.8); MEAN CELL VOLUME 83.7 FL (80.0-100.0); MEAN CORPUSCULAR HGB CONC 34.6 % (32.0-36.0); MEAN PLATELET VOLUME 8.4 FL (7.0-11.0); MONO % 8.3 % (0.0-8.0); MONOCYTE # 0.6 TH/MM3 (0-0.9); NEUT % 59.6 % (16.0-70.0); PLATELET COUNT 259 TH/MM3 (150-450); RED BLOOD COUNT 5.41 MIL/MM3 (4.00-5.30); WHITE BLOOD COUNT 7.3 TH/MM3 (4.0-11.0)
[2017-09-01 18:10] LABS: BICARBONATE 24.4 MEQ/L (21.0-32.0); BLOOD UREA NITROGEN 13 MG/DL (7-18); CALCIUM 9.4 MG/DL (8.5-10.1); CHLORIDE 106 MEQ/L (98-107); CREATININE 0.88 MG/DL (0.50-1.00); GLOMERULAR FILTRATION RATE 68 ML/MIN (>89); GLUCOSE,RANDOM 190 MG/DL (74-106); SODIUM (NA) 140 MEQ/L (136-145)
[2017-09-01 18:13] LABS: TROPONIN I LESS THAN 0.02 NG/ML (0.02-0.05)
[2017-09-01] MEDS ORDERED: MORPHINE SULFATE 4 MG/ML INJ IV PUSH ONE (19:00)
[2017-09-01] MEDS ORDERED: PROCHLORPERAZINE INJ 10 MG/2 ML VIAL IV PUSH ONE (19:00)
[2017-09-01] MEDS ORDERED: diphenhydrAMINE HCL 50 MG/ML VIAL IV PUSH ONE (19:00)
[2017-09-01] MEDS ORDERED: ASPIRIN 325 MG TAB PO ONE (19:00)
[2017-09-01] MEDS ORDERED: SODIUM CHLOR 0.9% 1000 ML INJ 1,000 ML IV ONE (19:00)
--- NOTE | 2017-09-01 19:54 | PD ---
HPI Chief Complaint: Headache Time Seen by Provider: 18:40 Travel History International Travel<30 days: No Contact w/Intl Traveler<30days: No Traveled to known affect area: No History of Present Illness HPI 52-year-old female that presents to the ED for evaluation of headache and chest pain. Patient has had a headache since Thursday. Per patient is not getting better. She has a history migraine headaches. She states that this headache is similar to her previous headaches and she has been taking Excedrin for migraines which she usually uses and usually gets her better but this has not improved. She states that today she on top of the headache developed chest pain to raise to her left shoulder. She states that she has had a stress test about a year ago that was negative. She does have a history or high blood pressure and diabetes and is unfortunately noncompliant secondary to not having insurance or medical care. She apparently ran out of medications as she has no providers and has no more refills. She states that her headache is 7 out of 10. Gets worse with lying. Per patient she feels nauseous and vomits as well as has blurry vision which is normal with her migraine headaches. Per patient once in a while she does have to get seen in the ER. Per patient she is never had the chest pain like that before specially no moving to the shoulder. She does suffer from anxiety and attributes some of it to that but she is again never had it on her shoulder before. She states that the pain to the chest this 5 out of 10 feels like a pressure. This is not the worst headache of her life. She denies any thunderclap-like headache. Allergy to vancomycin and chocolate. PFSH Past Medical History Hx Anticoagulant Therapy: Yes (BABY ASA) Asthma: No Autoimmune Disease: No Blood Disorders: No Anxiety: Yes Depression: No Heart Rhythm Problems: Yes (INTERMITTENT A-FIB) Cancer: No Cardiac Catheterization: Yes Cardiovascular Problems: Yes High Cholesterol: No Chemotherapy: No Chest Pain: No Congestive Heart Failure: No COPD: No Cerebrovascular Accident: No Diabetes: Yes Patient Takes Glucophage: Yes Diminished Hearing: No Endocrine: No Gastrointestinal Disorders: Yes (gerd) GERD: Yes Genitourinary: Yes (RECURRENT UPPER UTI) Headaches: Yes Hiatal Hernia: No Hypertension: No Immune Disorder: No Implanted Vascular Access Dvce: No Kidney Stones: No Musculoskeletal: No Neurologic: Yes (VERTIGO ) Psychiatric: No Reproductive: No Respiratory: No Immunizations Current: No Migraines: Yes Myocardial Infarction: No Radiation Therapy: No Sleep Apnea: No Thyroid Disease: No Ulcer: No ?: Not Menopausal: Yes : 3 Para: 3 Tubal Ligation: Yes Past Surgical History Abdominal Surgery: Yes (EXPLORATORY FOR A MASS IN ABDOMEN) Cardiac Surgery: Yes (CATH, NO STENT. ARTERY OCCLUSION IN RIGHT FOREARM) Section: No Coronary Artery Bypass Graft: Yes Ear Surgery: No Endocrine Surgery: No Eye Surgery: No Genitourinary Surgery: No Gynecologic Surgery: Yes (OOPHERECTOMY 1998) Hysterectomy: Yes Insulin Pump: No Neurologic Surgery: No Oral Surgery: No Thoracic Surgery: No Other Surgery: Yes (TUBAL LIGATION 1990) Social History Alcohol Use: No Tobacco Use: No Substance Use: No Allergies-Medications (Allergen,Severity, Reaction): Coded Allergies: chocolate flavor (Unverified Allergy, Severe, Anaphylaxis, 09/01/17) Chocolate vancomycin (Unverified Allergy, Severe, ITCH AND FEELS HOT STS LIKE RED MAN SYNDROME, 09/01/17) Reported Meds & Prescriptions Reported Meds & Active Scripts Active Ibuprofen 800 Mg Tab 800 Mg PO Q8H PRN Glucophage (Metformin HCl) 500 Mg Tab 1,000 Mg PO BID 30 Days Energy Contour Blood Glucose Strips (Blood Glucose Test Strips) Strip Strip 1 Strip .ROUTE BID Glipizide 5 Mg Tab 5 Mg PO BIDAC Take 30 minutes before a meal Omeprazole 40 Mg Cap 40 Mg PO DAILY Reported Aspirin Low Dose (Aspirin) 81 Mg Chew 81 Mg CHEW DAILY Review of Systems Except as stated in HPI: all other systems reviewed are Neg Physical Exam Narrative GENERAL: SKIN: Warm and dry. HEAD: Atraumatic. Normocephalic. EYES: Pupils equal and round. No scleral icterus. No injection or drainage. ENT: No nasal bleeding or discharge. Mucous membranes pink and moist. Tongue is midline. No uvula deviation. NECK: Trachea midline. No JVD. CARDIOVASCULAR: Regular rate and rhythm. No murmurs, S3, S4. RESPIRATORY: No accessory muscle use. Clear to auscultation. Breath sounds equal bilaterally. GASTROINTESTINAL: Abdomen soft, non-tender, nondistended. Hepatic and splenic margins not palpable. MUSCULOSKELETAL: Extremities without clubbing, cyanosis, or edema. No obvious deformities. Full range of motion of the upper and lower extremities bilaterally. 2+ pulses bilaterally. NEUROLOGICAL: Awake and alert. No obvious cranial nerve deficits. Motor grossly within normal limits. Five out of 5 muscle strength in the arms and legs. Normal speech. PSYCHIATRIC: Appropriate mood and affect; insight and judgment normal. Data Data Last Documented VS Vital Signs Date Time Temp Pulse Resp B/P (MAP) Pulse Ox O2 Delivery O2 Flow Rate FiO2 09/01/17 20:24 80 16 125/63 (83) 98 Room Air 09/01/17 16:18 98.1 Orders Orders Electrocardiogram (09/01/17 16:21) Complete Blood Count With Diff (09/01/17 16:21) Basic Metabolic Panel (Bmp) (09/01/17 16:21) Ckmb (Isoenzyme) Profile (09/01/17 16:21) Troponin I (09/01/17 16:21) Chest, Pa & Lat (09/01/17 16:21) Ct Brain W/O Iv Contrast(Rout) (09/01/17 ) Prochlorperazine Inj (Compazine Inj) (09/01/17 19:00) Diphenhydramine Inj (Benadryl Inj) (09/01/17 19:00) Sodium Chlor 0.9% 1000 Ml Inj (Ns 1000 M (09/01/17 19:00) Morphine Inj (Morphine Inj) (09/01/17 19:00) Aspirin (Aspirin) (09/01/17 19:00) Vascular Access Team Consult/P PRN (09/01/17 19:56) Vascular Poc Ultrasound (09/01/17 ) Electrocardiogram (09/01/17 22:35) Admit Order (Ed Use Only) (09/01/17 21:29) Labs Laboratory Tests Test 09/01/17 16:45 White Blood Count 7.3 TH/MM3 Red Blood Count 5.41 MIL/MM3 Hemoglobin 15.7 GM/DL Hematocrit 45.3 % Mean Corpuscular Volume 83.7 FL Mean Corpuscular Hemoglobin 29.0 PG Mean Corpuscular Hemoglobin Concent 34.6 % Red Cell Distribution Width 14.0 % Platelet Count 259 TH/MM3 Mean Platelet Volume 8.4 FL Neutrophils (%) (Auto) 59.6 % Lymphocytes (%) (Auto) 29.4 % Monocytes (%) (Auto) 8.3 % Eosinophils (%) (Auto) 2.4 % Basophils (%) (Auto) 0.3 % Neutrophils # (Auto) 4.4 TH/MM3 Lymphocytes # (Auto) 2.1 TH/MM3 Monocytes # (Auto) 0.6 TH/MM3 Eosinophils # (Auto) 0.2 TH/MM3 Basophils # (Auto) 0.0 TH/MM3 CBC Comment DIFF FINAL Differential Comment Blood Urea Nitrogen 13 MG/DL Creatinine 0.88 MG/DL Random Glucose 190 MG/DL Calcium Level 9.4 MG/DL Sodium Level 140 MEQ/L Potassium Level 4.1 MEQ/L Chloride Level 106 MEQ/L Carbon Dioxide Level 24.4 MEQ/L Anion Gap 10 MEQ/L Estimat Glomerular Filtration Rate 68 ML/MIN Total Creatine Kinase 23 U/L Troponin I LESS THAN 0.02 NG/ML MDM Medical Decision Making Medical Screen Exam Complete: Yes Emergency Medical Condition: Yes Medical Record Reviewed: Yes Interpretation(s) CBC & BMP Diagram 09/01/17 16:45 Calcium Level 9.4 Troponin and CK-MB negative. EKG shows sinus rhythm with no sign of acute ischemia or arrhythmia noted by me and attending. Last Impressions Chest X-Ray 09/01/17 1621 Signed Impressions: CONCLUSION: Negative examination. Head CT 09/01/17 0000 Signed Impressions: CONCLUSION: 1. Negative, no interval change Differential Diagnosis Chest pain versus typical chest pain versus migraine headache versus ACS versus headache Narrative Course 52-year-old female that presents to the ED for evaluation of chest pain and headache. Patient was properly examined and was found to have signs and symptoms consistent with migraine headache. Unclear as to the etiology of the chest pain but cannot completely rule out ACS as she does have risk factors for ACS including diabetes, high blood pressure and family history of heart disease. At this time I recommend labs and imaging. Patient was given full aspirin as well as pain medications for the headache as well as for the chest pain. Patient's pain improved especially with the headache. Patient still complains of some chest discomfort. Labs and imaging were essentially unremarkable. She does have risk factors for heart disease. She had a stress test about a year ago. Because patient does complain of the chest pain and her risk factors my attending recommends admission to chest pain center. Patient agrees with this. Patient was admitted to chest pain center. Diagnosis Primary Impression: Chest pain Qualified Codes: R07.9 - Chest pain, unspecified Additional Impression: Headache Qualified Codes: R51 - Headache Admitting Information Admitting Physician Requests: Observation Mu Hanna Sep 01, 2017 19:54
[2017-09-01 20:24] VITALS: BP 125/63; PULSE 80; RESP 16; O2SAT 98
--- NOTE | 2017-09-01 20:28 | EKG ---
Date Performed: 09/01/2017 Time Performed: 16:35:06 PTAGE: 52 years EKG: Sinus rhythm POSSIBLE RIGHT VENTRICULAR HYPERTROPHY MINIMAL ST DEPRESSION ABNORMAL ECG INTERPRETATION BASED ON A DEFAULT AGE OF 40 YEARS NO PREVIOUS TRACING DOCTOR: Smith Jansen Interpretating Date/Time 09/01/2017 20:27:26
--- NOTE | 2017-09-01 21:16 | PD ---
Data Data Last Documented VS Vital Signs Date Time Temp Pulse Resp B/P (MAP) Pulse Ox O2 Delivery O2 Flow Rate FiO2 09/01/17 20:24 80 16 125/63 (83) 98 Room Air 09/01/17 16:18 98.1 Orders Orders Electrocardiogram (09/01/17 16:21) Complete Blood Count With Diff (09/01/17 16:21) Basic Metabolic Panel (Bmp) (09/01/17 16:21) Ckmb (Isoenzyme) Profile (09/01/17 16:21) Troponin I (09/01/17 16:21) Chest, Pa & Lat (09/01/17 16:21) Ct Brain W/O Iv Contrast(Rout) (09/01/17 ) Prochlorperazine Inj (Compazine Inj) (09/01/17 19:00) Diphenhydramine Inj (Benadryl Inj) (09/01/17 19:00) Sodium Chlor 0.9% 1000 Ml Inj (Ns 1000 M (09/01/17 19:00) Morphine Inj (Morphine Inj) (09/01/17 19:00) Aspirin (Aspirin) (09/01/17 19:00) Vascular Access Team Consult/P PRN (09/01/17 19:56) Vascular Poc Ultrasound (09/01/17 ) Electrocardiogram (09/01/17 22:35) Labs Laboratory Tests Test 09/01/17 16:45 White Blood Count 7.3 TH/MM3 Red Blood Count 5.41 MIL/MM3 Hemoglobin 15.7 GM/DL Hematocrit 45.3 % Mean Corpuscular Volume 83.7 FL Mean Corpuscular Hemoglobin 29.0 PG Mean Corpuscular Hemoglobin Concent 34.6 % Red Cell Distribution Width 14.0 % Platelet Count 259 TH/MM3 Mean Platelet Volume 8.4 FL Neutrophils (%) (Auto) 59.6 % Lymphocytes (%) (Auto) 29.4 % Monocytes (%) (Auto) 8.3 % Eosinophils (%) (Auto) 2.4 % Basophils (%) (Auto) 0.3 % Neutrophils # (Auto) 4.4 TH/MM3 Lymphocytes # (Auto) 2.1 TH/MM3 Monocytes # (Auto) 0.6 TH/MM3 Eosinophils # (Auto) 0.2 TH/MM3 Basophils # (Auto) 0.0 TH/MM3 CBC Comment DIFF FINAL Differential Comment Blood Urea Nitrogen 13 MG/DL Creatinine 0.88 MG/DL Random Glucose 190 MG/DL Calcium Level 9.4 MG/DL Sodium Level 140 MEQ/L Potassium Level 4.1 MEQ/L Chloride Level 106 MEQ/L Carbon Dioxide Level 24.4 MEQ/L Anion Gap 10 MEQ/L Estimat Glomerular Filtration Rate 68 ML/MIN Total Creatine Kinase 23 U/L Troponin I LESS THAN 0.02 NG/ML MDM Medical Record Reviewed: Yes Supervised Visit with ARTURO: Yes Narrative Course I, Dr. Tian, have reviewed the advance practice practitioner's documentation and am in agreement, met with the patient face to face, made the diagnosis, and the medical decision making was done by me. The patient was initially evaluated by britt Dobbins PA. Please see their complete history and physical. *My assessment and Findings: The patient presents with a history of chest pain and headache. The patient's examination is remarkable for having normal cardiac activity on auscultation, regular rate and rhythm without murmurs gallops or rubs. No pulse deficits to the extremities noted on simultaneous palpation and auscultation. No nuchal rigidity. During the course of the patient's emergency department visit, the patient's history, examination, and differential diagnosis were reviewed with the patient. The patient was placed on a cardiac cath tech with oximetry and frequent blood pressure monitoring. The patient was difficult to obtain IV access in. Multiple attempts were made at peripheral IV access. I reassessed the patient and noted a right external jugular vein that appeared to be accessible. On one attempt the patient had a 20-gauge Angiocath placed successfully in the right EJ. The line flushed well and maite well. The patient was initially provided Compazine 10 mg IV, Benadryl 25 mg IV, morphine 4 mg IV, aspirin 325 mg p.o. 1. The patient's laboratory studies were reviewed and remarkable for a white count of 7.3, hemoglobin 15.7, platelets 259, monocytes 8.3, basic metabolic profile is remarkable for glucose of 190, reticulocyte enzymes within normal limits Radiology studies were reviewed and remarkable for a chest x-ray that shows no acute cardiopulmonary disease. The patient will be admitted to the chest pain center regarding her complaints of chest pain with risk factors that include hypertension, obesity, and diabetes mellitus for rule out serial cardiac enzyme protocol followed by consideration of stress testing. The patient's results were discussed with the patient, including the plan of care. I explained that further testing and/ or monitoring is indicated based on the patient's history, examination, and/ or laboratory findings. Therefore, I recommended admission for additional evaluation. The patient expressed understanding and was agreeable with this plan. The patient was admitted to the hospital in stable condition and sent to a bed under the care of the chest pain center. Diagnosis Primary Impression: Chest pain, rule out acute myocardial infarction Additional Impression: Headache Qualified Codes: R51 - Headache Admitting Information Admitting Physician Requests: Sharona Michael MD Sep 01, 2017 21:16
--- NOTE | 2017-09-01 21:29 | RADRPT ---
EXAM DATE: 09/01/2017 9:23 PM EDT AGE/SEX: 52 years / Female INDICATIONS: Migraine starting Thursday. CLINICAL DATA: This is the patient's initial encounter. Patient reports that signs and symptoms have been present for 1 day and indicates a pain score of 8/10. MEDICAL/SURGICAL HISTORY: Cardiovascular disease. Diabetes. None. RADIATION DOSE: 56.35 CTDI (mGy) COMPARISON: [facility] – [place] BRAIN W/O CONTRAST, 07/16/2015. . TECHNIQUE: CT of the head without contrast. Using automated exposure control and adjustment of the mA and/or kV according to patient size, radiation dose was kept as low as reasonably achievable to ob tain optimal diagnostic quality images. FINDINGS: Cerebrum: The ventricles are normal for age. No evidence of midline shift, mass lesion, hemorrhage or acute infarction. No extraaxial fluid collections are seen. Posterior Fossa: The cerebellum and brainstem are intact. The 4th ventricle is midline. The cerebe llopontine angle is unremarkable. Extracranial: The visualized portion of the orbits is intact. Skull: The calvaria is intact. No evidence of skull fracture. CONCLUSION: 1. Negative, no interval change Electronically signed by: Atif George MD 09/01/2017 9:27 PM EDT
[2017-09-01] MEDS ORDERED: ONDANSETRON HCL 4 MG/2 ML VIAL IV PUSH PRN (21:45)
[2017-09-01] MEDS ORDERED: SODIUM CHLORIDE 0.9% FLUSH 10 ML FLUSH IV FLUSH PRN (21:45)
[2017-09-01] MEDS ORDERED: ACETAMINOPHEN 500 MG CPLT PO PRN (21:45)
[2017-09-01 22:31] VITALS: BP 107/64; PULSE 67; RESP 16; TEMP 98.4; O2SAT 99
[2017-09-01 23:23] LABS: TROPONIN I LESS THAN 0.02 NG/ML (0.02-0.05)
[2017-09-02] VITALS (7 sets, daily range): BP systolic 93–116; BP diastolic 55–88; PULSE 61–69; RESP 16–18; TEMP 97.3–98.5; O2SAT 96–97
[2017-09-02 03:53] LABS: TROPONIN I LESS THAN 0.02 NG/ML (0.02-0.05)
[2017-09-02] MEDS ORDERED: DEXTROSE 50% IN WATER 50 ML VIAL(D50) IV PUSH PRN (08:00)
[2017-09-02] MEDS: INSULIN ASPART SUPPLEMENTAL SCALE SQ SCH ×2 (08:00→13:10)
[2017-09-02] MEDS ORDERED: GLUCAGON 1 MG/ML VIAL OTHER PRN (08:00)
[2017-09-02] MEDS ORDERED: PRAV40TA2 PO (08:10)
[2017-09-02] MEDS ORDERED: LISI-519 PO (08:10)
[2017-09-02] MEDS ORDERED: GLIP5TAB8 PO (08:11)
[2017-09-02] MEDS ORDERED: METF500 PO (08:11)
[2017-09-02] MEDS ORDERED: SODIUM CHLORIDE 0.9% FLUSH 10 ML FLUSH IV FLUSH SCH (09:00)
--- NOTE | 2017-09-02 09:19 | HHI.HP ---
HPI Primary Care Physician No Primary Care Physician Chief Complaint Chest pain History of Present Illness This is a 52-year-old female with history of migraines and diabetes that presents to ED with complaint of migraine headache and pain in the entire left side of her body which also includes is her chest pain. This began 8:00 yesterday morning. Headache is been there for 2 days. She states both were relieved after getting IV medication in the ED. I reviewed her records she was given IV morphine and Benadryl. Her symptoms lasted all day long and into the evening. Found nothing to worsen or improve. She was nauseous but states that is not unusual be nauseated with her migraine. She states it was her typical migraine will concerned her was the entire left-sided body ache. There is no weakness. She denies shortness breath or diaphoresis. 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 Upon reviewing records she has had several stress tests at this facility including a nonischemic Lexiscan October 2016. She also states that she had a heart catheterization performed a hospital is located on the left side [place] and really does not know the specifics but the stent was not placed. Currently denies chest discomfort and is not having a headache. Review of Systems General: Patient denies fevers, chills, and recent travel. HEENT: Clinical migraine headache. Patient denies sore throat and, difficulty swallowing. Cardiovascular: Has the chest discomfort as mentioned above. Denies sensation of heart beating rapidly or irregularly. No syncope. Denies diaphoresis. Respiratory: Denies shortness of breath or inspirational chest discomfort. Denies coughing wheezing or hemoptysis. GI: She was nauseous but states that it is not uncommon when she has a migraine. Patient denies nausea, vomiting, diarrhea, abdominal pain, bloody stools. Musculoskeletal: Patient denies joint pain or edema. Denies calf pain or edema. Neurovascular: Complains of her typical migraine headache. Patient denies numbness, tingling, weakness in extremities. Endocrine: Denies polyuria and polydipsia. Hematologic: Denies easy bruising. Skin: Denies rash or itching. Past Family Social History Allergies: Coded Allergies: chocolate flavor (Unverified Allergy, Severe, Anaphylaxis, 09/01/17) Chocolate vancomycin (Unverified Allergy, Severe, ITCH AND FEELS HOT STS LIKE RED MAN SYNDROME, 09/01/17) Past Medical History Diabetes and migraines. Denies hypertension and hyperlipidemia. Denies CAD. Past Surgical History Hysterectomy. Reported Medications Reported Meds & Active Scripts Active Glucophage (Metformin HCl) 500 Mg Tab 1,000 Mg PO BID 30 Days Glipizide 5 Mg Tab 5 Mg PO BIDAC Take 30 minutes before a meal Pravastatin 40 Mg Tab 40 Mg PO DAILY Lisinopril 5 Mg Tab 5 Mg PO DAILY Ibuprofen 800 Mg Tab 800 Mg PO Q8H PRN Oli Contour Blood Glucose Strips (Blood Glucose Test Strips) Strip Strip 1 Strip .ROUTE BID Omeprazole 40 Mg Cap 40 Mg PO DAILY Reported Aspirin Low Dose (Aspirin) 81 Mg Chew 81 Mg CHEW DAILY Active Ordered Medications Current Medications Medications (Trade) Dose Ordered Sig/Diony Route Start Time Stop Time Status Last Admin (NS Flush) 2 ml UNSCH PRN IV FLUSH 09/01/17 21:45 (NS Flush) 2 ml BID IV FLUSH 09/02/17 09:00 (Tylenol) 500 mg Q4H PRN PO 09/01/17 21:45 (Zofran Inj) 4 mg Q6H PRN IV PUSH 09/01/17 21:45 (NovoLOG SUPPLEMENTAL SCALE) 1 ACHS SLIDING SCALE SQ 09/02/17 08:00 (D50w (Vial) Inj) 50 ml UNSCH PRN IV PUSH 09/02/17 08:00 (Glucagon Inj) 1 mg UNSCH PRN OTHER 09/02/17 08:00 Family History States of both parents had MIs in his 60s. Social History Lifetime non-smoker. Physical Exam Vital Signs Vital Signs Date Time Temp Pulse Resp B/P (MAP) Pulse Ox O2 Delivery O2 Flow Rate FiO2 09/02/17 07:54 97.3 64 18 116/65 (82) 97 09/02/17 04:05 61 09/02/17 03:37 98.5 65 16 93/55 (68) 97 09/02/17 00:07 69 09/01/17 23:07 18 09/01/17 22:31 98.4 67 16 107/64 (78) 99 09/01/17 22:18 09/01/17 20:24 80 16 125/63 (83) 98 Room Air 09/01/17 16:18 98.1 78 16 133/69 (90) 99 Physical Exam GENERAL: This is a well-nourished, well-developed patient, in no apparent distress. Patient speaks in clear complete sentences. Patient is pleasant. HEENT: Head is atraumatic and normocephalic. Neck is supple without lymphadenopathy and trachea is midline. No JVD or carotid bruits. CARDIOVASCULAR: Regular rate and rhythm without murmurs, gallops, or rubs. RESPIRATORY: Clear to auscultation. Breath sounds equal bilaterally. No wheezes , rales, or rhonchi. Chest wall is nontender. No use of accessory muscles. GASTROINTESTINAL: Abdomen is nontender, nondistended. Abdomen soft. No obvious pulsatile mass or bruit. No CVA tenderness. Strong femoral pulses bilaterally. Normal bowel sounds in all quadrants. MUSCULOSKELETAL: Patient is moving upper and lower extremities freely. No calf tenderness or edema, no Homans sign. Strong pulses in upper and lower extremities. NEUROLOGICAL: Patient is alert and oriented. Cranial nerves 2-12 are grossly intact. No focal deficits and speech is clear. SKIN: No rash and turgor is normal. Laboratory Laboratory Tests Test 09/01/17 16:45 09/01/17 23:00 09/02/17 02:46 White Blood Count 7.3 Red Blood Count 5.41 Hemoglobin 15.7 Hematocrit 45.3 Mean Corpuscular Volume 83.7 Mean Corpuscular Hemoglobin 29.0 Mean Corpuscular Hemoglobin Concent 34.6 Red Cell Distribution Width 14.0 Platelet Count 259 Mean Platelet Volume 8.4 Neutrophils (%) (Auto) 59.6 Lymphocytes (%) (Auto) 29.4 Monocytes (%) (Auto) 8.3 Eosinophils (%) (Auto) 2.4 Basophils (%) (Auto) 0.3 Neutrophils # (Auto) 4.4 Lymphocytes # (Auto) 2.1 Monocytes # (Auto) 0.6 Eosinophils # (Auto) 0.2 Basophils # (Auto) 0.0 CBC Comment DIFF FINAL Differential Comment Blood Urea Nitrogen 13 Creatinine 0.88 Random Glucose 190 Calcium Level 9.4 Sodium Level 140 Potassium Level 4.1 Chloride Level 106 Carbon Dioxide Level 24.4 Anion Gap 10 Estimat Glomerular Filtration Rate 68 Total Creatine Kinase 23 27 33 Troponin I LESS THAN 0.02 LESS THAN 0.02 LESS THAN 0.02 Result Diagram: 09/01/17 1645 09/01/17 1645 Imaging Last 48 hours Impressions Chest X-Ray 09/01/17 1621 Signed Impressions: CONCLUSION: Negative examination. Head CT 09/01/17 0000 Signed Impressions: CONCLUSION: 1. Negative, no interval change Course EKGs are sinus rhythm without significant ST segment depressions or elevations. Caprini VTE Risk Assessment Caprini VTE Risk Assessment: No/Low Risk (score <= 1) Caprini Risk Assessment Model Point Value = 1 Point Value = 2 Point Value = 3 Point Value = 5 Age 41-60 Minor surgery BMI > 25 kg/m2 Swollen legs Varicose veins or History of unexplained or recurrent spontaneous Oral contraceptives or hormone replacement Sepsis (< 1 month) Serious lung disease, including pneumonia (< 1 month) Abnormal pulmonary function Acute myocardial infarction Congestive heart failure (< 1 month) History of inflammatory bowel disease Medical patient at bed rest Age 61-74 Arthroscopic surgery Major open surgery (> 45 min) Laparoscopic surgery (> 45 min) Malignancy Confined to bed (> 72 hours) Immobilizing plaster cast Central venous access Age >= 75 History of VTE Family history of VTE Factor V Leiden Prothrombin [id number] Lupus anticoagulant Anticardiolipin antibodies Elevated serum homocysteine Heparin-induced thrombocytopenia Other congenital or acquired thrombophilia Stroke (< 1 month) Elective arthroplasty Hip, pelvis, or leg fracture Acute spinal cord injury (< 1 month) Prophylaxis Regimen Total Risk Factor Score Risk Level Prophylaxis Regimen 0-1 Low Early ambulation 2 Moderate Order ONE of the following: *Sequential Compression Device (SCD) *Heparin 5000 units SQ BID 3-4 Higher Order ONE of the following medications: *Heparin 5000 units SQ TID *Enoxaparin/Lovenox 40 mg SQ daily (WT < 150 kg, CrCl > 30 mL/min) *Enoxaparin/Lovenox 30 mg SQ daily (WT < 150 kg, CrCl > 10-29 mL/min) *Enoxaparin/Lovenox 30 mg SQ BID (WT < 150 kg, CrCl > 30 mL/min) AND/OR *Sequential Compression Device (SCD) 5 or more Highest Order ONE of the following medications: *Heparin 5000 units SQ TID (Preferred with Epidurals) *Enoxaparin/Lovenox 40 mg SQ daily (WT < 150 kg, CrCl > 30 mL/min) *Enoxaparin/Lovenox 30 mg SQ daily (WT < 150 kg, CrCl > 10-29 mL/min) *Enoxaparin/Lovenox 30 mg SQ BID (WT < 150 kg, CrCl > 30 mL/min) AND *Sequential Compression Device (SCD) Assessment and Plan Assessment and Plan * Chest pain: Patient has had serial cardiac enzymes and EKGs for ruling out purposes. She was seen by Dr. Alden Lee of cardiology in the chest pain center. She will have a Lexiscan and would be discharged home if the stress test is nonischemic with instructions to follow-up with PCP. * Diabetes: Patient she is about to be on medication. This will be renewed. Also patient should be on an MIRELA inhibitor and a statin with her history of diabetes and she is not on either. This will be started. * Headache: Patient states she has chronic migraines. CT brain reveals nothing acute. Patient will be discharged with instructions to follow-up with a PCP. Patient is stable at this time. She is agreeable to this plan. Oc Acuña Sep 02, 2017 09:19
[2017-09-02] MEDS ORDERED: PANTOPRAZOLE SOD 40 MG DELAYED RELEASE TAB PO SCH (10:00)
[2017-09-02] MEDS ORDERED: REGADENOSON INJ 0.4 MG/5 ML SYR ONE (10:37)
--- NOTE | 2017-09-02 11:24 | EKG ---
Date Performed: 09/01/2017 Time Performed: 22:35:07 PTAGE: 52 years EKG: Sinus rhythm LOW QRS VOLTAGE IN PRECORDIAL LEADS BORDERLINE ECG PREVIOUS TRACING : 09/01/2017 16.35 Since previous tracing, no significant change noted DOCTOR: Alden Lee Interpretating Date/Time 09/02/2017 11:22:37
--- NOTE | 2017-09-02 11:26 | EKG ---
Date Performed: 09/02/2017 Time Performed: 02:39:10 PTAGE: 52 years EKG: Sinus rhythm LOW QRS VOLTAGE IN PRECORDIAL LEADS BORDERLINE ECG PREVIOUS TRACING : 09/01/2017 22.35 Since previous tracing, no significant change noted DOCTOR: Alden Lee Interpretating Date/Time 09/02/2017 11:24:27
--- NOTE | 2017-09-02 11:33 | TR ---
Date Performed: 09/02/2017 Time Performed: 10:43:16 DOCTOR: Alden Lee DRUG LIST: CLINICAL HISTORY: ANGINA REASON FOR TEST: REASON FOR ENDING: OBSERVATION: CONCLUSION: Lexiscan stress test was performed under standard four minute protocol. Radionuclid e was injected one minute prior to ending the test. No electrocardiographic abormalities were present to suggest ischemia. Nuclear imaging and interpretation are pending. COMMENTS:
--- NOTE | 2017-09-02 12:04 | RADRPT ---
EXAM DATE: 09/02/2017 11:42 AM EDT AGE/SEX: 52 years / Female INDICATIONS:Angina. Atrial fibrillation Left sided chest pain radiating to shoulder. CLINICAL DATA: This is the patient's initial encounter. Patient reports that signs and symptoms have been present for 1 day and indicates a pain score of 5/10. MEDICAL/SURGICAL HISTORY: Hypertension. Diabetes mellitus type II. Hysterectomy. Tubal ligati on. COMPARISON: No prior exams available for comparison. No external comparison. DOSE: 35.0 mCi Tc 99m Myoview at rest 11.0 mCi [id number] at stress 0.4 mg Lexiscan STRESS SYMPTOMS: None. EJECTION FRACTION: 68 % TECHNIQUE: The patient underwent pharmacologic stress with infusion of prescribed dose. Continuous ECG tracing was monitored during stress. Gated SPECT imaging was performed after stress and conventi onal SPECT imaging was performed at rest. The examination was performed on a SPECT/CT scanner, both attenuation and non-corrected datasets were reviewed. FINDINGS: Distribution: The maximum perfused segment at stress is in the anterolateral wall. Perfusion Study: The pattern of perfusion at stress is within normal limits. Gated Study: There are intact wall motion and wall thickening without hypokinetic or dyskinetic segm ents. The ejection fraction is calculated at 68%. RISK CATEGORY: Low (<1% Annual Motality Rate) CONCLUSION: 1. No significant reversibility to suggest ischemia. 2. Normal wall motion with ejection fraction 68%. Electronically signed by: Jung Coppola MD 09/02/2017 12:03 PM EDT
--- NOTE | 2017-09-02 12:19 | HHI.DCPOC ---
Discharge Care Plan Diagnosis: (1) Chest pain, atypical (2) DM (diabetes mellitus) (3) Headache Goals to Promote Your Health * To prevent worsening of your condition and complications * To maintain your health at the optimal level Directions to Meet Your Goals Take your medications as prescribed Follow your dietary instruction Follow activity as directed Keep your appointments as scheduled Take your immunizations and boosters as scheduled If your symptoms worsen call your PCP, if no PCP go to Urgent Care Center or Emergency Room Smoking is Dangerous to Your Health. Avoid second hand smoke Call the 24-hour hour crisis hotline for domestic abuse at Oc Acuña Sep 02, 2017 12:19
== END 2017-09-02 14:35 | disposition home or self-care (01) ==
LOC: NEPE 15:46 → NEDA 21:30 → NEPFCDU 22:28
PROVIDERS: ADMIT Internal Medicine Interventional Cardiology; ATTEND Internal Medicine Interventional Cardiology
DX: R07.89 Other chest pain (principal); E11.9 Type 2 diabetes mellitus without complications; G43.909 Migraine, unspecified, not intractable, without status migrainosus; R03.0 Elevated blood-pressure reading, without diagnosis of hypertension; R11.2 Nausea with vomiting, unspecified; I48.91 Unspecified atrial fibrillation; Z91.19 Patient's noncompliance with other medical treatment and regimen
CPT/HCPCS: 70450; 71046; 78452; 80048; 82550; 82948; 84484; 85025; 93005; 93017; 96361; 96372; 96374; 96375; 99285; A9502; G0378; J0780; J1200; J1815; J2270; J2785; J7030